=== PATIENT | female | born 1940 | race Caucasian/White ===

== ENCOUNTER 2016-08-13 20:56 | Observation (INO) | payer MEDICARE, OTHER ==
[2016-08-13] MEDS ORDERED: DILTIAZEM HCL INJ 25 MG/5 ML VIAL ONE (21:20)
[2016-08-13] MEDS ORDERED: DILTIAZEM HCL/D5W 125 MG/125 ML RTUINJ IV ONE (21:20)
[2016-08-13] MEDS ORDERED: DILTIAZEM HCL INJ 25 MG/5 ML VIAL IV ONE (21:22)
[2016-08-13] MEDS ORDERED: DILTIAZEM HCL/D5W 125 ML IV PRN ×2 (21:23→23:25)
[2016-08-13 21:27] LABS: ABSOLUTE LYMPHOCYTES (AUTO) 2.5 10^3/uL (0.5-4.7); ABSOLUTE MONOCYTES (AUTO) 0.5 10^3/uL (0.1-1.4); ABSOLUTE NEUT (AUTO) 6.3 10^3/uL (1.7-8.2); BASOPHILS % (AUTO) 0.3 % (0-2); EOSINOPHILS % (AUTO) 0.2 % (0-6); HEMATOCRIT 43.2 % (36.0-47.0); HEMOGLOBIN 14.5 g/dL (12.0-15.5); HGB HCT DIFFERENCE 0.3; MEAN CORPUSCULAR HEMOGLOBIN 33.3 pg (27.0-33.4); MEAN CORPUSCULAR HGB CONC 33.6 g/dL (32.0-36.0); MEAN CORPUSCULAR VOLUME 99 fl (80-97); RED BLOOD COUNT 4.36 10^6/uL (3.72-5.28); RED CELL DISTRIBUTION WIDTH 15.5 % (11.5-14.0); SEGMENTED NEUTROPHILS % (AUTO) 67.5 % (42-78); WHITE BLOOD COUNT 9.4 10^3/uL (4.0-10.5)
[2016-08-13 21:37] LABS: ALANINE AMINOTRANSFERASE 32 U/L (9-52); ALBUMIN 4.4 g/dL (3.5-5.0); ALKALINE PHOSPHATASE 101 U/L (38-126); ANION GAP 12 (5-19); ASPARTATE AMINO TRANSFERASE 29 U/L (14-36); BILIRUBIN,TOTAL 0.6 mg/dL (0.2-1.3); BLOOD UREA NITROGEN 15 mg/dL (7-20); CALCIUM 9.5 mg/dL (8.4-10.2); CARBON DIOXIDE 27 mmol/L (22-30); CHLORIDE 108 mmol/L (98-107); CREATINE KINASE 56 U/L (30-135); GLUCOSE 118 mg/dL (75-110); POTASSIUM 3.6 mmol/L (3.6-5.0); SODIUM 146.7 mmol/L (137-145); TOTAL PROTEIN 7.5 g/dL (6.3-8.2)
[2016-08-13 21:49] LABS: CREATINE KINASE MB 0.59 ng/mL (<4.55)
[2016-08-13 21:53] LABS: TROPONIN I < 0.012 ng/mL
[2016-08-13 22:36] LABS: PROTHROMBIN TIME 13.1 SEC (11.4-15.4)
[2016-08-13 22:37] LABS: PARTIAL THROMBOPLASTIN TIME 27.5 SEC (23.5-35.8)
[2016-08-13] MEDS ORDERED: POTASSIUM CHLORIDE 10 MEQ TABLET.SA PO ONE (22:37)
--- NOTE | 2016-08-13 22:41 | EKG REPORT ---
SEVERITY:- ABNORMAL ECG - ATRIAL FLUTTER WITH 2:1 AV BLOCK LEFT AXIS DEVIATION LEFT VENTRICULAR HYPERTROPHY REPOLARIZATION ABNORMALITY, PROB RATE RELATED BORDERLINE PROLONGED QT INTERVAL : Confirmed by: Adrianne Camacho MD 13-Aug-2016 22:40:44
--- NOTE | 2016-08-13 23:03 | ER Document Report ---
ED General - General Chief Complaint: Palpitations Stated Complaint: CHEST PRESSURE, FAST HEART RATE Time seen by provider: 21:00 Mode of Arrival: Ambulatory Information source: Patient Notes: 75-year-old female with abrupt onset of feeling anxious along with rapid pounding irregular heartbeat midsternal chest pressure shortness of breath and diaphoresis about 6:00 this evening. Symptoms began while patient was at rest. She reports no prior history of symptoms like this. Symptoms persisted until her arrival in the emergency department. She reports being in normal state of health otherwise recently. She follows with Dr. David for what she describes as a weakness in the lower part of her heart but could not provide further details. Her knowledge she has never had any history of irregular heartbeat and is on no anticoagulation. She denies any prior history of ND or cardiac catheterization. Physical Exam: General: Alert, appears well. HEENT: Normocephalic. Atraumatic. PERRLA. Extraocular movements intact. Oropharynx clear. Neck: Supple. Non-tender. Respiratory: No respiratory distress. Clear and equal breath sounds bilaterally. Cardiovascular: Tachycardic and irregular PMI not displaced Abdominal: Normal Inspection. Soft, non-tender. No distension. Normal Bowel Sounds. Back: Non-tender. No deformity or step off. Extremities: Moves all four extremities. Upper extremities: Normal inspection. Non-tender. Normal color. Normal ROM. Normal temperature. Lower extremities: Normal inspection. Non-tender. No edema. Normal color. Normal ROM. Normal temperature. 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 Normal Mood. Skin: Warm. Dry. Normal color. TRAVEL OUTSIDE OF THE [place] IN LAST 30 DAYS: No - Related Data Allergies/Adverse Reactions: No Known Allergies Allergy (Verified 10/26/15 18:28) Past Medical History - Social History Smoking Status: Never Smoker Family History: CAD - Extensive family history of coronary artery disease and pacemaker placement in multiple family members - Past Medical History Cardiac Medical History: Reports: Hx Hypercholesterolemia, Hx Hypertension Musculoskeltal Medical History: Reports Hx Arthritis - Immunizations Immunizations up to date: Yes Hx Diphtheria, Pertussis, Tetanus Vaccination: Yes Review of Systems - Review of Systems Constitutional: denies: Chills, Fever EENT: denies: Ear pain, Throat pain Cardiovascular: See HPI. denies: Syncope, Dizziness Respiratory: Short of breath. denies: Cough Gastrointestinal: denies: Abdominal pain, Diarrhea, Nausea, Vomiting, Blood in vomit, Black stools, Rectal bleeding Genitourinary: denies: Burning, Dysuria Female Genitourinary: denies: Musculoskeletal: denies: Back pain, Muscle pain, Leg swelling Skin: denies: Rash Hematologic/Lymphatic: denies: Swollen glands Neurological/Psychological: denies: Weakness, Numbness Physical Exam - Vital signs Vitals: Resp Pulse Ox 30 H 97 08/13/16 21:18 08/13/16 21:18 Course - Re-evaluation Re-evalutation: 08/13/16 23:04 Patient treated with Cardizem 20 mg IV which produced gradual slowing of her heart rate to the 110's followed by a pause and then conversion to sinus rhythm. She is on Cardizem IV drip 2-1/2 mg per hour. Potassium is low end of normal and this will be supplemented. Patient had resolution of her chest discomfort and subjective sensation of anxiety and rapid heartbeat with correction of her tachyarrhythmia. I discussed case with Dr. Singh of hospitalist service who has asked the patient be admitted - Vital Signs Vital signs: Temp Pulse Resp BP Pulse Ox 98.4 F 18 133/77 H 96 08/13/16 21:34 08/13/16 21:43 08/13/16 21:34 08/13/16 21:34 - Laboratory Result Diagrams: 08/13/16 21:16 08/13/16 21:16 Laboratory results interpreted by me: 08/13/16 08/13/16 21:16 21:16 MCV 99 H RDW 15.5 H Plt Count 145 L Sodium 146.7 H Chloride 108 H Glucose 118 H - Diagnostic Test Radiology reviewed: Image reviewed, Reports reviewed - EKG Interpretation by Me Additional EKG results interpreted by me: 08/13/16 23:04 EKG reviewed by myself shows atrial fibrillation ventricular rate of [address] changes Discharge - Discharge Clinical Impression: Atrial fibrillation Qualifiers: Atrial fibrillation type: paroxysmal Qualified Code(s): I48.0 - Paroxysmal atrial fibrillation Condition: Fair Disposition: ADMITTED INPATIENT Admitting Provider: Hospitalist Unit Admitted: [facility]
[2016-08-13] MEDS ORDERED: METOPROLOL TARTRATE PF/INJ 5 MG/5 ML SDV IV PRN (23:19)
[2016-08-13] MEDS ORDERED: MORPHINE SULFATE 10 MG/ML INJ IV PRN (23:19)
[2016-08-13] MEDS ORDERED: ATORVASTATIN CALCIUM 80 MG TABLET PO SCH (23:30)
[2016-08-14] MEDS ORDERED: ENOXAPARIN SODIUM INJ 80 MG/0.8 ML DISP.SYRIN SUBCUT SCH ×2 (00:45→10:00)
[2016-08-14 03:44] LABS: PROTHROMBIN TIME 14.3 SEC (11.4-15.4)
[2016-08-14 04:08] LABS: CREATINE KINASE MB 0.76 ng/mL (<4.55); TROPONIN I 0.015 ng/mL
--- NOTE | 2016-08-14 06:01 | PDOC H&P ---
History of Present Illness Admission Date/PCP: 08/13/16 23:19 LAUREN CARRANZA, ALEXANDRA-C Patient complains of: Palpitations and chest pain History of Present Illness: PHOEBE SOSA is a 75 year old female with a past medical history of palpitations and hypertension who had been her usual state of health until approximately 4 hours prior to presentation developing tachycardia while at rest evaluating her blood pressure found her heart rate to be in the 160s prompting to seek evaluation emergency room. She complained of chest tightness without radiation mild shortness of breath without nausea vomiting or diaphoresis which completely resolved after rate control by IV diltiazem followed by conversion to normal sinus rhythm. Patient states she is been compliant with her medication regiment of Lopressor recently initiated by sling operator Dr. David, for brief intermittent tachycardia. Patient is noted to have significant vocal tremor and appears quite anxious, she admits over-the- counter medications but denies excessive caffeine, hormone replacement, Sudafed , diet supplements though also admits recently considering taking these medicines for sinus congestion and weight loss. Past Medical History Cardiac Medical History: Reports: Hyperlipidema, Hypertension Musculoskeltal Medical History: Reports: Arthritis Social History Information Source: Patient, Relative Lives with: Family Smoking Status: Never Smoker Frequency of Alcohol Use: None Hx Recreational Drug Use: No Drugs: None Hx Prescription Drug Abuse: No - Advance Directive Resuscitation Status: Full Code Family History Family History: CAD - Extensive family history of coronary artery disease and pacemaker placement in multiple family members Parental Family History Reviewed: Yes Children Family History Reviewed: Yes Sibling(s) Family History Reviewed.: Yes Medication/Allergy Home Medications: Aspirin [[place] Aspirin] 1 tab PO DAILY 08/13/16 Atorvastatin Calcium 40 mg PO QHS 08/13/16 Metoprolol Tartrate [Metoprolol Tartrate] 1 tab PO BID 08/13/16 Nitroglycerin [Nitrostat 0.4 mg (1/150 Gr) Tabs 25/Bottle] 0.4 mg SL Q5MP PRN Allergies/Adverse Reactions: No Known Allergies Allergy (Verified 10/26/15 18:28) Review of Systems Constitutional: ABSENT: chills, fever(s), headache(s), weight gain, weight loss Eyes: ABSENT: visual disturbances Ears: ABSENT: hearing changes Cardiovascular: PRESENT: palpitations Respiratory: ABSENT: cough, hemoptysis Gastrointestinal: ABSENT: abdominal pain, constipation, diarrhea, hematemesis, hematochezia, nausea, vomiting Genitourinary: ABSENT: dysuria, hematuria Musculoskeletal: ABSENT: joint swelling Integumentary: ABSENT: rash, wounds Neurological: ABSENT: abnormal gait, abnormal speech, confusion, dizziness, focal weakness, syncope Psychiatric: PRESENT: other - Though patient appears anxious she also states this is because of her current condition. ABSENT: anxiety, depression, homidical ideation, suicidal ideation Endocrine: ABSENT: cold intolerance, heat intolerance, polydipsia, polyuria Hematologic/Lymphatic: ABSENT: easy bleeding, easy bruising Physical Exam Vital Signs: Temp Pulse Resp BP Pulse Ox 97.7 F 71 14 111/52 L 98 08/14/16 01:15 08/14/16 04:00 08/14/16 01:15 08/14/16 05:02 08/14/16 05:02 Intake & Output 08/12/16 08/13/16 08/14/16 11:59 11:59 11:59 Intake Total 222 Balance 222 Weight 68.6 kg General appearance: PRESENT: cooperative, mild distress, well-developed, well- nourished Head exam: PRESENT: atraumatic, normocephalic Eye exam: PRESENT: conjunctiva pink, EOMI, PERRLA. ABSENT: scleral icterus Ear exam: PRESENT: normal external ear exam Mouth exam: PRESENT: moist, tongue midline Neck exam: ABSENT: carotid bruit, JVD, lymphadenopathy, thyromegaly Respiratory exam: PRESENT: clear to auscultation chapo. ABSENT: rales, rhonchi, wheezes Cardiovascular exam: PRESENT: RRR. ABSENT: diastolic murmur, rubs, systolic murmur Pulses: PRESENT: normal dorsalis pedis pul Vascular exam: PRESENT: normal capillary refill GI/Abdominal exam: PRESENT: normal bowel sounds, soft. ABSENT: distended, guarding, mass, organolmegaly, rebound, tenderness Rectal exam: PRESENT: deferred Extremities exam: PRESENT: full ROM. ABSENT: calf tenderness, clubbing, pedal edema Neurological exam: PRESENT: alert, awake, oriented to person, oriented to place , oriented to time, oriented to situation, CN II-XII grossly intact. ABSENT: motor sensory deficit Psychiatric exam: PRESENT: appropriate affect, normal mood. ABSENT: homicidal ideation, suicidal ideation Skin exam: PRESENT: dry, intact, warm. ABSENT: cyanosis, rash Results Laboratory Results: 08/14/16 03:08 TSH 2.11 08/14/16 03:08 CK-MB (CK-2) 0.76 Troponin I 0.015 Impressions: Chest X-Ray 08/13/16 21:07 IMPRESSION: NO ACUTE RADIOGRAPHIC FINDING IN THE CHEST. Assessment & Plan - Diagnosis (1) Atrial fibrillation Qualifiers: Atrial fibrillation type: paroxysmal Qualified Code(s): I48.0 - Paroxysmal atrial fibrillation Is this a current diagnosis for this admission?: YesPlan: Given history of palpitations I'm concerned for paroxysmal atrial fibrillation though fortunately converted on IV Cardizem I will transition to by mouth Lopressor at an increased dose from 25-50 twice a day and consider 2-D echo if none recent from Dr. David and initiate full dose Lovenox (2) Chest pain Is this a current diagnosis for this admission?: YesPlan: Likely secondary to uncontrolled A. fib I'll evaluate serial cardiac enzymes and consider a Cardiolite stress test if nonrecent with sling operator Dr. David - Time Time Spent: 30 to 50 Minutes
[2016-08-14 06:28] LABS: FREE T3 4.28 pg/mL (2.77-5.27)
[2016-08-14] MEDS ORDERED: NITROGLYCERIN 0.4 MG/TAB 25 TAB/BOTTLE SL PRN (08:51)
[2016-08-14] MEDS ORDERED: METOPROLOL TARTRATE 25 MG TABLET PO SCH ×2 (10:00)
[2016-08-14] MEDS ORDERED: ASPIRIN 81 MG TABLET, CHEWABLE PO SCH (10:00)
[2016-08-14 10:06] LABS: CREATINE KINASE MB 0.67 ng/mL (<4.55)
[2016-08-14] MEDS: DOCUSATE SODIUM 100 MG CAPSULE PO SCH ×2 (10:11→17:22)
[2016-08-14 10:17] LABS: TROPONIN I < 0.012 ng/mL
[2016-08-14 11:56] LABS: APPEARANCE,URINE SLIGHTLY-CLOUDY; BILIRUBIN,URINE NEGATIVE (NEGATIVE); GLUCOSE, URINE NEGATIVE (NEGATIVE); KETONES,URINE NEGATIVE (NEGATIVE); LEUKOCYTE ESTERASE,URINE NEGATIVE (NEGATIVE); NITRITE,URINE NEGATIVE (NEGATIVE); PROTEIN,URINE NEGATIVE (NEGATIVE); URINE SPECIFIC GRAVITY 1.024; UROBILINOGEN,URINE NEGATIVE mg/dL (<2.0)
--- NOTE | 2016-08-14 15:32 | PDOC PROGRESS REPORT ---
Subjective Progress Note for:: 08/14/16 Subjective:: Patient seen on morning rounds. She is resting comfortably in bed eating breakfast. Her daughters bedside. She has had no further episodes of atrial fibrillation. She denies chest pain, shortness breath or dyspnea. She denies nausea, vomiting, or diarrhea. She denies any back pain, arthralgias or myalgias. Physical Exam Vital Signs: Temp Pulse Resp BP Pulse Ox 97.5 F 64 20 117/52 L 98 08/14/16 11:55 08/14/16 14:00 08/14/16 11:55 08/14/16 11:55 08/14/16 11:55 Intake & Output 08/13/16 08/14/16 08/15/16 06:59 06:59 06:59 Intake Total 385 662 Output Total 200 Balance 385 462 Weight 68.6 kg Results Laboratory Results: 08/14/16 08/14/16 08/14/16 03:08 03:08 09:49 TSH 2.11 Free T4 1.30 Free T3 pg/mL 4.28 Urine Color Urine Appearance Urine pH Ur Specific [place] Urine Protein Urine Glucose (UA) Urine Ketones Urine Blood Urine Nitrite Ur Leukocyte Esterase Urine WBC (Auto) Urine RBC (Auto) Stool Occult Blood NEGATIVE 08/14/16 09:49 TSH Free T4 Free T3 pg/mL Urine Color YELLOW Urine Appearance SLIGHTLY-CLOUDY Urine pH 5.0 Ur Specific [place] 1.024 Urine Protein NEGATIVE Urine Glucose (UA) NEGATIVE Urine Ketones NEGATIVE Urine Blood NEGATIVE Urine Nitrite NEGATIVE Ur Leukocyte Esterase NEGATIVE Urine WBC (Auto) 1 Urine RBC (Auto) 9 Stool Occult Blood 08/14/16 08/14/16 03:08 09:02 CK-MB (CK-2) 0.76 0.67 Troponin I 0.015 < 0.012 Impressions: Chest X-Ray 08/13/16 21:07 IMPRESSION: NO ACUTE RADIOGRAPHIC FINDING IN THE CHEST. Assessment & Plan - Diagnosis (1) Atrial fibrillation Qualifiers: Atrial fibrillation type: paroxysmal Qualified Code(s): I48.0 - Paroxysmal atrial fibrillation Is this a current diagnosis for this admission?: YesPlan: She's had no further recurrence since her Cardizem bolus in the ER. Did discuss her case with her member of the legislative council . He recommended starting her on Eliquis 5 mg twice a day. We've increased her metoprolol to 50 g twice a day he agrees with that as well. He states he would give her prescription for diltiazem 60 mg to take by mouth with recurrence of atrial fibrillation post discharge. (2) Chest pain Qualifiers: Ischemic chest pain type: stable angina pectoris Is this a current diagnosis for this admission?: YesPlan: 3 sets of troponins are negative. She had a recent Cardiolite stress test by . He states her mild reversible ischemia. (3) Essential hypertension Is this a current diagnosis for this admission?: YesPlan: Toprol increased to 50 mg twice a day. She has normal times (4) Dyslipidemia Is this a current diagnosis for this admission?: YesPlan: Continue current statin - Time Time Spent with patient: 25-34 minutes Medications reviewed and adjusted accordingly: Yes Anticipated discharge: Home Within: within 24 hours
[2016-08-14 16:14] LABS: CREATINE KINASE MB 0.58 ng/mL (<4.55)
[2016-08-14 16:20] LABS: TROPONIN I < 0.012 ng/mL
[2016-08-14] MEDS ORDERED: APIXABAN 5 MG TABLET PO SCH (18:00)
[2016-08-14] MEDS ORDERED: METOPROLOL TARTRATE 50 MG TABLET PO SCH (22:00)
[2016-08-14] MEDS ORDERED: ATORVASTATIN CALCIUM 40 MG TABLET PO SCH (22:00)
[2016-08-15 00:18] LABS: APPEARANCE,URINE CLEAR; BILIRUBIN,URINE NEGATIVE (NEGATIVE); GLUCOSE, URINE NEGATIVE (NEGATIVE); KETONES,URINE NEGATIVE (NEGATIVE); LEUKOCYTE ESTERASE,URINE MODERATE (NEGATIVE); NITRITE,URINE NEGATIVE (NEGATIVE); PROTEIN,URINE NEGATIVE (NEGATIVE); URINE SPECIFIC GRAVITY 1.011; UROBILINOGEN,URINE NEGATIVE mg/dL (<2.0)
[2016-08-15] MEDS ORDERED: ATORVASTATIN CALCIUM 40 MG TABLET PO ONE (00:45)
[2016-08-15 08:52] VITALS: BP 110/47
--- NOTE | 2016-08-15 14:01 | PDOC DISCHARGE SUMMARY ---
General - Admit/Disc Date/PCP Admission Date/Primary Care Provider: 08/13/16 23:19 ALEXANDRA MARIA-[place] Discharge Date: 08/15/16 - Discharge Diagnosis (1) Atrial fibrillation Is this a current diagnosis for this admission?: YesSummary: Patient presented with atrial fibrillation with 160's. She converted with single bolus of IV Cardiazem and has not had any recurrence. Discussed with patient's baling machine tender Dr David, who felt patient should be placed on Eliquis therapy for possible paroxymal atrial fibrillation. We increased metoprolol to 50 mg bid as well. (2) Chest pain Is this a current diagnosis for this admission?: YesSummary: Troponins are remained negative. (3) Essential hypertension Is this a current diagnosis for this admission?: YesSummary: Continue current medication she is normotensive (4) Dyslipidemia Is this a current diagnosis for this admission?: YesSummary: Continue statin - Additional Information Resuscitation Status: Full Code Discharge Diet: Regular Discharge Activity: Activity As Tolerated, Balance Activity w/Rest Home Medications: Aspirin [Ecotrin 81 mg EC Tablet] 81 mg PO DAILY 08/14/16 Atorvastatin Calcium [Lipitor 40 mg Tablet] 40 mg PO DAILY 08/14/16 Nitroglycerin [Nitrostat] 0.4 mg SL Q5MP PRN 08/14/16 Apixaban [Eliquis 5 mg Tablet] 5 mg PO BID #60 tablet 08/15/16 Aspirin [Aspirin 81 mg Chewable Tablet] 81 mg PO DAILY tab.chew 08/15/16 Diltiazem HCl [Cardizem 60 mg Tablet] 60 mg PO BID PRN #60 tablet 08/15/16 Metoprolol Tartrate [Lopressor 50 mg Tablet] 50 mg PO Q12 #60 tablet 08/15/16 History of Present Illness Patient complains of: Palpitations History of Present Illness: PHOEBE SOSA is a 75 year old female with a past medical history of palpitations and hypertension who had been her usual state of health until approximately 4 hours prior to presentation developing tachycardia while at rest evaluating her blood pressure found her heart rate to be in the 160s prompting to seek evaluation emergency room. She complained of chest tightness without radiation mild shortness of breath without nausea vomiting or diaphoresis which completely resolved after rate control by IV diltiazem followed by conversion to normal sinus rhythm. Patient states she is been compliant with her medication regiment of Lopressor recently initiated by baling machine tender Dr. David, for brief intermittent tachycardia. Patient is noted to have significant vocal tremor and appears quite anxious, she admits over-the- counter medications but denies excessive caffeine, hormone replacement, Sudafed , diet supplements though also admits recently considering taking these medicines for sinus congestion and weight loss. Hospital Course Hospital Course: Patient was admitted to [facility] on telemetry. She was kept on IV diltiazem 2.5 mg per hour overnight. She had no further atrial fibrillation. We increased her metoprolol to 50 mg twice a day the following morning. The IV diltiazem was discontinued. She had no further bouts of atrial fibrillation. Her case was discussed with her baling machine tender , who states he had done a recent echo, stress test, and Holter monitor on her. She did have periods of paroxysmal atrial tachycardia, but no atrial fibrillation. He does feel she needs to be on Eliquis therapy due to the possibility paroxysmal atrial fibrillation. Today she's had no further arrhythmias she is tolerating Eliquis. Feels ready for discharge. She will follow up with Dr. David next 2 weeks. Physical Exam Vital Signs: Temp Pulse Resp BP Pulse Ox 98.1 F 63 18 110/47 L 96 08/15/16 08:50 08/15/16 08:50 08/15/16 08:50 08/15/16 08:50 08/15/16 08:50 Intake & Output 08/14/16 08/15/16 08/16/16 06:59 06:59 06:59 Intake Total 385 1852 Output Total 1300 Balance 385 552 Weight 68.6 kg 70.3 kg General appearance: PRESENT: no acute distress, well-developed, well-nourished Head exam: PRESENT: atraumatic, normocephalic Eye exam: PRESENT: conjunctiva pink, EOMI, PERRLA. ABSENT: scleral icterus Ear exam: PRESENT: normal external ear exam Mouth exam: PRESENT: moist, tongue midline Neck exam: ABSENT: carotid bruit, JVD, lymphadenopathy, thyromegaly Respiratory exam: PRESENT: clear to auscultation chapo. ABSENT: rales, rhonchi, wheezes Cardiovascular exam: PRESENT: RRR. ABSENT: diastolic murmur, rubs, systolic murmur Pulses: PRESENT: normal dorsalis pedis pul Vascular exam: PRESENT: normal capillary refill GI/Abdominal exam: PRESENT: normal bowel sounds, soft. ABSENT: distended, guarding, mass, organolmegaly, rebound, tenderness Rectal exam: PRESENT: deferred Extremities exam: PRESENT: full ROM. ABSENT: calf tenderness, clubbing, pedal edema Neurological exam: PRESENT: alert, awake, oriented to person, oriented to place , oriented to time, oriented to situation, CN II-XII grossly intact. ABSENT: motor sensory deficit Psychiatric exam: PRESENT: appropriate affect, normal mood. ABSENT: homicidal ideation, suicidal ideation Skin exam: PRESENT: dry, intact, warm. ABSENT: cyanosis, rash Results Laboratory Results: 08/14/16 23:55 Urine Color YELLOW Urine Appearance CLEAR Urine pH 6.0 Ur Specific [place] 1.011 Urine Protein NEGATIVE Urine Glucose (UA) NEGATIVE Urine Ketones NEGATIVE Urine Blood MODERATE H Urine Nitrite NEGATIVE Ur Leukocyte Esterase MODERATE H Urine WBC (Auto) 11 Urine RBC (Auto) 7 08/14/16 08/14/16 08/14/16 03:08 09:02 15:25 CK-MB (CK-2) 0.76 0.67 0.58 Troponin I 0.015 < 0.012 < 0.012 Impressions: Chest X-Ray 08/13/16 21:07 IMPRESSION: NO ACUTE RADIOGRAPHIC FINDING IN THE CHEST. Qualifiers PATEINT BEING DISCHARGED WITH ANY OF THE FOLLOWING DIAGNOSIS?: No Plan Discharge Plan: Home with family Time Spent: Less than 30 Minutes
== END 2016-08-15 10:15 | disposition home or self-care (01) ==
LOC: ER 20:56 → UNDOADMIN 23:10 → EH 23:10 → INTOOBSV 23:19 → EH 08-14 01:14 → 3W 08-14 01:14
PROVIDERS: ADMIT Internal Medicine; ATTEND Internal Medicine
DX: I48.0 Paroxysmal atrial fibrillation (principal); R07.9 Chest pain, unspecified; I10 Essential (primary) hypertension; E78.5 Hyperlipidemia, unspecified
CPT/HCPCS: 93005; 99285; 96365; 36415 ×2; 84439; 82553 ×2; 82550; 83735; 84443; 85025; 85610 ×2; 85730; 82272; 80053; 81001; 84484 ×2; 84481; 83880; 71010; 93010; G0378 ×2; A9270 ×7; J3490 ×4; J1650

== ENCOUNTER 2016-08-30 23:57 | Emergency (ER) | payer MEDICARE, OTHER ==
[2016-08-31 01:00] VITALS: BP 154/81
== END 2016-08-31 01:00 | disposition left against medical advice (07) ==
LOC: ER 23:57
DX: Z53.21 Procedure and treatment not carried out due to patient leaving prior to being seen by health care provider (principal)

== ENCOUNTER → 2016-09-16 | Outpatient (CLI) | payer MEDICARE, OTHER ==
[2016-09-16 10:30] LABS: ABSOLUTE LYMPHOCYTES (AUTO) 1.7 10^3/uL (0.5-4.7); ABSOLUTE MONOCYTES (AUTO) 0.3 10^3/uL (0.1-1.4); ABSOLUTE NEUT (AUTO) 6.4 10^3/uL (1.7-8.2); BASOPHILS % (AUTO) 0.2 % (0-2); EOSINOPHILS % (AUTO) 0.2 % (0-6); HEMATOCRIT 34.8 % (36.0-47.0); HEMOGLOBIN 11.9 g/dL (12.0-15.5); HGB HCT DIFFERENCE 0.9; LYMPHOCYTES % (AUTO) 20.6 % (13-45); MEAN CORPUSCULAR HEMOGLOBIN 33.8 pg (27.0-33.4); MEAN CORPUSCULAR HGB CONC 34.1 g/dL (32.0-36.0); MEAN CORPUSCULAR VOLUME 99 fl (80-97); MONOCYTES % (AUTO) 3.6 % (3-13); RED BLOOD COUNT 3.51 10^6/uL (3.72-5.28); SEGMENTED NEUTROPHILS % (AUTO) 75.4 % (42-78); WHITE BLOOD COUNT 8.4 10^3/uL (4.0-10.5)
[2016-09-16 10:42] LABS: APPEARANCE,URINE CLEAR; BILIRUBIN,URINE NEGATIVE (NEGATIVE); GLUCOSE, URINE NEGATIVE (NEGATIVE); KETONES,URINE NEGATIVE (NEGATIVE); LEUKOCYTE ESTERASE,URINE SMALL (NEGATIVE); NITRITE,URINE NEGATIVE (NEGATIVE); PROTEIN,URINE NEGATIVE (NEGATIVE); URINE SPECIFIC GRAVITY 1.015; UROBILINOGEN,URINE NEGATIVE mg/dL (<2.0)
[2016-09-16 10:55] LABS: ALANINE AMINOTRANSFERASE 28 U/L (9-52); ALBUMIN 3.9 g/dL (3.5-5.0); ALKALINE PHOSPHATASE 82 U/L (38-126); ANION GAP 10 (5-19); ASPARTATE AMINO TRANSFERASE 26 U/L (14-36); BILIRUBIN,TOTAL 0.5 mg/dL (0.2-1.3); BLOOD UREA NITROGEN 15 mg/dL (7-20); CALCIUM 8.7 mg/dL (8.4-10.2); CARBON DIOXIDE 27 mmol/L (22-30); CHLORIDE 108 mmol/L (98-107); CREATININE RESULT 0.58 mg/dL (0.52-1.25); GLUCOSE 99 mg/dL (75-110); POTASSIUM 4.2 mmol/L (3.6-5.0); SODIUM 145.3 mmol/L (137-145); TOTAL PROTEIN 6.4 g/dL (6.3-8.2)
== END ==
LOC: OD 09:27
PROVIDERS: ATTEND Internal Medicine Cardiovascular Disease
DX: R00.2 Palpitations (principal); Z79.01 Long term (current) use of anticoagulants; Z79.899 Other long term (current) drug therapy
CPT/HCPCS: 36415; 80048; 80076; 81001; 82272; 83735; 84443; 85025; 85730

== ENCOUNTER → 2016-10-30 | Outpatient (CLI) | payer MEDICARE, OTHER ==
--- NOTE | 2016-10-30 10:53 | RADIOLOGY REPORT (SQ) ---
EXAM DESCRIPTION: CT ABD/PELVIS COMBO COMPLETED DATE/TIME: 10/30/2016 9:36 am REASON FOR STUDY: MICROHEMATURIA (R31.29) R31.29 OTHER MICROSCOPIC HEMATURIA COMPARISON: None. TECHNIQUE: CT scan of the abdomen and pelvis performed with and without intravenous contrast, and wi thout oral contrast. Contrasted imaging performed helical scanning technique and dynamic intravenous contrast injection. Images reviewed with lung, soft tissue, and bone windows. Reconstructed coronal a nd sagittal MPR images reviewed. Delayed images for evaluation of the urinary system also acquired. A ll images stored on PACS. All CT scanners at this facility use dose modulation, iterative reconstruction, and/or weight based d osing when appropriate to reduce radiation dose to as low as reasonably achievable (ALARA). [facility]: Dose Right [facility]: CareDose [facility]: Dose Right [facility]: Teradose 4D [facility]: New [employer] CONTRAST TYPE AND DOSE: 74 mL Isovue 370- low osmolar. RENAL FUNCTION: Creatinine 0.7 RADIATION DOSE: 27.14 mGy. LIMITATIONS: None. FINDINGS: NON-CONTRASTED IMAGING: No renal, ureteral, or bladder calcifications. Calcified gallston es without gallbladder wall thickening or pericholecystic fluid. POST-CONTRASTED IMAGING: LOWER CHEST: No significant findings. No nodules or infiltrates. Mild cardiomegaly LIVER: Normal size. No masses or dilated ducts. SPLEEN: Normal size. No focal lesions. PANCREAS: No masses. No significant calcifications. No adjacent inflammation or peripancreatic fluid collections. Pancreatic duct not dilated. GALLBLADDER: Gallstones. No inflammatory changes to suggest cholecystitis. ADRENAL GLANDS: No significant masses or asymmetry. RIGHT KIDNEY AND URETER: No solid masses. No significant calcifications. No hydronephrosis or hyd roureter. LEFT KIDNEY AND URETER: No solid masses. Left lower pole parapelvic cysts. No significant calcifica tions. No hydronephrosis or hydroureter. AORTA AND VESSELS: No aneurysm. No dissection. Renal arteries, SMA, celiac without stenosis. RETROPERITONEUM: No retroperitoneal adenopathy, hemorrhage or masses. BOWEL AND PERITONEAL CAVITY: No masses or inflammatory changes. No free fluid or peritoneal masses. Sigmoid diverticuli without CT signs of acute diverticulitis. APPENDIX: Normal. PELVIS: No mass or free fluid. Normal bladder. Small uterus and ovaries postmenopausal. ABDOMINAL WALL: No masses. No hernias. BONES: Multilevel facet arthropathy in the lumbar spine with mild degenerative grade 1 anterolisthesi s of L4 over L5 OTHER: No other significant finding. IMPRESSION: Calcified gallstones without cholecystitis. Distal colon diverticuli without CT signs of acute diverticulitis No renal, ureteral, or bladder calculi. No hydronephrosis or hydroureter. No gross bladder mucosal lesions. TECHNICAL DOCUMENTATION: JOB ID: [id number] Quality ID # [id number]: Final reports with documentation of one or more dose reduction techniques (e.g., Au tomated exposure control, adjustment of the mA and/or kV according to patient size, use of iterative reconstruction technique) 2010 [employer]- All Rights Reserved
== END ==
LOC: RAD 08:43
PROVIDERS: ATTEND Urology
DX: R31.29 Other microscopic hematuria (principal)
CPT/HCPCS: 74178; 82565

== ENCOUNTER → 2017-01-21 | Outpatient (CLI) | payer MEDICARE, OTHER | LOC: OD 16:58 | PROVIDERS: ATTEND Internal Medicine Gastroenterology | DX: D64.9 Anemia, unspecified (principal) | CPT/HCPCS: 36415; 82746 ==

== ENCOUNTER → 2017-02-08 | Outpatient (CLI) | payer MEDICARE, OTHER ==
[2017-02-08 12:09] LABS: APPEARANCE,URINE CLEAR; BILIRUBIN,URINE NEGATIVE (NEGATIVE); GLUCOSE, URINE NEGATIVE (NEGATIVE); KETONES,URINE NEGATIVE (NEGATIVE); LEUKOCYTE ESTERASE,URINE NEGATIVE (NEGATIVE); NITRITE,URINE NEGATIVE (NEGATIVE); PROTEIN,URINE NEGATIVE (NEGATIVE); URINE SPECIFIC GRAVITY 1.002; UROBILINOGEN,URINE NEGATIVE mg/dL (<2.0)
[2017-02-08 12:20] LABS: ABSOLUTE LYMPHOCYTES (AUTO) 1.9 10^3/uL (0.5-4.7); ABSOLUTE MONOCYTES (AUTO) 0.2 10^3/uL (0.1-1.4); ABSOLUTE NEUT (AUTO) 1.4 10^3/uL (1.7-8.2); BASOPHILS % (AUTO) 0.1 % (0-2); EOSINOPHILS % (AUTO) 0.2 % (0-6); HEMATOCRIT 32.3 % (36.0-47.0); HEMOGLOBIN 10.7 g/dL (12.0-15.5); HGB HCT DIFFERENCE -0.2; LYMPHOCYTES % (AUTO) 54.7 % (13-45); MEAN CORPUSCULAR HEMOGLOBIN 35.5 pg (27.0-33.4); MEAN CORPUSCULAR HGB CONC 33.1 g/dL (32.0-36.0); MEAN CORPUSCULAR VOLUME 107 fl (80-97); MONOCYTES % (AUTO) 5.2 % (3-13); RED BLOOD COUNT 3.01 10^6/uL (3.72-5.28); RED CELL DISTRIBUTION WIDTH 16.5 % (11.5-14.0); SEGMENTED NEUTROPHILS % (AUTO) 39.8 % (42-78); WHITE BLOOD COUNT 3.4 10^3/uL (4.0-10.5)
[2017-02-08 12:44] LABS: BLOOD UREA NITROGEN 15 mg/dL (7-20); CALCIUM 9.5 mg/dL (8.4-10.2); CREATININE RESULT 0.66 mg/dL (0.52-1.25); GLUCOSE 97 mg/dL (75-110)
[2017-02-08 12:45] LABS: ALANINE AMINOTRANSFERASE 30 U/L (9-52); ALBUMIN 3.9 g/dL (3.5-5.0); ALKALINE PHOSPHATASE 80 U/L (38-126); ANION GAP 8 (5-19); ASPARTATE AMINO TRANSFERASE 27 U/L (14-36); BILIRUBIN,DIRECT 0.2 mg/dL (0.0-0.4); BILIRUBIN,TOTAL 0.5 mg/dL (0.2-1.3); CARBON DIOXIDE 30 mmol/L (22-30); CHLORIDE 106 mmol/L (98-107); POTASSIUM 4.9 mmol/L (3.6-5.0); SODIUM 144.1 mmol/L (137-145); TOTAL PROTEIN 6.6 g/dL (6.3-8.2)
== END ==
LOC: OD 10:56
PROVIDERS: ATTEND Internal Medicine Cardiovascular Disease
DX: Z79.01 Long term (current) use of anticoagulants (principal); Z79.899 Other long term (current) drug therapy
CPT/HCPCS: 36415; 80048; 80076; 81001; 82272; 85025; 85730

== ENCOUNTER 2017-03-06 02:16 | Inpatient (IN) | payer MEDICARE, OTHER ==
--- NOTE | 2017-03-06 03:08 | ER Document Report ---
ED General - General Chief Complaint: Dizziness Stated Complaint: DIZZINESS Time Seen by Provider: 03/06/17 02:50 Notes: Patient is a 76-year-old female comes emergency department for chief complaint of an episode just after midnight where she felt like her heart was racing, she felt lightheaded, and she broke out into a sweat. She felt this way for about 30 minutes. Symptoms have resolved now. She denies chest pain, shortness of breath, she does report that she had fevers yesterday and the day before that. She is on Levaquin for this. She is on chemotherapy for myelodysplastic syndrome, she also has a history of atrial fibrillation and is on Cardizem, Lopressor, and Eliquis. She has hypertension and hyperlipidemia. Daughters are at bedside. TRAVEL OUTSIDE OF THE [place] IN LAST 30 DAYS: No - Related Data Allergies/Adverse Reactions: No Known Allergies Allergy (Verified 08/31/16 00:40) Past Medical History - General Information source: Patient - Social History Smoking Status: Never Smoker Frequency of alcohol use: None Drug Abuse: None Lives with: Family Family History: CAD - Extensive family history of coronary artery disease and pacemaker placement in multiple family members Patient has suicidal ideation: No Patient has homicidal ideation: No - Past Medical History Cardiac Medical History: Reports: Hx Hypercholesterolemia, Hx Hypertension Renal/ Medical History: Denies: Hx Peritoneal Dialysis Musculoskeltal Medical History: Reports Hx Arthritis - Immunizations Immunizations up to date: Yes Hx Diphtheria, Pertussis, Tetanus Vaccination: Yes Hx Pneumococcal Vaccination: 02/29/16 Review of Systems - Review of Systems Constitutional: No symptoms reported EENT: No symptoms reported Cardiovascular: See HPI Respiratory: See HPI Gastrointestinal: No symptoms reported Genitourinary: No symptoms reported Female Genitourinary: No symptoms reported Musculoskeletal: No symptoms reported Skin: No symptoms reported Hematologic/Lymphatic: No symptoms reported Neurological/Psychological: No symptoms reported Physical Exam - Vital signs Vitals: Temp Pulse Resp BP Pulse Ox 97.8 F 100 18 137/63 H 97 03/06/17 02:19 03/06/17 02:19 03/06/17 02:19 03/06/17 02:19 03/06/17 02:19 Interpretation: Normal - General General appearance: Appears well, Alert In distress: None - HEENT Head: Normocephalic, Atraumatic Eyes: Normal Conjunctiva: Normal Extraocular movements intact: Yes Eyelashes: Normal Pupils: PERRL Sinus: Normal Nasal: Normal Mouth/Lips: Normal Mucous membranes: Normal Pharynx: Normal Neck: Normal - Respiratory Respiratory status: No respiratory distress Chest status: Nontender Breath sounds: Normal Chest palpation: Normal - Cardiovascular Rhythm: Regular. No: Irregularly irregular, Tachycardia Heart sounds: Normal auscultation, S1 appreciated, S2 appreciated Murmur: No - Abdominal Inspection: Normal Distension: No distension Bowel sounds: Normal Tenderness: Nontender. No: Tender, Guarding Organomegaly: No organomegaly - Back Back: Normal, Nontender. No: Tender, CVA tenderness - Extremities General upper extremity: Normal inspection, Nontender, Normal ROM, Normal strength General lower extremity: Normal inspection, Nontender, Normal ROM, Normal strength. No: Edema - Neurological Neuro grossly intact: Yes Cognition: Normal Orientation: AAOx4 [place] Coma Scale Eye Opening: Spontaneous [place] Coma Scale Verbal: Oriented [place] Coma Scale Motor: Obeys Commands [place] Coma Scale Total: 15 Speech: Normal Motor strength normal: LUE, RUE, LLE, RLE Sensory: Normal - Psychological Associated symptoms: Normal affect, Normal mood - Skin Skin Temperature: Warm Skin Moisture: Dry Skin Color: Normal Course - Re-evaluation Re-evalutation: Patient has remained well-appearing, symptom-free, no concerning findings on cardiac monitoring. CBC shows pancytopenia consistent with chemotherapy, chemistry unremarkable including cardiac enzyme. Chest x-ray appears clear, still pending reading (delayed due to a system problem per emergency medical tech when I called). Discussed workup with family. They are uncomfortable going home based on patient's symptoms, I am concerned about a tachyarrhythmia causing her symptoms , based on patient's history this is most likely atrial fibrillation with rapid ventricular response but this is uncertain at this time. Patient has had recent echocardiogram but does not know the results yet. Will consider admit for observation based on age, history, and her concerning symptoms. Discussed with Dr. Adams, recommends admit for observation. Discussed with Dr. Morales, patient to be admitted to [facility] observation, patient and family members are very satisfied with this plan. - Vital Signs Vital signs: Temp Pulse Resp BP Pulse Ox 97.8 F 100 16 139/58 H 100 03/06/17 02:19 03/06/17 02:19 03/06/17 05:31 03/06/17 05:31 03/06/17 05:31 - Laboratory Result Diagrams: 03/06/17 03:22 03/06/17 03:22 Laboratory results interpreted by me: 03/06/17 03/06/17 03/06/17 03:22 03:22 05:29 WBC 2.6 L RBC 2.51 L Hgb 9.1 L Hct 26.1 L MCV 104 H MCH 36.3 H RDW 16.0 H Plt Count 52 L Seg Neuts % (Manual) 9 L Lymphocytes % (Manual) 73 H Abs Neuts (Manual) 0.2 L Glucose 113 H Urine Blood SMALL H Urine Ascorbic Acid 40 H Discharge - Discharge Clinical Impression: Palpitations, Diaphoresis, Lightheadedness Condition: Stable Disposition: ADMITTED OBSERVATION Admitting Provider: Hospitalist Unit Admitted: [facility]
[2017-03-06 03:43] LABS: HEMATOCRIT 26.1 % (36.0-47.0); HEMOGLOBIN 9.1 g/dL (12.0-15.5); HGB HCT DIFFERENCE 1.2; MEAN CORPUSCULAR HEMOGLOBIN 36.3 pg (27.0-33.4); MEAN CORPUSCULAR HGB CONC 34.9 g/dL (32.0-36.0); MEAN CORPUSCULAR VOLUME 104 fl (80-97); RED BLOOD COUNT 2.51 10^6/uL (3.72-5.28); WHITE BLOOD COUNT 2.6 10^3/uL (4.0-10.5)
[2017-03-06 04:05] LABS: ALANINE AMINOTRANSFERASE 30 U/L (9-52); ALBUMIN 3.6 g/dL (3.5-5.0); ALKALINE PHOSPHATASE 64 U/L (38-126); ANION GAP 8 (5-19); ASPARTATE AMINO TRANSFERASE 24 U/L (14-36); BILIRUBIN,DIRECT 0.2 mg/dL (0.0-0.4); BILIRUBIN,TOTAL 0.6 mg/dL (0.2-1.3); BLOOD UREA NITROGEN 12 mg/dL (7-20); CALCIUM 9.1 mg/dL (8.4-10.2); CARBON DIOXIDE 25 mmol/L (22-30); CHLORIDE 107 mmol/L (98-107); CREATINE KINASE 33 U/L (30-135); CREATININE RESULT 0.58 mg/dL (0.52-1.25); GLUCOSE 113 mg/dL (75-110); MAGNESIUM 2.1 mg/dL (1.6-2.3); POTASSIUM 4.6 mmol/L (3.6-5.0); TOTAL PROTEIN 6.4 g/dL (6.3-8.2)
[2017-03-06 04:13] LABS: ACANTHOCYTES SLIGHT; ANISOCYTOSIS 1+; BASOPHILS % (MANUAL) 0 % (0-2); EOSINOPHILS % (MANUAL) 0 % (0-6); LYMPHOCYTES % (MANUAL) 73 % (13-45); OVALOCYTES 1+; POIKILOCYTOSIS 1+; POLYCHROMASIA SLIGHT; TEAR DROP CELLS 1+; TOTAL CELLS COUNTED 100
[2017-03-06 04:15] LABS: CREATINE KINASE MB 0.33 ng/mL (<4.55)
[2017-03-06 04:17] LABS: TROPONIN I < 0.012 ng/mL
[2017-03-06 05:51] LABS: APPEARANCE,URINE CLEAR; BILIRUBIN,URINE NEGATIVE (NEGATIVE); GLUCOSE, URINE NEGATIVE (NEGATIVE); KETONES,URINE NEGATIVE (NEGATIVE); LEUKOCYTE ESTERASE,URINE NEGATIVE (NEGATIVE); NITRITE,URINE NEGATIVE (NEGATIVE); PROTEIN,URINE NEGATIVE (NEGATIVE); URINE SPECIFIC GRAVITY 1.006; UROBILINOGEN,URINE NEGATIVE mg/dL (<2.0)
[2017-03-06] MEDS ORDERED: ACETAMINOPHEN 325 MG TABLET PO PRN (07:50)
[2017-03-06] MEDS ORDERED: PROMETHAZINE HCL 25 MG TABLET PO PRN (07:50)
--- NOTE | 2017-03-06 08:05 | PDOC H&P ---
History of Present Illness Admission Date/PCP: 03/06/17 05:[address] David Oncology Dr. Rodriguez--myelodysplastic syndrome Patient complains of: Palpitations History of Present Illness: PHOEBE SOSA is a 76 year old female with underlying myelodysplastic syndrome, having been started on Levaquin 2 days ago for low- grade fever 100.[address] Rodriguez, along with underlying atrial fibrillation, currently on Eliquis for same, who presents to the emergency room for evaluation of above complaint. Patient has been discussed with emergency room nurse practitioner who evaluated the patient. Approximately midnight, she had the sensation that her heart was racing, with associated lightheadedness and diaphoresis. Lasted for approximately 30 minutes , and resolved on its own. No symptoms by the time she arrived in the emergency room. Denied chest pain or shortness of breath. Denies any "sore spot" anywhere on her body. No unusual cough. Currently resting quietly, without specific complaint. Hospitalized on our service August 13- of this year, with final diagnoses including atrial fibrillation, and chest pain. History and physical and discharge summary have been reviewed. Dictation via voice recognition software. Laboratory results are listed in [facility] and are reviewed. Portable AP chest x-ray visualized; radiology interpretation pending. EKG reviewed and compared to prior tracing from August 13 of this year. Social history/personal habits: . Lives with . Retired. No use of alcohol tobacco or illicit drugs. No known drug allergies. Home medications initially autopopulated into [facility] may not accurately reflect patient's true medications, dosages, and/or frequencies. strain technician to reconcile medications. Unfortunately, patient not certain of all medications/dosages/frequencies. REVIEW OF SYSTEMS: Constitutional: See history and present illness. Eyes: Wears glasses. ENT: No swallowing problems or complaints. Partial hearing loss. Pulmonary: No current complaints. Cardiovascular: See history and present illness. Gastrointestinal: No current complaints, including nausea or vomiting. Skin: Scheduled to see a major case detective in the near future for suspicious skin lesion noted by Dr. Rodriguez, per daughter. Hematologic: Easy bruising. Neurologic: No current complaints, including numbness or tingling. Musculoskeletal: Joint pain from arthritis. Psychiatric: Denies anxiety or depression. Endocrine: No current complaints, including polyuria. Genitourinary: No current complaints, including dysuria. PHYSICAL EXAMINATION: 77.1 kg. Height is not recorded on the chart. Blood pressure 132/52. Pulse 90 and regular. 97% saturation on room air. Respirations are 14 and unlabored. Temperature 97.8. Somewhat overweight otherwise well-nourished well-developed female who appears a bit younger than her stated age. Pleasant awake alert and cooperative. No obvious distress other than somewhat anxious. 2 daughters are present at her side; patient approves. Skin is warm and dry. No grossly obvious evidence of rash in areas of skin examined. No subcutaneous nodules palpated. ENT: Slightly hard of hearing to normal conversation. Tongue midline on protrusion pink and slightly tacky. Eyes: No scleral icterus. Pupils equal and reactive to light at 4 mm. [place] conjunctivae. Neck is supple and nontender to gentle active range of motion and palpation. Midline trachea. No palpable thyroid nodule mass enlargement or tenderness. Lymphatic: No palpable cervical or clavicular nodes. Neck and lymphatic exams limited by patient body habitus. Psychiatric: Reasonable insight into acute and chronic medical issues. Oriented to time location and why here. Lungs: Auscultation reveals clear and equal breath sounds bilaterally. No use of accessory respiratory muscles. Cardiovascular: Heart regular rate and rhythm, without gallop murmur or rub. No carotid or abdominal aortic bruits. No ankle or pedal edema. Faintly palpable dorsalis pedis pulses. Abdomen:soft slightly distended nontender with positive bowel sounds. Unable to adequately evaluate abdomen for masses or organomegaly due to distention. Extremities: Feet are warm and dry. No calf tenderness to compression. No grossly obvious visual evidence of calf swelling. Gentle manipulation of lower extremities fails to reveal any obvious evidence of injury or instability to knees hips or ankles. Neurologic: Moves upper extremities grossly normally. Patellar reflexes absent. Absent Babinski. Light touch is intact at feet. Dorsiflexion and plantarflexion of feet 5 / 5 and symmetric. Past Medical History Cardiac Medical History: Reports: Hyperlipidema, Hypertension Musculoskeltal Medical History: Reports: Arthritis Social History Information Source: Patient, Relative - 2 daughters, Emergency Med Personnel, [facility] Records Lives with: Family Smoking Status: Never Smoker Frequency of Alcohol Use: None Hx Recreational Drug Use: No Drugs: None Hx Prescription Drug Abuse: No - Advance Directive Resuscitation Status: Full Code Surrogate healthcare decision maker:: Family History Family History: CAD - Extensive family history of coronary artery disease and pacemaker placement in multiple family members Parental Family History Reviewed: Yes - Parents of heart disease. Children Family History Reviewed: Yes - Daughter had liposarcoma excised last year. Sibling(s) Family History Reviewed.: Yes - Heart disease Medication/Allergy Home Medications: RX: Apixaban [Eliquis] 5 mg PO Q12 03/06/17 RX: Aspirin [Ecotrin 81 mg EC Tablet] 81 mg PO DAILY 03/06/17 RX: Atorvastatin Calcium [Lipitor 40 mg Tablet] 40 mg PO DAILY 03/06/17 RX: Docusate Sodium [Colace 100 mg Capsule] 100 mg PO DAILYP PRN 03/06/17 RX: Nitroglycerin [Nitrostat] 0.4 mg PO Q5MP PRN 03/06/17 RX: Amox Tr/Potassium Clavulanate [Augmentin "500" Tablet] 1 tab PO Q8 #30 tablet 03/10/17 RX: Fluticasone Propionate [Flonase Nasal Pike 50 Mcg/Pike 16 gm] 2 spray NASL Q12 #1 spray.pump 03/10/17 RX: Loratadine [Claritin 10 mg Tablet] 10 mg PO QHS #30 tablet 03/10/17 RX: Metoprolol Succinate [Toprol Xl 50 mg Tab.sr] 100 mg PO Q12 #120 tab.sr.24h 03/10/17 Allergies/Adverse Reactions: No Known Allergies Allergy (Verified 08/31/16 00:40) Physical Exam Vital Signs: Temp Pulse Resp BP Pulse Ox 98.3 F 82 19 113/88 H 95 03/06/17 07:25 03/06/17 07:25 03/06/17 07:25 03/06/17 07:25 03/06/17 07:25 Assessment & Plan - Diagnosis (1) Fever Qualifiers: Fever type: unspecified Qualified Code(s): R50.9 - Fever, unspecified Is this a current diagnosis for this admission?: Yes Plan: Blood and urine cultures have been drawn. Continue Levaquin. No obvious source of infection at this point in time. (2) Palpitations Is this a current diagnosis for this admission?: Yes Plan: Uncertain source or significance--normal reaction to fever versus atrial fibrillation. We will maintain on certified professional midwife. Serial troponins; results to be called today hospitalist team. I have strongly encouraged patient not to get out of bed without notifying staff , to avoid a fall with injury. Knee high SCDs for DVT prophylaxis; with patient on Eliquis, no need for Lovenox or heparin. Impression and plans were discussed with patient and 2 daughters, all of whom concur. Time spent in evaluation and management of patient: 70 minutes. (3) Pancytopenia Is this a current diagnosis for this admission?: Yes Plan: Protective precautions. Cardiac neutropenic diet. (4) MDS (myelodysplastic syndrome) Is this a current diagnosis for this admission?: Yes (5) Anticoagulated Is this a current diagnosis for this admission?: Yes Plan: Resume home medications as appropriate once these have been determined and reviewed. (6) Atrial fibrillation Qualifiers: Atrial fibrillation type: paroxysmal Qualified Code(s): I48.0 - Paroxysmal atrial fibrillation Is this a current diagnosis for this admission?: Yes Plan: Resume home medications as appropriate once these have been determined and reviewed. (7) Dyslipidemia Is this a current diagnosis for this admission?: Yes Plan: Resume home medications as appropriate once these have been determined and reviewed. (8) Essential hypertension Is this a current diagnosis for this admission?: Yes Plan: Resume home medications as appropriate once these have been determined and reviewed. - Time Time Spent: 50 to 70 Minutes Medications reviewed and adjusted accordingly: No - Patient uncertain of certain medications. Anticipated discharge: Home Within: within 48 hours
--- NOTE | 2017-03-06 08:12 | RADIOLOGY REPORT (SQ) ---
EXAM DESCRIPTION: CHEST SINGLE VIEW COMPLETED DATE/TIME: 03/06/2017 5:04 am REASON FOR STUDY: PALPITATIONS, DIAPHROESIS, FEVER COMPARISON: 08/13/2016 EXAM PARAMETERS: NUMBER OF VIEWS: One view. TECHNIQUE: Single frontal radiographic view of the chest acquired. RADIATION DOSE: NA LIMITATIONS: None. FINDINGS: LUNGS AND PLEURA: No opacities, masses or pneumothorax. No pleural effusion. MEDIASTINUM AND HILAR STRUCTURES: No masses. Contour normal. HEART AND VASCULAR STRUCTURES: Heart normal in size. Normal vasculature. BONES: No acute findings. HARDWARE: None in the chest. OTHER: No other significant finding. IMPRESSION: NO ACUTE RADIOGRAPHIC FINDING IN THE CHEST. NO SIGNIFICANT CHANGE FROM PRIOR STUDY. TECHNICAL DOCUMENTATION: JOB ID: [id number]
[2017-03-06] MEDS ORDERED: DOCUSATE SODIUM 100 MG CAPSULE PO PRN (09:33)
[2017-03-06] MEDS ORDERED: VANCOMYCIN HCL 0 MG in DEXTROSE 5%-WATER 250 ML IV NR (09:45)
[2017-03-06] MEDS ORDERED: APIXABAN 5 MG TABLET PO SCH (10:00)
[2017-03-06] MEDS: METOPROLOL TARTRATE 50 MG TABLET PO SCH ×2 (11:25→23:07)
[2017-03-06] MEDS: NORMAL SALINE 1000 ML 1,000 ML IV PRN (11:27)
[2017-03-06] MEDS: CEFEPIME 2 GM/D5W RTU 2 GM/50 ML RTUPB IV SCH ×2 (11:57→22:35)
[2017-03-06] MEDS: VANCOMYCIN HCL 750 MG in DEXTROSE 5%-WATER 250 ML IV SCH (14:13)
--- NOTE | 2017-03-06 16:14 | PDOC PROGRESS REPORT ---
Subjective Progress Note for:: 03/06/17 Subjective:: She reports she is feeling significantly better. Patient reports she was having a bit more cough at home prior to presentation. She denied any diarrhea. Patient denies chest pain, shortness of breath, abdominal pain, nausea, vomiting , fevers, chills, diarrhea, constipation, headache, new onset weakness. Patient does report she gets a little dizzy on standing. Physical Exam Vital Signs: Temp Pulse Resp BP Pulse Ox 97.8 F 79 16 121/54 L 96 03/06/17 12:15 03/06/17 12:15 03/06/17 12:15 03/06/17 12:15 03/06/17 12:15 Exam: General: Hard of hearing, awake alert and orientedx3, no acute respiratory distress HEENT: AT/NC, PERRL, EOMI, oropharynx is dry, pink, no scleral icterus, no conjunctival injection Neck: No JVD, trachea midline Chest: crackles RUL CV: Regular rate and rhythm, normal S1 and S2, no murmur, rub, or gallop Abdomen: Soft, nontender to palpation, nondistended, active bowel sounds; no rebound, rigidity, or guarding Extremities: No cyanosis, clubbing or edema Neuro: Cranial nerves II through XII are grossly intact without focal deficits; awake alert and oriented x3 Psych: Normal mood and affect Results Laboratory Results: 03/06/17 09:38 Troponin I < 0.012 Assessment & Plan - Diagnosis (1) Sepsis Qualifiers: Sepsis type: sepsis due to unspecified organism Qualified Code(s): A41.9 - Sepsis, unspecified organism Is this a current diagnosis for this admission?: Yes Plan: Neutropenic sepsis likely secondary to underlying pneumonia Place patient on vancomycin and cefepime pending blood, urine cultures, chest x- ray was unrevealing, but patient is quite neutropenic (2) Right upper lobe pneumonia Qualifiers: Pneumonia type: due to unspecified organism Qualified Code(s): J18.1 - Lobar pneumonia, unspecified organism Is this a current diagnosis for this admission?: Yes Plan: Patient sounds as though she has a right upper lobe pneumonia. She will placed on vancomycin and cefepime pending cultures. Patient is not requiring oxygen at this time (3) Neutropenia Qualifiers: Neutropenia type: secondary to cancer chemotherapy Qualified Code(s): D70.1 - Agranulocytosis secondary to cancer chemotherapy; T45.1X5A - Adverse effect of antineoplastic and immunosuppressive drugs, initial encounter; T45.1X5A - Adverse effect of antineoplastic and immunosuppressive drugs, initial encounter Is this a current diagnosis for this admission?: Yes Plan: Patient with neutropenia secondary to MDS as well as ongoing chemotherapy No Neupogen at this time secondary to MDS We will consult her oncologist when he returns on Wednesday (4) Pancytopenia Is this a current diagnosis for this admission?: Yes Plan: For her neutropenia, she has been placed on neutropenic precautions cultures are pending, and this will be monitored. For her thrombocytopenia, patient has been cautioned about falling, and risk of spontaneous bleeding. Her anticoagulation has been stopped. For her anemia, we will monitor and transfuse if patient drops below 8. (5) MDS (myelodysplastic syndrome) Is this a current diagnosis for this admission?: Yes Plan: We will consult oncology (6) Anticoagulated Is this a current diagnosis for this admission?: Yes Plan: Hold secondary to thrombus cytopenia (7) Atrial fibrillation Qualifiers: Atrial fibrillation type: paroxysmal Qualified Code(s): I48.0 - Paroxysmal atrial fibrillation Is this a current diagnosis for this admission?: Yes Plan: Continue metoprolol stop Eliquis secondary to thrombocytopenia (8) Dyslipidemia Is this a current diagnosis for this admission?: Yes (9) Essential hypertension Is this a current diagnosis for this admission?: Yes Plan: Currently mildly hypotensive secondary to dehydration (10) Obesity (BMI 30.0-34.9) Is this a current diagnosis for this admission?: Yes - Time Time Spent with patient: 35 or more minutes - Inpatient Certification Based on my medical assessment, after consideration of the patient's comorbidities, presenting symptoms, or acuity I expect that the services needed warrant INPATIENT care.: Yes I certify that my determination is in accordance with my understanding of Medicare's requirements for reasonable and necessary INPATIENT services [42 CFR 412.3e].: Yes Medical Necessity: Need For IV Fluids, Need for IV Antibiotics Post Hospital Care: D/C Chest Painting And Sealing Supervisor Documentation - Plan Summary Plan Summary: Total time spent with patient including patient education, physical examination , discussion with consultants, and formulation of plan was 60 minutes.
[2017-03-06] MEDS ORDERED: VANCOMYCIN HCL INJ 1000 MG VIAL ONE (23:27)
[2017-03-07] MEDS: VANCOMYCIN HCL 750 MG in DEXTROSE 5%-WATER 250 ML IV SCH ×2 (01:00→13:39)
[2017-03-07 05:20] LABS: HEMATOCRIT 23.7 % (36.0-47.0); HEMOGLOBIN 8.5 g/dL (12.0-15.5); HGB HCT DIFFERENCE 1.8; MEAN CORPUSCULAR HEMOGLOBIN 37.4 pg (27.0-33.4); MEAN CORPUSCULAR HGB CONC 35.9 g/dL (32.0-36.0); MEAN CORPUSCULAR VOLUME 104 fl (80-97); RED BLOOD COUNT 2.28 10^6/uL (3.72-5.28); RED CELL DISTRIBUTION WIDTH 16.1 % (11.5-14.0); WHITE BLOOD COUNT 2.2 10^3/uL (4.0-10.5)
[2017-03-07 05:25] LABS: ANION GAP 9 (5-19); BLOOD UREA NITROGEN 14 mg/dL (7-20); CALCIUM 8.3 mg/dL (8.4-10.2); CARBON DIOXIDE 25 mmol/L (22-30); CHLORIDE 108 mmol/L (98-107); CREATININE RESULT 0.65 mg/dL (0.52-1.25); GLUCOSE 102 mg/dL (75-110); POTASSIUM 3.9 mmol/L (3.6-5.0); SODIUM 142.4 mmol/L (137-145)
[2017-03-07 06:08] LABS: BASOPHILS % (MANUAL) 0 % (0-2); EOSINOPHILS % (MANUAL) 1 % (0-6); TOTAL CELLS COUNTED 100
[2017-03-07 06:12] LABS: ANISOCYTOSIS 1+; OVALOCYTES SLIGHT; POIKILOCYTOSIS SLIGHT; POLYCHROMASIA SLIGHT; TEAR DROP CELLS SLIGHT
[2017-03-07 06:13] LABS: TOXIC GRANULATION SLIGHT; TOXIC VACUOLATION PRESENT
[2017-03-07 06:17] LABS: LYMPHOCYTES % (MANUAL) 83 % (13-45)
[2017-03-07] MEDS: METOPROLOL TARTRATE 50 MG TABLET PO SCH ×2 (10:13→21:38)
[2017-03-07] MEDS: CEFEPIME 2 GM/D5W RTU 2 GM/50 ML RTUPB IV SCH ×2 (10:14→21:37)
--- NOTE | 2017-03-07 14:56 | PDOC PROGRESS REPORT ---
Subjective Progress Note for:: 03/07/17 Subjective:: She reports that she is having left maxillary pain and yellow sinus drainage. She does report that she is coughing more today than previous. Patient reports she is feeling significantly better. She is seen with her daughter at bedside. Nursing is also present. Patient reports she is feeling antsy and wants to go for a walk. Patient denies chest pain, shortness of breath, abdominal pain, nausea, vomiting , fevers, chills, diarrhea, constipation, headache, new onset weakness. Physical Exam Vital Signs: Temp Pulse Resp BP Pulse Ox 98.1 F 76 18 118/44 L 96 03/07/17 03:28 03/07/17 03:28 03/07/17 03:28 03/07/17 03:28 03/07/17 03:28 Intake & Output 03/06/17 03/07/17 03/08/17 06:59 06:59 06:59 Intake Total 2865 Output Total 900 Balance 1965 Exam: General: Hard of hearing, awake alert and oriented x3, no acute respiratory distress HEENT: AT/NC, PERRL, EOMI, oropharynx is moist, pink, no scleral icterus, no conjunctival injection Neck: No JVD, trachea midline Chest: Clear to auscultation bilaterally CV: Regular rate and rhythm, normal S1 and S2, no murmur, rub, or gallop Abdomen: Soft, nontender to palpation, nondistended, active bowel sounds; no rebound, rigidity, or guarding Extremities: No cyanosis, clubbing or edema Neuro: Cranial nerves II through XII are grossly intact without focal deficits; awake alert and oriented x3 Psych: Normal mood and affect Results Laboratory Results: 03/07/17 04:49 03/07/17 04:49 03/07/17 03/07/17 04:49 04:49 WBC 2.2 L RBC 2.28 L Hgb 8.5 L Hct 23.7 L MCV 104 H MCH 37.4 H MCHC 35.9 RDW 16.1 H Plt Count 59 L Seg Neutrophils % Not Reportable Lymphocytes % Not Reportable Monocytes % Not Reportable Eosinophils % Not Reportable Basophils % Not Reportable Absolute Neutrophils Not Reportable Absolute Lymphocytes Not Reportable Absolute Monocytes Not Reportable Absolute Eosinophils Not Reportable Absolute Basophils Not Reportable Sodium 142.4 Potassium 3.9 Chloride 108 H Carbon Dioxide 25 Anion Gap 9 BUN 14 Creatinine 0.65 Est GFR ( Amer) > 60 Est GFR (Non-Af Amer) > 60 Glucose 102 Calcium 8.3 L Magnesium 2.0 03/06/17 03/06/17 09:38 18:25 Troponin I < 0.012 < 0.012 Assessment & Plan - Diagnosis (1) Sepsis Qualifiers: Sepsis type: sepsis due to unspecified organism Qualified Code(s): A41.9 - Sepsis, unspecified organism Is this a current diagnosis for this admission?: Yes Plan: Neutropenic sepsis likely secondary to underlying pneumonia Place patient on vancomycin and cefepime pending blood, urine cultures, chest x- ray was unrevealing. Pending sputum culture (2) Right upper lobe pneumonia Qualifiers: Pneumonia type: due to unspecified organism Qualified Code(s): J18.1 - Lobar pneumonia, unspecified organism Is this a current diagnosis for this admission?: Yes Plan: Patient sounds as though she has a right upper lobe pneumonia. On vancomycin and cefepime pending cultures. Patient is not requiring oxygen at this time (3) Neutropenia Qualifiers: Neutropenia type: secondary to cancer chemotherapy Qualified Code(s): D70.1 - Agranulocytosis secondary to cancer chemotherapy; T45.1X5A - Adverse effect of antineoplastic and immunosuppressive drugs, initial encounter; T45.1X5A - Adverse effect of antineoplastic and immunosuppressive drugs, initial encounter Is this a current diagnosis for this admission?: Yes Plan: Patient with neutropenia secondary to MDS as well as ongoing chemotherapy No Neupogen at this time secondary to MDS We will consult her oncologist when he returns on Wednesday (4) Pancytopenia Is this a current diagnosis for this admission?: Yes Plan: For her neutropenia, she has been placed on neutropenic precautions cultures are pending, and this will be monitored. For her thrombocytopenia, patient has been cautioned about falling, and risk of spontaneous bleeding. Her anticoagulation has been stopped. For her anemia, we will monitor and transfuse if patient drops below 8. (5) MDS (myelodysplastic syndrome) Is this a current diagnosis for this admission?: Yes Plan: We will consult oncology (6) Anticoagulated Is this a current diagnosis for this admission?: Yes Plan: Hold secondary to thrombocytopenia (7) Atrial fibrillation Qualifiers: Atrial fibrillation type: paroxysmal Qualified Code(s): I48.0 - Paroxysmal atrial fibrillation Is this a current diagnosis for this admission?: Yes Plan: Continue metoprolol stop Eliquis secondary to thrombocytopenia (8) Dyslipidemia Is this a current diagnosis for this admission?: Yes (9) Essential hypertension Is this a current diagnosis for this admission?: Yes (10) Obesity (BMI 30.0-34.9) Is this a current diagnosis for this admission?: Yes - Time Time Spent with patient: 25-34 minutes Medications reviewed and adjusted accordingly: Yes
--- NOTE | 2017-03-07 16:54 | EKG REPORT ---
SEVERITY:- ABNORMAL ECG - SINUS RHYTHM LEFT VENTRICULAR HYPERTROPHY : Confirmed by: Adrianne Camacho MD 07-Mar-2017 16:53:48
[2017-03-07] MEDS: NORMAL SALINE 1000 ML 1,000 ML IV PRN (18:40)
[2017-03-07] MEDS: LORATADINE 10 MG TABLET PO SCH (21:37)
[2017-03-07] MEDS: FLUTICASONE NASAL SPRAY 50 MCG/SPRY 120 SPRAY/16 GM NASL SCH (21:38)
[2017-03-08] MEDS: VANCOMYCIN HCL 750 MG in DEXTROSE 5%-WATER 250 ML IV SCH ×2 (00:37→14:15)
--- NOTE | 2017-03-08 08:02 | EKG REPORT ---
SEVERITY:- ABNORMAL ECG - SINUS RHYTHM LEFT AXIS DEVIATION LEFT VENTRICULAR HYPERTROPHY CONSIDER ANTERIOR INFARCT : Confirmed by: Michael David MD 08-Mar-2017 08:01:48
[2017-03-08 08:39] LABS: HEMATOCRIT 24.7 % (36.0-47.0); HEMOGLOBIN 8.7 g/dL (12.0-15.5); HGB HCT DIFFERENCE 1.4; MEAN CORPUSCULAR HEMOGLOBIN 36.4 pg (27.0-33.4); MEAN CORPUSCULAR HGB CONC 35.1 g/dL (32.0-36.0); MEAN CORPUSCULAR VOLUME 104 fl (80-97); RED BLOOD COUNT 2.38 10^6/uL (3.72-5.28); RED CELL DISTRIBUTION WIDTH 16.1 % (11.5-14.0); WHITE BLOOD COUNT 2.5 10^3/uL (4.0-10.5)
[2017-03-08 08:56] LABS: ANION GAP 9 (5-19); BLOOD UREA NITROGEN 15 mg/dL (7-20); CALCIUM 8.4 mg/dL (8.4-10.2); CARBON DIOXIDE 27 mmol/L (22-30); CHLORIDE 107 mmol/L (98-107); CREATININE RESULT 0.55 mg/dL (0.52-1.25); GLUCOSE 93 mg/dL (75-110); POTASSIUM 4.3 mmol/L (3.6-5.0); SODIUM 142.8 mmol/L (137-145)
[2017-03-08 09:18] LABS: BASOPHILS % (MANUAL) 0 % (0-2); EOSINOPHILS % (MANUAL) 1 % (0-6); LYMPHOCYTES % (MANUAL) 84 % (13-45); TOTAL CELLS COUNTED 100
[2017-03-08 09:23] LABS: ANISOCYTOSIS 1+; OVALOCYTES 1+; POIKILOCYTOSIS 1+; POLYCHROMASIA 1+
[2017-03-08] MEDS: CEFEPIME 2 GM/D5W RTU 2 GM/50 ML RTUPB IV SCH ×2 (11:10→22:02)
[2017-03-08] MEDS: FLUTICASONE NASAL SPRAY 50 MCG/SPRY 120 SPRAY/16 GM NASL SCH ×2 (11:10→22:00)
[2017-03-08] MEDS: METOPROLOL TARTRATE 50 MG TABLET PO SCH ×2 (11:10→21:59)
[2017-03-08 14:11] LABS: PATH REVIEW PATHOLOGIST REVIEWED
[2017-03-08] MEDS ORDERED: VANCOMYCIN HCL 1,000 MG in DEXTROSE 5%-WATER 250 ML IV ONE (15:00)
--- NOTE | 2017-03-08 17:09 | PDOC PROGRESS REPORT ---
Subjective Progress Note for:: 03/08/17 Subjective:: Seen earlier today on morning rounds with daughter at bedside. She reports that her maxillary pain is improving. Patient denies chest pain, shortness of breath, abdominal pain, nausea, vomiting , fevers, chills, diarrhea, constipation, headache, new onset weakness. Physical Exam Vital Signs: Temp Pulse Resp BP Pulse Ox 98.2 F 76 16 115/45 L 98 03/08/17 12:14 03/08/17 14:00 03/08/17 12:14 03/08/17 12:14 03/08/17 12:14 Intake & Output 03/07/17 03/08/17 03/09/17 06:59 06:59 06:59 Intake Total 2865 3196 Output Total 900 1500 Balance 1965 1696 Exam: General: Hard of hearing, awake alert and oriented x3, no acute respiratory distress HEENT: AT/NC, PERRL, EOMI, oropharynx is moist, pink, no scleral icterus, no conjunctival injection Neck: No JVD, trachea midline Chest: Clear to auscultation bilaterally CV: Regular rate and rhythm, normal S1 and S2, no murmur, rub, or gallop Abdomen: Soft, nontender to palpation, nondistended, active bowel sounds; no rebound, rigidity, or guarding Extremities: No cyanosis, clubbing or edema Neuro: Cranial nerves II through XII are grossly intact without focal deficits; awake alert and oriented x3 Psych: Normal mood and affect Results Laboratory Results: 03/08/17 08:10 03/08/17 08:10 03/08/17 03/08/17 08:10 08:10 WBC 2.5 L RBC 2.38 L Hgb 8.7 L Hct 24.7 L MCV 104 H MCH 36.4 H MCHC 35.1 RDW 16.1 H Plt Count 66 L Seg Neutrophils % Not Reportable Lymphocytes % Not Reportable Monocytes % Not Reportable Eosinophils % Not Reportable Basophils % Not Reportable Absolute Neutrophils Not Reportable Absolute Lymphocytes Not Reportable Absolute Monocytes Not Reportable Absolute Eosinophils Not Reportable Absolute Basophils Not Reportable Sodium 142.8 Potassium 4.3 Chloride 107 Carbon Dioxide 27 Anion Gap 9 BUN 15 Creatinine 0.55 Est GFR ( Amer) > 60 Est GFR (Non-Af Amer) > 60 Glucose 93 Calcium 8.4 03/07/17 18:40 Sputum Gram Stain - Final 03/07/17 18:40 Sputum Sputum Culture - Final 03/06/17 03/06/17 09:38 18:25 Troponin I < 0.012 < 0.012 Assessment & Plan - Diagnosis (1) Sepsis Qualifiers: Sepsis type: sepsis due to unspecified organism Qualified Code(s): A41.9 - Sepsis, unspecified organism Is this a current diagnosis for this admission?: Yes Plan: Neutropenic sepsis likely secondary to underlying pneumonia Patient on vancomycin and cefepime pending blood, urine cultures, chest x-ray was unrevealing. Pending sputum culture Currently on day #2 of antibiotics. (2) Right upper lobe pneumonia Qualifiers: Pneumonia type: due to unspecified organism Qualified Code(s): J18.1 - Lobar pneumonia, unspecified organism Is this a current diagnosis for this admission?: Yes Plan: Patient sounds as though she has a right upper lobe pneumonia. On vancomycin and cefepime pending cultures. Patient is not requiring oxygen at this time (3) Neutropenia Qualifiers: Neutropenia type: secondary to cancer chemotherapy Qualified Code(s): D70.1 - Agranulocytosis secondary to cancer chemotherapy; T45.1X5A - Adverse effect of antineoplastic and immunosuppressive drugs, initial encounter; T45.1X5A - Adverse effect of antineoplastic and immunosuppressive drugs, initial encounter Is this a current diagnosis for this admission?: Yes Plan: Patient with neutropenia secondary to MDS as well as ongoing chemotherapy No Neupogen at this time secondary to MDS Pending oncology consult (4) Pancytopenia Is this a current diagnosis for this admission?: Yes Plan: For her neutropenia, she has been placed on neutropenic precautions cultures are pending, and this will be monitored. For her thrombocytopenia, patient has been cautioned about falling, and risk of spontaneous bleeding. Her anticoagulation has been stopped. For her anemia, we will monitor and transfuse if patient drops below 8. (5) MDS (myelodysplastic syndrome) Is this a current diagnosis for this admission?: Yes (6) Anticoagulated Is this a current diagnosis for this admission?: Yes Plan: Hold secondary to thrombocytopenia (7) Atrial fibrillation Qualifiers: Atrial fibrillation type: paroxysmal Qualified Code(s): I48.0 - Paroxysmal atrial fibrillation Is this a current diagnosis for this admission?: Yes Plan: Continue metoprolol stop Eliquis secondary to thrombocytopenia (8) Dyslipidemia Is this a current diagnosis for this admission?: Yes (9) Essential hypertension Is this a current diagnosis for this admission?: Yes (10) Obesity (BMI 30.0-34.9) Is this a current diagnosis for this admission?: Yes - Time Time Spent with patient: 25-34 minutes Medications reviewed and adjusted accordingly: Yes Anticipated discharge: Home with Homehealth Within: within 48 hours
[2017-03-08] MEDS: VANCOMYCIN HCL 1,000 MG in DEXTROSE 5%-WATER 250 ML IV SCH (18:36)
[2017-03-08] MEDS: LORATADINE 10 MG TABLET PO SCH (21:58)
[2017-03-08] MEDS ORDERED: VANCOMYCIN HCL 1,000 MG in DEXTROSE 5%-WATER 250 ML IV SCH (22:00)
[2017-03-09] MEDS: VANCOMYCIN HCL 1,000 MG in DEXTROSE 5%-WATER 250 ML IV SCH (02:10)
[2017-03-09 05:11] LABS: HEMOGLOBIN 8.3 g/dL (12.0-15.5); HGB HCT DIFFERENCE 0.9; MEAN CORPUSCULAR HEMOGLOBIN 35.6 pg (27.0-33.4); MEAN CORPUSCULAR HGB CONC 34.6 g/dL (32.0-36.0); MEAN CORPUSCULAR VOLUME 103 fl (80-97); RED BLOOD COUNT 2.33 10^6/uL (3.72-5.28); RED CELL DISTRIBUTION WIDTH 15.8 % (11.5-14.0); WHITE BLOOD COUNT 3.1 10^3/uL (4.0-10.5)
[2017-03-09] MEDS ORDERED: NORMAL SALINE 1000 ML 250 ML IV ONE (05:20)
[2017-03-09 05:22] LABS: ALANINE AMINOTRANSFERASE 27 U/L (9-52); ALKALINE PHOSPHATASE 59 U/L (38-126); ANION GAP 9 (5-19); ASPARTATE AMINO TRANSFERASE 21 U/L (14-36); BILIRUBIN,DIRECT 0.2 mg/dL (0.0-0.4); BILIRUBIN,TOTAL 0.3 mg/dL (0.2-1.3); BLOOD UREA NITROGEN 15 mg/dL (7-20); CALCIUM 8.5 mg/dL (8.4-10.2); CARBON DIOXIDE 26 mmol/L (22-30); CHLORIDE 108 mmol/L (98-107); CREATININE RESULT 0.55 mg/dL (0.52-1.25); GLUCOSE 97 mg/dL (75-110); POTASSIUM 4.1 mmol/L (3.6-5.0); SODIUM 142.6 mmol/L (137-145); TOTAL PROTEIN 5.7 g/dL (6.3-8.2)
[2017-03-09] MEDS ORDERED: METOPROLOL TARTRATE 50 MG TABLET ONE (05:25)
[2017-03-09] MEDS: METOPROLOL TARTRATE 50 MG TABLET PO SCH (05:27)
[2017-03-09 05:49] LABS: BASOPHILS % (MANUAL) 0 % (0-2); EOSINOPHILS % (MANUAL) 0 % (0-6); LYMPHOCYTES % (MANUAL) 86 % (13-45); TOTAL CELLS COUNTED 100
[2017-03-09 05:56] LABS: ANISOCYTOSIS SLIGHT; POIKILOCYTOSIS SLIGHT; POLYCHROMASIA SLIGHT
[2017-03-09 05:57] LABS: OVALOCYTES SLIGHT
[2017-03-09] MEDS ORDERED: NORMAL SALINE 250 ML IV ONE (06:15)
--- NOTE | 2017-03-09 08:09 | EKG REPORT ---
SEVERITY:- ABNORMAL ECG - ATRIAL FIBRILLATION LVH WITH SECONDARY REPOLARIZATION ABNORMALITY : Confirmed by: Michael David MD 09-Mar-2017 08:08:37
[2017-03-09] MEDS ORDERED: AMOXICILLIN TR/POT CLAVULANATE 500-125 MG TAB PO ONE (09:00)
[2017-03-09] MEDS ORDERED: METOPROLOL SUCCINATE 50 MG TAB.SR.24H PO ONE (10:00)
[2017-03-09] MEDS ORDERED: METOPROLOL TARTRATE 50 MG TABLET PO ONE (10:30)
[2017-03-09] MEDS: FLUTICASONE NASAL SPRAY 50 MCG/SPRY 120 SPRAY/16 GM NASL SCH ×2 (10:33→21:06)
[2017-03-09] MEDS: AMOXICILLIN TR/POT CLAVULANATE 500-125 MG TAB PO SCH ×2 (13:11→21:06)
--- NOTE | 2017-03-09 14:56 | PDOC PROGRESS REPORT ---
Subjective Progress Note for:: 03/09/17 Subjective:: Patient seen earlier today on morning rounds. Daughter present at bedside. Overnight, patient had run of A. fib with RVR and to the 140s. This improved with IV metoprolol and small fluid bolus. Patient reports that she has as needed diltiazem at home for instances like this. Patient denied any chest pain or associated shortness of breath with this episode. Patient denies chest pain, shortness of breath, abdominal pain, nausea, vomiting , fevers, chills, diarrhea, constipation, headache, new onset weakness. Physical Exam Vital Signs: Temp Pulse Resp BP Pulse Ox 98.2 F 74 18 121/52 L 99 03/09/17 11:16 03/09/17 11:16 03/09/17 11:16 03/09/17 11:16 03/09/17 11:16 Intake & Output 03/08/17 03/09/17 03/10/17 06:59 06:59 06:59 Intake Total 3196 1450 Output Total 1500 1800 Balance 1696 -350 Exam: General: Hard of hearing, awake alert and oriented x3, no acute respiratory distress HEENT: AT/NC, PERRL, EOMI, oropharynx is moist, pink, no scleral icterus, no conjunctival injection Neck: No JVD, trachea midline Chest: Clear to auscultation bilaterally CV: IRR, no murmur, rub, or gallop Abdomen: Soft, nontender to palpation, nondistended, active bowel sounds; no rebound, rigidity, or guarding Extremities: No cyanosis, clubbing or edema Neuro: Cranial nerves II through XII are grossly intact without focal deficits; awake alert and oriented x3 Psych: Normal mood and affect Results Laboratory Results: 03/09/17 04:42 03/09/17 04:42 03/09/17 03/09/17 04:42 04:42 WBC 3.1 L RBC 2.33 L Hgb 8.3 L Hct 24.0 L MCV 103 H MCH 35.6 H MCHC 34.6 RDW 15.8 H Plt Count 73 L Seg Neutrophils % Not Reportable Lymphocytes % Not Reportable Monocytes % Not Reportable Eosinophils % Not Reportable Basophils % Not Reportable Absolute Neutrophils Not Reportable Absolute Lymphocytes Not Reportable Absolute Monocytes Not Reportable Absolute Eosinophils Not Reportable Absolute Basophils Not Reportable Sodium 142.6 Potassium 4.1 Chloride 108 H Carbon Dioxide 26 Anion Gap 9 BUN 15 Creatinine 0.55 Est GFR ( Amer) > 60 Est GFR (Non-Af Amer) > 60 Glucose 97 Calcium 8.5 Total Bilirubin 0.3 AST 21 ALT 27 Alkaline Phosphatase 59 Total Protein 5.7 L Albumin 3.0 L 03/07/17 18:40 Sputum Gram Stain - Final 03/07/17 18:40 Sputum Sputum Culture - Final 03/06/17 03/06/17 09:38 18:25 Troponin I < 0.012 < 0.012 Assessment & Plan - Diagnosis (1) Sepsis Qualifiers: Sepsis type: sepsis due to unspecified organism Qualified Code(s): A41.9 - Sepsis, unspecified organism Is this a current diagnosis for this admission?: Yes Plan: Neutropenic sepsis likely secondary to underlying sinusitis and possible pneumonia Patient completed 2 days of cefepime and vancomycin. Will stop these and initiate patient on Augmentin. Patient failed Levaquin as an outpatient. Cultures are all currently negative (2) Sinusitis Qualifiers: Sinusitis location: maxillary Chronicity: acute Recurrence: not specified as recurrent Qualified Code(s): J01.00 - Acute maxillary sinusitis, unspecified Is this a current diagnosis for this admission?: Yes Plan: Patient has maxillary sinusitis bilaterally with facial pain, fever, and increased drainage. Continue patient on Claritin, Flonase, and has been transitioned to Augmentin for this. In light of patient's immune compromised status with her MDS, this is patient's likely source of infection. (3) Right upper lobe pneumonia Qualifiers: Pneumonia type: due to unspecified organism Qualified Code(s): J18.1 - Lobar pneumonia, unspecified organism Is this a current diagnosis for this admission?: Yes Plan: Initially on physical examination, patient had right upper lobe rhonchi. Currently patient's sputum is nonproductive and her chest x-ray has been nonrevealing. Patient could have an element of pneumonia/bronchitis from her sinusitis. However patient's primary source of infection appears to be sinusitis. (4) Neutropenia Qualifiers: Neutropenia type: secondary to cancer chemotherapy Qualified Code(s): D70.1 - Agranulocytosis secondary to cancer chemotherapy; T45.1X5A - Adverse effect of antineoplastic and immunosuppressive drugs, initial encounter; T45.1X5A - Adverse effect of antineoplastic and immunosuppressive drugs, initial encounter Is this a current diagnosis for this admission?: Yes Plan: Patient with neutropenia secondary to MDS as well as ongoing chemotherapy No Neupogen at this time secondary to MDS Pending oncology consult Continue neutropenic precautions (5) Pancytopenia Is this a current diagnosis for this admission?: Yes (6) MDS (myelodysplastic syndrome) Is this a current diagnosis for this admission?: Yes (7) Anticoagulated Is this a current diagnosis for this admission?: Yes (8) Atrial fibrillation Qualifiers: Atrial fibrillation type: paroxysmal Qualified Code(s): I48.0 - Paroxysmal atrial fibrillation Is this a current diagnosis for this admission?: Yes Plan: Have increased patient's metoprolol. Will use diltiazem if needed. stop Eliquis secondary to thrombocytopenia (9) Dyslipidemia Is this a current diagnosis for this admission?: Yes (10) Essential hypertension Is this a current diagnosis for this admission?: Yes (11) Obesity (BMI 30.0-34.9) Is this a current diagnosis for this admission?: Yes - Time Time Spent with patient: 25-34 minutes Medications reviewed and adjusted accordingly: Yes Anticipated discharge: Home Within: within 24 hours, within 48 hours
[2017-03-09] MEDS: METOPROLOL SUCCINATE 50 MG TAB.SR.24H PO SCH (21:05)
[2017-03-09] MEDS: LORATADINE 10 MG TABLET PO SCH (21:06)
[2017-03-10 05:08] LABS: HEMATOCRIT 25.6 % (36.0-47.0); HGB HCT DIFFERENCE 1.4; MEAN CORPUSCULAR HEMOGLOBIN 36.3 pg (27.0-33.4); MEAN CORPUSCULAR VOLUME 104 fl (80-97); RED BLOOD COUNT 2.47 10^6/uL (3.72-5.28); RED CELL DISTRIBUTION WIDTH 15.9 % (11.5-14.0); WHITE BLOOD COUNT 3.3 10^3/uL (4.0-10.5)
[2017-03-10 05:26] LABS: ANION GAP 8 (5-19); BLOOD UREA NITROGEN 19 mg/dL (7-20); CARBON DIOXIDE 29 mmol/L (22-30); CHLORIDE 107 mmol/L (98-107); CREATININE RESULT 0.58 mg/dL (0.52-1.25); GLUCOSE 103 mg/dL (75-110); POTASSIUM 4.4 mmol/L (3.6-5.0); SODIUM 144.1 mmol/L (137-145)
[2017-03-10 05:41] LABS: BAND NEUTROPHILS % (MANUAL) 2 % (3-5); BASOPHILS % (MANUAL) 0 % (0-2); EOSINOPHILS % (MANUAL) 0 % (0-6); LYMPHOCYTES % (MANUAL) 86 % (13-45); TOTAL CELLS COUNTED 100
[2017-03-10 05:45] LABS: ANISOCYTOSIS SLIGHT; BURR CELLS SLIGHT; OVALOCYTES SLIGHT; POIKILOCYTOSIS SLIGHT; POLYCHROMASIA SLIGHT; SCHISTOCYTES SLIGHT
[2017-03-10] MEDS: AMOXICILLIN TR/POT CLAVULANATE 500-125 MG TAB PO SCH (05:54)
--- NOTE | 2017-03-10 08:42 | PDOC CONSULTATION ---
Consultation Consult Date: 03/10/17 Attending physician:: WAGNER BURGER Consult reason:: Pancytopenia, sepsis, sinus infection History of Present Illness Admission Date/PCP: 03/06/17 09:31 BECCA MARIA Patient complains of: Weakness, sepsis, fevers History of Present Illness: 76-year-old female with known history of MDS, recently has been started on Vidaza, as an outpatient we noted that she had fever initiated after giving first cycle of chemotherapy, we started her on Levaquin but the fevers persisted and patient got more lethargic having shaking chills, became weaker, was brought in and she was tachycardic and hypotensive, was felt to be in severe sepsis, upon admission she was found to have severe sinusitis as the probable source of the sepsis, and she was treated with broad-spectrum antibiotics, cultures over 48 hours were negative so recently patient was transitioned to oral Augmentin. She is doing much better now. Past Medical History Cardiac Medical History: Reports: Hyperlipidema, Hypertension Musculoskeltal Medical History: Reports: Arthritis Social History Information Source: Patient Lives with: Family Smoking Status: Never Smoker Frequency of Alcohol Use: None Hx Recreational Drug Use: No Drugs: None Hx Prescription Drug Abuse: No - Advance Directive Resuscitation Status: Full Code Family History Family History: CAD - Extensive family history of coronary artery disease and pacemaker placement in multiple family members Parental Family History Reviewed: Yes Children Family History Reviewed: Yes Sibling(s) Family History Reviewed.: Yes Medication/Allergy Home Medications: Apixaban [Eliquis] 5 mg PO Q12 03/06/17 Aspirin [Ecotrin 81 mg EC Tablet] 81 mg PO DAILY 03/06/17 Atorvastatin Calcium [Lipitor 40 mg Tablet] 40 mg PO DAILY 03/06/17 Diltiazem HCl [Cardizem 60 mg Tablet] 60 mg PO DAILYP PRN 03/06/17 Docusate Sodium [Colace 100 mg Capsule] 100 mg PO DAILYP PRN 03/06/17 Lisinopril [Prinivil] 20 mg PO DAILY 03/06/17 Metoprolol Tartrate [Lopressor 50 mg Tablet] 50 mg PO Q12 03/06/17 Nitroglycerin [Nitrostat] 0.4 mg PO Q5MP PRN 03/06/17 Allergies/Adverse Reactions: No Known Allergies Allergy (Verified 08/31/16 00:40) Review of Systems Constitutional: ABSENT: chills, fever(s), headache(s), weight gain, weight loss Eyes: ABSENT: visual disturbances Ears: ABSENT: hearing changes Cardiovascular: ABSENT: chest pain, dyspnea on exertion, edema, orthropnea, palpitations Respiratory: ABSENT: cough, hemoptysis Gastrointestinal: ABSENT: abdominal pain, constipation, diarrhea, hematemesis, hematochezia, nausea, vomiting Genitourinary: ABSENT: dysuria, hematuria Musculoskeletal: ABSENT: joint swelling Integumentary: ABSENT: rash, wounds Neurological: ABSENT: abnormal gait, abnormal speech, confusion, dizziness, focal weakness, syncope Psychiatric: ABSENT: anxiety, depression, homidical ideation, suicidal ideation Endocrine: ABSENT: cold intolerance, heat intolerance, polydipsia, polyuria Hematologic/Lymphatic: ABSENT: easy bleeding, easy bruising Physical Exam Vital Signs: Temp Pulse Resp BP Pulse Ox 98.1 F 74 16 124/61 98 03/10/17 04:22 03/10/17 04:22 03/10/17 04:22 03/10/17 04:22 03/10/17 04:22 Intake & Output 03/09/17 03/10/17 03/11/17 06:59 06:59 06:59 Intake Total 1450 769 Output Total 1800 900 Balance -350 -131 Weight 70.1 kg General appearance: PRESENT: no acute distress, well-developed, well-nourished Head exam: PRESENT: atraumatic, normocephalic Eye exam: PRESENT: conjunctiva pink, EOMI, PERRLA. ABSENT: scleral icterus Ear exam: PRESENT: normal external ear exam Mouth exam: PRESENT: moist, tongue midline Neck exam: ABSENT: carotid bruit, JVD, lymphadenopathy, thyromegaly Respiratory exam: PRESENT: clear to auscultation chapo. ABSENT: rales, rhonchi, wheezes Cardiovascular exam: PRESENT: RRR. ABSENT: diastolic murmur, rubs, systolic murmur Pulses: PRESENT: normal dorsalis pedis pul Vascular exam: PRESENT: normal capillary refill GI/Abdominal exam: PRESENT: normal bowel sounds, soft. ABSENT: distended, guarding, mass, organolmegaly, rebound, tenderness Rectal exam: PRESENT: deferred Extremities exam: PRESENT: full ROM. ABSENT: calf tenderness, clubbing, pedal edema Neurological exam: PRESENT: alert, awake, oriented to person, oriented to place , oriented to time, oriented to situation, CN II-XII grossly intact. ABSENT: motor sensory deficit Psychiatric exam: PRESENT: appropriate affect, normal mood. ABSENT: homicidal ideation, suicidal ideation Skin exam: PRESENT: dry, intact, warm. ABSENT: cyanosis, rash Results Laboratory Results: 03/10/17 04:34 03/10/17 04:34 03/10/17 03/10/17 04:34 04:34 WBC 3.3 L RBC 2.47 L Hgb 9.0 L Hct 25.6 L MCV 104 H MCH 36.3 H MCHC 35.0 RDW 15.9 H Plt Count 84 L Seg Neutrophils % Not Reportable Lymphocytes % Not Reportable Monocytes % Not Reportable Eosinophils % Not Reportable Basophils % Not Reportable Absolute Neutrophils Not Reportable Absolute Lymphocytes Not Reportable Absolute Monocytes Not Reportable Absolute Eosinophils Not Reportable Absolute Basophils Not Reportable Sodium 144.1 Potassium 4.4 Chloride 107 Carbon Dioxide 29 Anion Gap 8 BUN 19 Creatinine 0.58 Est GFR ( Amer) > 60 Est GFR (Non-Af Amer) > 60 Glucose 103 Calcium 9.0 03/06/17 03/06/17 09:38 18:25 Troponin I < 0.012 < 0.012 Assessment & Plan - Diagnosis (1) Pancytopenia Is this a current diagnosis for this admission?: Yes Plan: Related to MDS, hemoglobin is improved to the 9 range, no need for transfusion, okay for DC home today. (2) Sepsis Qualifiers: Sepsis type: sepsis due to unspecified organism Qualified Code(s): A41.9 - Sepsis, unspecified organism Is this a current diagnosis for this admission?: Yes Plan: Probable source is the severe sinusitis, patient transition to Augmentin will discharge home with this for a 10 day course. (3) MDS (myelodysplastic syndrome) Is this a current diagnosis for this admission?: Yes Plan: Pancytopenia due to MDS as well as chemotherapy-induced, will follow this up as an outpatient. We will be holding treatment next week. - Time Time Spent: Greater than 70 Minutes Critical Time spent with patient: 35 or more minutes - Inpatient Certification Based on my medical assessment, after consideration of the patient's comorbidities, presenting symptoms, or acuity I expect that the services needed warrant INPATIENT care.: Yes I certify that my determination is in accordance with my understanding of Medicare's requirements for reasonable and necessary INPATIENT services [42 CFR 412.3e].: Yes
[2017-03-10 08:56] VITALS: BP 128/59
[2017-03-10] MEDS: METOPROLOL SUCCINATE 50 MG TAB.SR.24H PO SCH (09:33)
[2017-03-10] MEDS: FLUTICASONE NASAL SPRAY 50 MCG/SPRY 120 SPRAY/16 GM NASL SCH (09:33)
--- NOTE | 2017-03-10 10:20 | PDOC DISCHARGE SUMMARY ---
General - Admit/Disc Date/PCP Admission Date/Primary Care Provider: 03/06/17 09:31 BECCA MARIA Oncologist: Dr. Rodriguez Discharge Date: 03/10/17 - Discharge Diagnosis (1) Sinusitis Is this a current diagnosis for this admission?: Yes (2) MDS (myelodysplastic syndrome) Is this a current diagnosis for this admission?: Yes Summary: She will follow-up with Dr. Rodriguez (3) Neutropenia Is this a current diagnosis for this admission?: Yes Summary: Secondary to MDS. This will be a chronic problem for the patient. (4) Pancytopenia Is this a current diagnosis for this admission?: Yes Summary: Secondary to MDS (5) Atrial fibrillation Is this a current diagnosis for this admission?: Yes Summary: Currently in a sinus rhythm and rate controlled. Continue Eliquis for anticoagulation. (6) Essential hypertension Is this a current diagnosis for this admission?: Yes Summary: Stable. Her metoprolol was increased and her Cardizem and lisinopril stopped. Currently her blood pressure and heart rate are stable. (7) Dyslipidemia Is this a current diagnosis for this admission?: Yes Summary: Stable (8) Anticoagulated Is this a current diagnosis for this admission?: Yes Summary: Secondary to atrial fibrillation. (9) Obesity (BMI 30.0-34.9) Is this a current diagnosis for this admission?: Yes Summary: Dietary discretion is advised however she does need to eat a good diet. (10) Right upper lobe pneumonia Is this a current diagnosis for this admission?: Yes Summary: Do not believe she had pneumonia. This is been ruled out (11) Sepsis Is this a current diagnosis for this admission?: Yes Summary: After review of her medical record I do not believe the patient was septic. She had no fever or tachycardia. She was somewhat tachypneic. She has chronic pancytopenia. She had no organ dysfunction or encephalopathy. I believe that sepsis was ruled out. She did have evidence of an infection and had sinusitis. - Additional Information Resuscitation Status: Full Code Discharge Diet: As Tolerated Discharge Activity: Activity As Tolerated, Balance Activity w/Rest, Slowly Increase Activity Home Medications: Apixaban [Eliquis] 5 mg PO Q12 03/06/17 Aspirin [Ecotrin 81 mg EC Tablet] 81 mg PO DAILY 03/06/17 Atorvastatin Calcium [Lipitor 40 mg Tablet] 40 mg PO DAILY 03/06/17 Docusate Sodium [Colace 100 mg Capsule] 100 mg PO DAILYP PRN 03/06/17 Nitroglycerin [Nitrostat] 0.4 mg PO Q5MP PRN 03/06/17 Amox Tr/Potassium Clavulanate [Augmentin "500" Tablet] 1 tab PO Q8 #30 tablet 03/10/17 Fluticasone Propionate [Flonase Nasal [place] 50 Mcg/[place] 16 gm] 2 spray NASL Q12 #1 spray.pump 03/10/17 Loratadine [Claritin 10 mg Tablet] 10 mg PO QHS #30 tablet 03/10/17 Metoprolol Succinate [Toprol Xl 50 mg Tab.sr] 100 mg PO Q12 #120 tab.sr.24h 04/16 History of Present Illness History of Present Illness: PHOEBE SOSA is a 76 year old female who was sent to the emergency room by her oncologist as she had been running a low-grade fever at home with a T- max of 100.5. Hospital Course Hospital Course: She was admitted to the hospital and initially started on parenteral antibiotics. There were some concerns the patient may have an underlying pneumonia and septic picture however upon review of the medical record I do not believe this to be the case. She was found to have evidence of sinusitis with purulent sinus drainage. She has been successfully transitioned over to p.o. Augmentin at the time of discharge and is feeling much better. She was seen by her primary oncologist on the day of discharge she feels as if she is stable to be discharged home. Due to her underlying MDS the patient will always be neutropenic. We went over some precautions she can take at home to help prevent infection. She will follow-up with her oncologist office and keep her regularly scheduled appointment with her primary care provider. Of note her blood pressure medications were adjusted during this hospitalization and she is stable on the day of discharge. Physical Exam Vital Signs: Temp Pulse Resp BP Pulse Ox 97.6 F 67 18 128/59 H 97 03/10/17 07:13 03/10/17 07:13 03/10/17 07:13 03/10/17 07:13 03/10/17 07:13 Intake & Output 03/09/17 03/10/17 03/11/17 06:59 06:59 06:59 Intake Total 1450 769 Output Total 1800 900 Balance -350 -131 Weight 70.1 kg General appearance: PRESENT: no acute distress, well-developed, well-nourished Head exam: PRESENT: atraumatic, normocephalic Eye exam: PRESENT: conjunctiva pink, EOMI, PERRLA. ABSENT: scleral icterus Mouth exam: PRESENT: moist, tongue midline Respiratory exam: PRESENT: clear to auscultation chapo. ABSENT: rales, rhonchi, wheezes Cardiovascular exam: PRESENT: RRR. ABSENT: diastolic murmur, rubs, systolic murmur GI/Abdominal exam: PRESENT: normal bowel sounds, soft. ABSENT: distended, guarding, mass, organolmegaly, rebound, tenderness Rectal exam: PRESENT: deferred Extremities exam: PRESENT: full ROM. ABSENT: calf tenderness, clubbing, pedal edema Musculoskeletal exam: PRESENT: ambulatory Neurological exam: PRESENT: alert, awake, oriented to person, oriented to place , oriented to time, oriented to situation, CN II-XII grossly intact. ABSENT: motor sensory deficit Psychiatric exam: PRESENT: appropriate affect, normal mood. ABSENT: homicidal ideation, suicidal ideation Skin exam: PRESENT: dry, intact, warm. ABSENT: cyanosis, rash Results Laboratory Results: 03/10/17 04:34 03/10/17 04:34 03/10/17 03/10/17 04:34 04:34 WBC 3.3 L RBC 2.47 L Hgb 9.0 L Hct 25.6 L MCV 104 H MCH 36.3 H MCHC 35.0 RDW 15.9 H Plt Count 84 L Seg Neutrophils % Not Reportable Lymphocytes % Not Reportable Monocytes % Not Reportable Eosinophils % Not Reportable Basophils % Not Reportable Absolute Neutrophils Not Reportable Absolute Lymphocytes Not Reportable Absolute Monocytes Not Reportable Absolute Eosinophils Not Reportable Absolute Basophils Not Reportable Sodium 144.1 Potassium 4.4 Chloride 107 Carbon Dioxide 29 Anion Gap 8 BUN 19 Creatinine 0.58 Est GFR ( Amer) > 60 Est GFR (Non-Af Amer) > 60 Glucose 103 Calcium 9.0 03/06/17 03/06/17 09:38 18:25 Troponin I < 0.012 < 0.012 Qualifiers PATEINT BEING DISCHARGED WITH ANY OF THE FOLLOWING DIAGNOSIS?: No Plan Time Spent: Greater than 30 Minutes
== END 2017-03-10 12:35 | disposition home or self-care (01) | DRG 153 ==
LOC: ER 02:16 → EH 05:36 → UNDOADMOB 05:36 → EH 07:13 → 3W 07:13 → OBSVTOIN 09:31
PROVIDERS: ADMIT Family Medicine; ATTEND Family Medicine
DX: J01.00 Acute maxillary sinusitis, unspecified (principal); D70.1 Agranulocytosis secondary to cancer chemotherapy; D46.9 Myelodysplastic syndrome, unspecified; I48.0 Paroxysmal atrial fibrillation; R42 Dizziness and giddiness; I10 Essential (primary) hypertension; E78.5 Hyperlipidemia, unspecified; E66.9 Obesity, unspecified; T45.1X5A Adverse effect of antineoplastic and immunosuppressive drugs, initial encounter; Z79.01 Long term (current) use of anticoagulants; Z79.899 Other long term (current) drug therapy; Z79.82 Long term (current) use of aspirin; Z68.28 Body mass index [BMI] 28.0-28.9, adult
CPT/HCPCS: 36415; 71010; 80048; 80053; 80202; 81001; 82550; 82553; 83615; 83735; 84443; 84484; 85025; 87040; 87070; 87086; 87205; 87804; 93005; 93010; 99285; J0692; J3370; J3490; J7030; J7050; J7060

== ENCOUNTER 2017-03-24 20:24 | Emergency (ER) | payer MEDICARE, OTHER ==
--- NOTE | 2017-03-24 22:37 | ER Document Report ---
ED Medical Screen (RME) - General Chief Complaint: Dizziness Stated Complaint: CHEMO PT DIZZINESS NAUSEA Time Seen by Provider: 03/24/17 22:31 Notes: patient is a 76 year old female with MDS and neutropenia who presents to the ED complaining of nausea and dizzyness today after receiving chemo and blood transfusion. She had a Hgb of 7.8 on 03/22 and received 1u PRBC's on 03/23 around 10pm. Chemo around 4pm, admits to chills, lightheaded, and nauseous with palpitations lasting less then a minute primary oncologist is José Miguel PMH: jeovany, recent admission for ?sepsis r/o to be sinusitis on 03/06 TRAVEL OUTSIDE OF THE [place] IN LAST 30 DAYS: No - Related Data Allergies/Adverse Reactions: No Known Allergies Allergy (Verified 08/31/16 00:40) Past Medical History - Social History Chew tobacco use (# tins/day): No Frequency of alcohol use: None Drug Abuse: None - Past Medical History Cardiac Medical History: Reports: Hx Hypercholesterolemia, Hx Hypertension Renal/ Medical History: Denies: Hx Peritoneal Dialysis Musculoskeltal Medical History: Reports Hx Arthritis Past Surgical History: Reports: Hx Oral Surgery - Immunizations Immunizations up to date: Yes Hx Diphtheria, Pertussis, Tetanus Vaccination: Yes History of Influenza Vaccine for 02/2017 - 07/2017 Season: Yes Physical Exam - Vital signs Vitals: Temp Pulse Resp BP Pulse Ox 98.4 F 60 18 132/93 H 96 03/24/17 20:37 03/24/17 20:37 03/24/17 20:37 03/24/17 20:37 03/24/17 20:37 - General General appearance: Appears well, Alert In distress: None - Respiratory Respiratory status: No respiratory distress Chest status: Nontender Breath sounds: Normal Chest palpation: Normal - Cardiovascular Rhythm: Regular Heart sounds: Normal auscultation, S1 appreciated, S2 appreciated Gallop: None auscultated Course - Vital Signs Vital signs: Temp Pulse Resp BP Pulse Ox 98.4 F 60 18 132/93 H 96 03/24/17 20:37 03/24/17 20:37 03/24/17 20:37 03/24/17 20:37 03/24/17 20:37
[2017-03-24 23:42] LABS: ALANINE AMINOTRANSFERASE 31 U/L (9-52); ALBUMIN 3.6 g/dL (3.5-5.0); ALKALINE PHOSPHATASE 61 U/L (38-126); ANION GAP 9 (5-19); ASPARTATE AMINO TRANSFERASE 22 U/L (14-36); BILIRUBIN,DIRECT 0.2 mg/dL (0.0-0.4); BILIRUBIN,TOTAL 0.6 mg/dL (0.2-1.3); BLOOD UREA NITROGEN 14 mg/dL (7-20); CALCIUM 8.9 mg/dL (8.4-10.2); CARBON DIOXIDE 26 mmol/L (22-30); CHLORIDE 106 mmol/L (98-107); CREATININE RESULT 0.63 mg/dL (0.52-1.25); GLUCOSE 143 mg/dL (75-110); POTASSIUM 4.5 mmol/L (3.6-5.0); SODIUM 140.7 mmol/L (137-145); TOTAL PROTEIN 6.2 g/dL (6.3-8.2)
[2017-03-24 23:55] LABS: HGB HCT DIFFERENCE 1.7
[2017-03-24 23:56] LABS: HEMATOCRIT 28.6 % (36.0-47.0); HEMOGLOBIN 10.1 g/dL (12.0-15.5); MEAN CORPUSCULAR HEMOGLOBIN 36.7 pg (27.0-33.4); MEAN CORPUSCULAR HGB CONC 35.4 g/dL (32.0-36.0); MEAN CORPUSCULAR VOLUME 104 fl (80-97); RED BLOOD COUNT 2.76 10^6/uL (3.72-5.28); RED CELL DISTRIBUTION WIDTH 16.7 % (11.5-14.0); WHITE BLOOD COUNT 2.5 10^3/uL (4.0-10.5)
[2017-03-25 00:04] LABS: BAND NEUTROPHILS % (MANUAL) 1 % (3-5); BASOPHILS % (MANUAL) 0 % (0-2); EOSINOPHILS % (MANUAL) 0 % (0-6); LYMPHOCYTES % (MANUAL) 63 % (13-45); TOTAL CELLS COUNTED 100
[2017-03-25 00:11] LABS: ANISOCYTOSIS 1+; OVALOCYTES SLIGHT; POIKILOCYTOSIS SLIGHT; POLYCHROMASIA SLIGHT; TOXIC GRANULATION SLIGHT; TOXIC VACUOLATION PRESENT
[2017-03-25 00:12] LABS: TEAR DROP CELLS SLIGHT
--- NOTE | 2017-03-25 00:14 | RADIOLOGY REPORT (SQ) ---
EXAM DESCRIPTION: CHEST PA/LAT COMPLETED DATE/TIME: 03/24/2017 11:28 pm REASON FOR STUDY: palpitations, cough COMPARISON: None. EXAM PARAMETERS: NUMBER OF VIEWS: two views TECHNIQUE: Digital Frontal and Lateral radiographic views of the chest acquired. RADIATION DOSE: NA LIMITATIONS: none FINDINGS: LUNGS AND PLEURA: No opacities, masses or pneumothorax. No pleural effusion. MEDIASTINUM AND HILAR STRUCTURES: No masses or contour abnormalities. HEART AND VASCULAR STRUCTURES: Heart normal size. No evidence for failure. Atherosclerosis. BONES: Moderate disc desiccation. HARDWARE: None in the chest. OTHER: No other significant finding. IMPRESSION: NO SIGNIFICANT RADIOGRAPHIC FINDING IN THE CHEST. TECHNICAL DOCUMENTATION: JOB ID: [id number] [employer]- All Rights Reserved
--- NOTE | 2017-03-25 01:04 | ER Document Report ---
ED General - General Chief Complaint: Dizziness Stated Complaint: CHEMO PT DIZZINESS NAUSEA Time Seen by Provider: 03/24/17 22:31 Notes: The patient is a 76-year-old female, past medical history A. fib, hypertension, anemia, myelodysplastic syndrome, presents with 2 minutes of feeling her heart racing with a pulse of 139 irregular and feeling slightly lightheaded. This resolved without any intervention. She took her evening dose of metoprolol just prior to arrival and is currently asymptomatic. She is receiving 5 doses of chemo this week and will not receive any more chemo for the next 3 weeks. She also received a blood transfusion for a hemoglobin of 7.8 yesterday. Patient is currently asymptomatic at this time. She was taken off Eliquis due to her anemia. Patient denies chest pain, shortness of breath, cough, fevers, vomiting, rash, back pain, leg swelling, numbness, tingling or abdominal pain. TRAVEL OUTSIDE OF THE [place] IN LAST 30 DAYS: No - Related Data Allergies/Adverse Reactions: No Known Allergies Allergy (Verified 08/31/16 00:40) Past Medical History - General Information source: Patient - Social History Smoking Status: Never Smoker Chew tobacco use (# tins/day): No Frequency of alcohol use: None Drug Abuse: None Family History: CAD - Extensive family history of coronary artery disease and pacemaker placement in multiple family members Patient has suicidal ideation: No Patient has homicidal ideation: No - Past Medical History Cardiac Medical History: Reports: Hx Hypercholesterolemia, Hx Hypertension Renal/ Medical History: Denies: Hx Peritoneal Dialysis Musculoskeltal Medical History: Reports Hx Arthritis Past Surgical History: Reports: Hx Oral Surgery - Immunizations Immunizations up to date: Yes Hx Diphtheria, Pertussis, Tetanus Vaccination: Yes Hx Pneumococcal Vaccination: 02/29/16 Review of Systems - Review of Systems Notes: REVIEW OF SYSTEMS: CONSTITUTIONAL: -fevers, -chills EENT: -eye pain, -difficulty swallowing, -nasal congestion CARDIOVASCULAR: +palpitations, -chest pain, -syncope. RESPIRATORY: -cough, -SOB GASTROINTESTINAL: -abdominal pain, +nausea, -vomiting, -diarrhea GENITOURINARY: -dysuria, -hematuria MUSCULOSKELETAL: -back pain, -neck pain SKIN: -rash or skin lesions. HEMATOLOGIC: -easy bruising or bleeding. LYMPHATIC: -swollen, enlarged glands. NEUROLOGICAL: -altered mental status or loss of consciousness, -headache, - neurologic symptoms PSYCHIATRIC: -anxiety, -depression. ALL OTHER SYSTEMS REVIEWED AND NEGATIVE. Physical Exam - Vital signs Vitals: Temp Pulse Resp BP Pulse Ox 98.4 F 60 18 132/93 H 96 03/24/17 20:37 03/24/17 20:37 03/24/17 20:37 03/24/17 20:37 03/24/17 20:37 - Notes Notes: PHYSICAL EXAMINATION: GENERAL: Well-appearing, well-nourished and in no acute distress. HEAD: Atraumatic, normocephalic. EYES: Pupils equal round and reactive to light, extraocular movements intact, sclera anicteric, conjunctiva are normal. ENT: nares patent, oropharynx clear without exudates. Moist mucous membranes. NECK: Normal range of motion, supple without lymphadenopathy LUNGS: Breath sounds clear to auscultation bilaterally and equal. No wheezes rales or rhonchi. HEART: Regular rate and rhythm without murmurs ABDOMEN: Soft, nontender, normoactive bowel sounds. No guarding, no rebound. No masses appreciated. EXTREMITIES: Normal range of motion, no pitting or edema. No cyanosis. NEUROLOGICAL: Cranial nerves grossly intact. Normal speech, normal gait. Normal sensory and motor exams. PSYCH: Normal mood, normal affect. SKIN: Warm, Dry, normal turgor, no rashes or lesions noted. Course - Re-evaluation Re-evalutation: Patient appears very well. On arrival to the ER, her heart rate is 60 and blood pressure is 132/93. She is completely asymptomatic. She is not anemic and her total neutrophils is 0.6 without a fever. Based on her symptoms, suspect a brief episode of A. fib with RVR that quickly resolved. She follows with Dr. Hodge and takes metoprolol twice daily. She has chemotherapy tomorrow and the next day. Patient given very strict return precautions and she understands. - Vital Signs Vital signs: Temp Pulse Resp BP Pulse Ox 98.4 F 60 18 132/93 H 96 03/24/17 20:37 03/24/17 20:37 03/24/17 20:37 03/24/17 20:37 03/24/17 20:37 - Laboratory Result Diagrams: 03/24/17 23:10 10/25/17 23:10 Laboratory results interpreted by me: 03/24/17 03/24/17 23:10 23:10 WBC 2.5 L RBC 2.76 L Hgb 10.1 L Hct 28.6 L MCV 104 H MCH 36.7 H RDW 16.7 H Plt Count 72 L Seg Neuts % (Manual) 21 L Band Neutrophils % 1 L Lymphocytes % (Manual) 63 H Monocytes % (Manual) 15 H Abs Neuts (Manual) 0.6 L Glucose 143 H Total Protein 6.2 L - Diagnostic Test Radiology reviewed: Image reviewed, Reports reviewed Radiology results interpreted by me: CXR: NAD - EKG Interpretation by Me EKG shows normal: Sinus rhythm, [place], Intervals, QRS Complexes Rate: Normal Additional EKG results interpreted by me: No STEMI. Discharge - Discharge Clinical Impression: Palpitations Condition: Stable Disposition: HOME, SELF-CARE Additional Instructions: Palpitations (Irregular/Rapid Heartrate) Irregular or rapid heartbeat is called "palpitation." To diagnose the cause of palpitation, we have to "catch it in the act" with an EKG. Sinus Tachycardia: This is a rapid (but NORMAL) rhythm that can be due to fever, pain, anxiety, lack of sleep, over-exertion, or drugs. Cold medications, caffeine, and diet pills are particularly likely to cause tachycardia. Usually , all that's required is rest, reassurance, and avoiding caffeine, alcohol, nicotine, and unnecessary medicines. Paroxysmal Atrial Tachycardia (PAT): This abnormally rapid heartbeat is caused by a "short circuit" in the electrical system of the heart. It is not dangerous, unless other heart disease is present. These attacks of PAT may occur occasionally for years. Medication is available for treatment. Paroxysmal Atrial Fibrillation or Atrial Flutter: This is irregular electrical activity in the upper heart chamber. These abnormal rhythms often occur with valve disease or in hearts damaged by hardening of the arteries. These rhythms usually require further testing, for example a cardiac echo. Premature Beats: Extra beats occur more commonly after caffeine, nicotine , alcohol, cold pills, diet pills. Emotional stress or fatigue also provoke them. Extra beats are only dangerous when heart disease is present. They usually need no treatment. If they're frequent, or if evidence of heart disease develops, medication can be given to suppress them. If we were unable to "catch" the palpitations on EKG, you should try to get an EKG immediately if the symptoms begin again. Contact the physician at once if you develop persistent lightheadedness, shortness of breath, chest pain , or swelling of the ankles. Referrals: DEBORAH HODGE MD [EMERITUS] - Follow up as needed RAKAN HUTTON MD [ACTIVE STAFF] - Follow up as needed
[2017-03-25 02:49] VITALS: BP 102/74
--- NOTE | 2017-03-25 09:06 | EKG REPORT ---
SEVERITY:- ABNORMAL ECG - SINUS RHYTHM LEFT VENTRICULAR HYPERTROPHY BORDERLINE T ABNORMALITIES, INFERIOR LEADS : Confirmed by: Jeannine Sadler 25-Mar-2017 09:05:41
== END 2017-03-25 02:15 | disposition home or self-care (01) ==
LOC: ER 20:24
DX: R00.2 Palpitations (principal); R42 Dizziness and giddiness; R11.0 Nausea; D64.9 Anemia, unspecified
CPT/HCPCS: 36415; 71020; 80053; 85025; 93005; 93010; 99284

== ENCOUNTER 2017-04-25 05:31 | Emergency (ER) | payer MEDICARE, OTHER ==
[2017-04-25] MEDS ORDERED: NORMAL SALINE 1000 ML 1,000 ML IV ONE (06:03)
[2017-04-25 06:19] LABS: HEMATOCRIT 28.2 % (36.0-47.0); HGB HCT DIFFERENCE 1.8; MEAN CORPUSCULAR HEMOGLOBIN 36.5 pg (27.0-33.4); MEAN CORPUSCULAR HGB CONC 35.5 g/dL (32.0-36.0); RED BLOOD COUNT 2.74 10^6/uL (3.72-5.28); WHITE BLOOD COUNT 3.5 10^3/uL (4.0-10.5)
--- NOTE | 2017-04-25 06:22 | ER Document Report ---
ED Cardiac - General Chief Complaint: Palpitations Stated Complaint: WEAKNESS,HEART PROBLEMS,SHAKING Time Seen by Provider: 04/25/17 06:02 Notes: The patient is a 76-year-old female, past medical history A. fib, myelodysplastic syndrome (last chemo 3 days ago and follows with Dr. Rodriguez), hypertension, presents with 5 hours of feeling like her heart is racing and then feeling near syncopal. She is taking her 100 mg metoprolol twice daily and took it last night at 8 PM. She takes a baby aspirin and is off Eliquis due to recurrent anemia from her MDS and chemo. She received a blood transfusion this past week. Pt had a syncopal episode while in the ED. She denies shortness of breath, fevers, urinary symptoms, chest pain, leg swelling, cough, headache or back pain. TRAVEL OUTSIDE OF THE [place] IN LAST 30 DAYS: No - Related Data Allergies/Adverse Reactions: No Known Allergies Allergy (Verified 04/25/17 05:44) Past Medical History - General Information source: Patient, Relative - Social History Smoking Status: Never Smoker Family History: CAD - Extensive family history of coronary artery disease and pacemaker placement in multiple family members - Past Medical History Cardiac Medical History: Reports: Hx Hypercholesterolemia, Hx Hypertension Renal/ Medical History: Denies: Hx Peritoneal Dialysis Musculoskeltal Medical History: Reports Hx Arthritis Past Surgical History: Reports: Hx Oral Surgery - Immunizations Immunizations up to date: Yes Hx Diphtheria, Pertussis, Tetanus Vaccination: Yes Hx Pneumococcal Vaccination: 02/29/16 Review of Systems - Review of Systems Notes: REVIEW OF SYSTEMS: CONSTITUTIONAL: -fevers, -chills EENT: -eye pain, -difficulty swallowing, -nasal congestion CARDIOVASCULAR:-chest pain, -syncope, +palpitations RESPIRATORY: -cough, -SOB GASTROINTESTINAL: -abdominal pain, -nausea, -vomiting, -diarrhea GENITOURINARY: -dysuria, -hematuria MUSCULOSKELETAL: -back pain, -neck pain SKIN: -rash or skin lesions. HEMATOLOGIC: -easy bruising or bleeding. LYMPHATIC: -swollen, enlarged glands. NEUROLOGICAL: -altered mental status or loss of consciousness, -headache, - neurologic symptoms PSYCHIATRIC: -anxiety, -depression. ALL OTHER SYSTEMS REVIEWED AND NEGATIVE. Physical Exam - Vital signs Vitals: Temp Pulse Resp BP Pulse Ox 98.4 F 77 18 143/92 H 96 04/25/17 05:44 04/25/17 05:44 04/25/17 05:44 04/25/17 05:44 04/25/17 05:44 - Notes Notes: PHYSICAL EXAMINATION: GENERAL: Well-appearing, well-nourished and in no acute distress. HEAD: Atraumatic, normocephalic. EYES: Pupils equal round and reactive to light, extraocular movements intact, sclera anicteric, conjunctiva are normal. ENT: nares patent, oropharynx clear without exudates. Moist mucous membranes. NECK: Normal range of motion, supple without lymphadenopathy LUNGS: Breath sounds clear to auscultation bilaterally and equal. No wheezes rales or rhonchi. HEART: Irregularly irregular rhythm, tachycardia ABDOMEN: Soft, nontender, normoactive bowel sounds. No guarding, no rebound. No masses appreciated. EXTREMITIES: Normal range of motion, no pitting or edema. No cyanosis. NEUROLOGICAL: Cranial nerves grossly intact. Normal speech, normal gait. Normal sensory and motor exams. PSYCH: Normal mood, normal affect. SKIN: Warm, Dry, normal turgor, no rashes or lesions noted. Course - Re-evaluation Re-evalutation: 04/25/17 06:21 Pt placed on the monitor she is found to be in A. fib with RVR. Intermittently, she will have 2-3 seconds of asystole on the monitor where she is asymptomatic and feels like she is going to pass out. Pacer pads immediately placed on patient on my evaluation. 04/25/17 06:39 Spoke to patient's hot car charger, Dr. David, and he recommends transfer to [facility] for a temporary pacemaker due to the frequent bouts of pauses. He does not recommend beginning metoprolol for rate control at this time. Pt externally paced due to near-syncopal and syncopal episodes during these pauses. 04/25/17 07:[address] Hwang ([facility]) and he has accepted patient. Awaiting bed assignment and transportation. Pt is neutropenic (called back to [facility] to update them), but she does not have a fever or any signs of infection. 04/25/17 08:07 Air transport in ED and patient reevaluated. She spontaneously converted into sinus rhythm with a heart rate of 97 her blood pressure is 138/ 87 and she is feeling much better. Patient is stable for transport for evaluation by electrophysiology. - Vital Signs Vital signs: Temp Pulse Resp BP Pulse Ox 97.5 F 77 22 H 138/87 H 100 04/25/17 08:00 04/25/17 05:44 04/25/17 08:02 04/25/17 08:02 04/25/17 08:02 - Laboratory Result Diagrams: 04/25/17 06:05 04/25/17 06:05 Laboratory results interpreted by me: 04/25/17 04/25/17 06:05 06:05 WBC 3.5 L RBC 2.74 L Hgb 10.0 L Hct 28.2 L MCV 103 H D MCH 36.5 H RDW 18.0 H Plt Count 112 L Seg Neuts % (Manual) 8 L Lymphocytes % (Manual) 74 H Monocytes % (Manual) 18 H Abs Neuts (Manual) 0.3 L Glucose 116 H - Diagnostic Test Radiology reviewed: Image reviewed, Reports reviewed Radiology results interpreted by me: CXR: NAD - EKG Interpretation by Me EKG shows normal: [place], Intervals, QRS Complexes Rate: Tachycardia Rhythm: A.Fib When compared to previous EKG there are: Changes noted Critical Care Note - Critical Care Note Total time excluding time spent on procedures (mins): 35 Discharge - Discharge Clinical Impression: Atrial fibrillation with RVR, Tachy-danica syndrome, Asystole Neutropenia Qualifiers: Neutropenia type: secondary to cancer chemotherapy Qualified Code(s): D70.1 - Agranulocytosis secondary to cancer chemotherapy; T45.1X5A - Adverse effect of antineoplastic and immunosuppressive drugs, initial encounter; T45.1X5A - Adverse effect of antineoplastic and immunosuppressive drugs, initial encounter Syncope Qualifiers: Syncope type: unspecified Qualified Code(s): R55 - Syncope and collapse Condition: Critical Disposition: [facility] Referrals: ALKA LAFLEUR PA-C [Primary Care Provider] - Follow up as needed
[2017-04-25 06:35] LABS: ALANINE AMINOTRANSFERASE 30 U/L (9-52); ALBUMIN 3.8 g/dL (3.5-5.0); ALKALINE PHOSPHATASE 80 U/L (38-126); ANION GAP 14 (5-19); ASPARTATE AMINO TRANSFERASE 23 U/L (14-36); BILIRUBIN,DIRECT 0.2 mg/dL (0.0-0.4); BILIRUBIN,TOTAL 0.6 mg/dL (0.2-1.3); BLOOD UREA NITROGEN 19 mg/dL (7-20); CALCIUM 9.6 mg/dL (8.4-10.2); CARBON DIOXIDE 25 mmol/L (22-30); CHLORIDE 106 mmol/L (98-107); CREATINE KINASE 36 U/L (30-135); CREATININE RESULT 0.63 mg/dL (0.52-1.25); GLUCOSE 116 mg/dL (75-110); POTASSIUM 4.3 mmol/L (3.6-5.0); SODIUM 144.7 mmol/L (137-145); TOTAL PROTEIN 6.5 g/dL (6.3-8.2)
[2017-04-25 07:05] LABS: BASOPHILS % (MANUAL) 0 % (0-2); EOSINOPHILS % (MANUAL) 0 % (0-6); TOTAL CELLS COUNTED 100
[2017-04-25 07:06] LABS: LYMPHOCYTES % (MANUAL) 74 % (13-45)
--- NOTE | 2017-04-25 07:06 | RADIOLOGY REPORT (SQ) ---
EXAM DESCRIPTION: CHEST SINGLE VIEW COMPLETED DATE/TIME: 04/25/2017 6:53 am REASON FOR STUDY: palpitations COMPARISON: None. EXAM PARAMETERS: NUMBER OF VIEWS: One view. TECHNIQUE: Single frontal radiographic view of the chest acquired. RADIATION DOSE: NA LIMITATIONS: None. FINDINGS: LUNGS AND PLEURA: No opacities, masses or pneumothorax. No pleural effusion. Prominent in terstitium. MEDIASTINUM AND HILAR STRUCTURES: No masses. Contour normal. HEART AND VASCULAR STRUCTURES: Heart normal in size. Atherosclerosis. BONES: No acute findings. HARDWARE: None in the chest. OTHER: No other significant finding. IMPRESSION: No acute cardiopulmonary findings. TECHNICAL DOCUMENTATION: JOB ID: [id number] [employer]- All Rights Reserved
[2017-04-25 07:07] LABS: ANISOCYTOSIS 1+
[2017-04-25 07:12] LABS: MEAN CORPUSCULAR VOLUME 103 fl (80-97)
[2017-04-25 08:03] VITALS: BP 138/87
--- NOTE | 2017-04-26 05:59 | EKG REPORT ---
SEVERITY:- ABNORMAL ECG - ATRIAL FIBRILLATION WITH RAPID V-RATE LEFT AXIS DEVIATION LVH WITH SECONDARY REPOLARIZATION ABNORMALITY : Confirmed by: Adrianne Camacho MD 26-Apr-2017 05:58:03
== END 2017-04-25 08:20 | disposition short-term general hospital (02) ==
LOC: ER 05:31
DX: D70.1 Agranulocytosis secondary to cancer chemotherapy (principal); I48.91 Unspecified atrial fibrillation; I49.5 Sick sinus syndrome; I46.9 Cardiac arrest, cause unspecified; R55 Syncope and collapse; T45.1X5A Adverse effect of antineoplastic and immunosuppressive drugs, initial encounter; R53.1 Weakness; R00.2 Palpitations
CPT/HCPCS: 93005; 99291; 96360; 86900; 86901; 36415; 86850; 82550; 85025; 80053; 84484; 71010; 93010; J7030

== ENCOUNTER → 2017-06-07 | Outpatient (CLI) | payer MEDICARE, OTHER ==
[2017-06-07 16:02] LABS: HEMATOCRIT 29.4 % (36.0-47.0); HEMOGLOBIN 9.9 g/dL (12.0-15.5); MEAN CORPUSCULAR HEMOGLOBIN 35.2 pg (27.0-33.4); MEAN CORPUSCULAR HGB CONC 33.7 g/dL (32.0-36.0); RED BLOOD COUNT 2.82 10^6/uL (3.72-5.28); RED CELL DISTRIBUTION WIDTH 24.1 % (11.5-14.0); WHITE BLOOD COUNT 2.2 10^3/uL (4.0-10.5)
[2017-06-07 16:10] LABS: APPEARANCE,URINE CLEAR; BILIRUBIN,URINE NEGATIVE (NEGATIVE); COLOR,URINE YELLOW; GLUCOSE, URINE NEGATIVE (NEGATIVE); KETONES,URINE NEGATIVE (NEGATIVE); LEUKOCYTE ESTERASE,URINE NEGATIVE (NEGATIVE); NITRITE,URINE NEGATIVE (NEGATIVE); PROTEIN,URINE NEGATIVE (NEGATIVE); URINE SPECIFIC GRAVITY 1.008; UROBILINOGEN,URINE NEGATIVE mg/dL (<2.0)
[2017-06-07 16:12] LABS: APPEARANCE,URINE CLEAR; BILIRUBIN,URINE NEGATIVE (NEGATIVE); COLOR,URINE YELLOW; GLUCOSE, URINE NEGATIVE (NEGATIVE); KETONES,URINE NEGATIVE (NEGATIVE); LEUKOCYTE ESTERASE,URINE NEGATIVE (NEGATIVE); NITRITE,URINE NEGATIVE (NEGATIVE); PROTEIN,URINE NEGATIVE (NEGATIVE); URINE SPECIFIC GRAVITY 1.008; UROBILINOGEN,URINE NEGATIVE mg/dL (<2.0)
[2017-06-07 16:16] LABS: ANION GAP 7 (5-19); BLOOD UREA NITROGEN 16 mg/dL (7-20); CARBON DIOXIDE 31 mmol/L (22-30); CHLORIDE 104 mmol/L (98-107); GLUCOSE 113 mg/dL (75-110); POTASSIUM 4.2 mmol/L (3.6-5.0); SODIUM 141.8 mmol/L (137-145); TOTAL PROTEIN 6.7 g/dL (6.3-8.2)
[2017-06-07 16:18] LABS: ALANINE AMINOTRANSFERASE 29 U/L (9-52); ALKALINE PHOSPHATASE 69 U/L (38-126); ASPARTATE AMINO TRANSFERASE 25 U/L (14-36); BILIRUBIN,TOTAL 0.2 mg/dL (0.2-1.3)
[2017-06-07 16:20] LABS: ABSOLUTE MONOCYTES # (MANUAL) 0.1 10^3/uL (0.1-1.4); ABSOLUTE NEUTROPHILS# (MANUAL) 0.1 10^3/uL (1.7-8.2); BASOPHILS % (MANUAL) 0 % (0-2); EOSINOPHILS % (MANUAL) 0 % (0-6); MONOCYTES % (MANUAL) 3 % (3-13); SEGMENTED NEUTROPHILS % (MAN) 4 % (42-78); TOTAL CELLS COUNTED 100
[2017-06-07 16:24] LABS: LYMPHOCYTES % (MANUAL) 91 % (13-45); PLATELET COMMENT DECREASED
[2017-06-07 16:26] LABS: PLATELET COUNT 99 10^3/uL (150-450)
[2017-06-07 16:27] LABS: MEAN CORPUSCULAR VOLUME 104 fl (80-97)
== END ==
LOC: OD 15:06
PROVIDERS: ATTEND Internal Medicine Cardiovascular Disease
DX: Z79.01 Long term (current) use of anticoagulants (principal); Z79.899 Other long term (current) drug therapy
CPT/HCPCS: 36415; 80048; 80076; 81001; 82272; 85025; 85730

== ENCOUNTER 2017-06-23 22:17 | Emergency (ER) | payer MEDICARE, OTHER ==
--- NOTE | 2017-06-23 23:16 | ER Document Report ---
ED General - General Chief Complaint: Palpitations Stated Complaint: BLOOD PRESSURE PROBLEMS Time Seen by Provider: 06/23/17 23:15 Notes: Patient is a 68-year-old female who presents with complaints of rapid heartbeat and palpitations. She says started earlier today. She has chronic atrial fibrillation but usually well rate controlled. She is to be on Eliquis but this was stopped proximally month ago because she has myelodysplastic syndrome and she was becoming more anemic with it. She is currently not on any blood thinning medication for her atrial fibrillation because the risks outweigh the benefits. Patient has been seen many times in the past for A. fib with RVR. She denies recent fevers or infections. She says she will sometimes felt just a very small amount of chest tightness when her heart rate gets in to the 140s or 150s but currently she says she does not have any types tightness at this time. Currently when I talked her heart rate is around 120s 130s. She denies abdominal pain. No vomiting. No leg pain or leg swelling. No other complaints at this time. Her community planner is Dr. David. Her primary care doctor [facility]. TRAVEL OUTSIDE OF THE [place] IN LAST 30 DAYS: No - Related Data Allergies/Adverse Reactions: No Known Allergies Allergy (Verified 04/25/17 05:44) Past Medical History - Social History Smoking Status: Never Smoker Frequency of alcohol use: None Drug Abuse: None Family History: CAD - Extensive family history of coronary artery disease and pacemaker placement in multiple family members - Past Medical History Cardiac Medical History: Reports: Hx Atrial Fibrillation, Hx Hypercholesterolemia, Hx Hypertension Renal/ Medical History: Denies: Hx Peritoneal Dialysis Musculoskeltal Medical History: Reports Hx Arthritis Past Surgical History: Reports: Hx Oral Surgery - Immunizations Immunizations up to date: Yes Hx Diphtheria, Pertussis, Tetanus Vaccination: Yes Hx Pneumococcal Vaccination: 02/29/16 Review of Systems - Review of Systems Notes: My Normal Review Basic REVIEW OF SYSTEMS: CONSTITUTIONAL : Denies fever, chills, or sweats. Denies recent illness. EENT: Denies eye, ear, throat, or mouth pain or symptoms. Denies nasal or sinus congestion. CARDIOVASCULAR: Palpitations. Atrial fibrillation. RESPIRATORY: Denies cough, cold, or chest congestion. Denies shortness of breath, difficulty breathing, or wheezing. GASTROINTESTINAL: Denies abdominal pain. Denies nausea, vomiting, or diarrhea. MUSCULOSKELETAL: Denies neck or back pain or joint pain or swelling. SKIN: Denies rash or skin lesions. NEUROLOGICAL: Denies altered mental status or loss of consciousness. Denies headache. Denies weakness or paralysis or loss of use of either side. Denies problems with gait or speech. Denies sensory or motor loss. ALL OTHER SYSTEMS REVIEWED AND NEGATIVE. Physical Exam - Vital signs Vitals: Resp 19 06/23/17 23:16 - Notes Notes: General Appearance: Well nourished, alert, cooperative, no acute distress, no obvious discomfort. Well appearing. Vitals: reviewed, See vital signs table. Head: no swelling or tenderness to the head Eyes: PERRL, EOMI, Conjuctiva clear Mouth: No decreasd moisture Throat: No tonsillar inflammation, No airway obstruction, No lymphadenopathy Neck: Supple, no neck tenderness, No thyromegaly Lungs: No wheezing, No rales, No rhonci, No accessory muscle use, good air exchange bilaterally. Heart: Tachycardic rate, Irregular rythm, No murmur, no rub Abdomen: Normal BS, soft, No rigidity, No abdominal tenderness, No guarding, no rebound, no abdominal masses, no organomegaly Extremities: strength 5/5 in all extremities, good pulses in all extremities, no swelling or tenderness in the extremities, no edema. Skin: warm, dry, appropriate color, no rash Neuro: speech clear, oriented x 3, normal affect, responds appropriately to questions. Course - Re-evaluation Re-evalutation: 06/24/17 02:08 Patient converted with the Cardizem. I have stopped the Cardizem. Will watch and monitor for several more hours. If she remains converted without return to A. fib with rapid rate she will be able to go home. 06/24/17 05:15 On reevaluation patient continues to be resting comfortably. She has remained in paced rhythm without recurrence of atrial fibrillation. 06/24/17 06:11 Patient has remained in sinus or paced rhythm. She has no further atrial fibrillation. I did monitor throughout the night. She has no signs of stroke on reevaluation. She is awake alert renal nerves are intact. I feel that she is safe to be discharged home. Encouraged her follow-up with her community planner. Encouraged her return to ER if she has any recurrence of rapid heartbeat or chest pain. Patient agrees with plan will be discharged home. Dictation of this chart was performed using voice recognition software; therefore, there may be some unintended grammatical errors. - Vital Signs Vital signs: Temp Pulse Resp BP Pulse Ox 16 98/48 L 94 06/24/17 05:01 06/24/17 05:01 06/24/17 05:01 - Laboratory Result Diagrams: 06/23/17 23:25 06/23/17 23:25 Laboratory results interpreted by me: 06/23/17 06/23/17 23:25 23:25 RBC 3.26 L Hgb 11.5 L Hct 34.0 L MCV 104 H MCH 35.3 H RDW 23.2 H Seg Neuts % (Manual) 26 L Band Neutrophils % 1 L Lymphocytes % (Manual) 63 H Abs Neuts (Manual) 1.5 L Glucose 130 H - EKG Interpretation by Me Additional EKG results interpreted by me: 06/23/17 23:16 EKG is reviewed and interpreted by me. EKG shows A. fib with RVR with rate of [address] segment changes. QRS duration is within normal range. QT interval is prolonged. Old EKG for comparison is from April 25, 2017. 06/24/17 02:08 EKG #2 shows conversion to atrial paced rhythm with a rate of [address] segment elevation or depression. No ischemic T-wave inversions. NH interval, QTc intervals are within normal range. QRS duration is slightly prolonged. Discharge - Discharge Clinical Impression: MDS (myelodysplastic syndrome) Atrial fibrillation Qualifiers: Atrial fibrillation type: paroxysmal Qualified Code(s): I48.0 - Paroxysmal atrial fibrillation Condition: Good Disposition: HOME, SELF-CARE Additional Instructions: Please continue to take your medications as prescribed. Please follow up with Dr. David within the next 2 days for reevaluation. Please return to the ER immediately if you develop recurrent heart racing, chest pain, fevers, or feel unwell.
[2017-06-23] MEDS ORDERED: DILTIAZEM HCL/D5W 125 MG/125 ML RTUINJ IV PRN (23:26)
[2017-06-23] MEDS ORDERED: DILTIAZEM HCL INJ 25 MG/5 ML VIAL IV ONE (23:26)
[2017-06-23 23:47] LABS: MEAN CORPUSCULAR HGB CONC 33.9 g/dL (32.0-36.0)
[2017-06-23 23:48] LABS: INTERNATIONAL RATION (INR) 1.02; PARTIAL THROMBOPLASTIN TIME 24.6 SEC (23.5-35.8); PROTHROMBIN TIME 14.1 SEC (11.4-15.4)
[2017-06-23 23:52] LABS: HEMOGLOBIN 11.5 g/dL (12.0-15.5); MEAN CORPUSCULAR HEMOGLOBIN 35.3 pg (27.0-33.4); MEAN CORPUSCULAR VOLUME 104 fl (80-97); PLATELET COUNT 178 10^3/uL (150-450); RED BLOOD COUNT 3.26 10^6/uL (3.72-5.28); RED CELL DISTRIBUTION WIDTH 23.2 % (11.5-14.0); WHITE BLOOD COUNT 5.4 10^3/uL (4.0-10.5)
--- NOTE | 2017-06-24 00:01 | RADIOLOGY REPORT (SQ) ---
EXAM DESCRIPTION: CHEST SINGLE VIEW COMPLETED DATE/TIME: 06/23/2017 11:47 pm REASON FOR STUDY: atrial fib COMPARISON: 04/25/2017 EXAM PARAMETERS: NUMBER OF VIEWS: One view. TECHNIQUE: Single frontal radiographic view of the chest acquired. RADIATION DOSE: NA LIMITATIONS: None. FINDINGS: LUNGS AND PLEURA: No acute opacities, masses or pneumothorax. No pleural effusion. MEDIASTINUM AND HILAR STRUCTURES: Stable. HEART AND VASCULAR STRUCTURES: Stable. BONES: No acute findings. HARDWARE: 2 lead cardiac pacer. OTHER: No other significant finding. IMPRESSION: NO ACUTE RADIOGRAPHIC FINDING IN THE CHEST. TECHNICAL DOCUMENTATION: JOB ID: [id number] [place]-72 2010 [employer]- All Rights Reserved
[2017-06-24 00:09] LABS: ABSOLUTE LYMPHOCYTES# (MANUAL) 3.5 10^3/uL (0.5-4.7); ABSOLUTE MONOCYTES # (MANUAL) 0.4 10^3/uL (0.1-1.4); ABSOLUTE NEUTROPHILS# (MANUAL) 1.5 10^3/uL (1.7-8.2); BAND NEUTROPHILS % (MANUAL) 1 % (3-5); BASOPHILS % (MANUAL) 0 % (0-2); EOSINOPHILS % (MANUAL) 1 % (0-6); LYMPHOCYTES % (MANUAL) 63 % (13-45); MONOCYTES % (MANUAL) 7 % (3-13); NUCLEATED RED BLOOD CELLS 1 /100 WBC (0); SEGMENTED NEUTROPHILS % (MAN) 26 % (42-78); TOTAL CELLS COUNTED 100
[2017-06-24 00:10] LABS: ANISOCYTOSIS 3+; PLATELET COMMENT ADEQUATE; POLYCHROMASIA SLIGHT; TEAR DROP CELLS SLIGHT
[2017-06-24 00:15] LABS: ALANINE AMINOTRANSFERASE 28 U/L (9-52); ALKALINE PHOSPHATASE 73 U/L (38-126); ANION GAP 9 (5-19); ASPARTATE AMINO TRANSFERASE 25 U/L (14-36); BILIRUBIN,DIRECT 0.1 mg/dL (0.0-0.4); BILIRUBIN,TOTAL 0.4 mg/dL (0.2-1.3); BLOOD UREA NITROGEN 19 mg/dL (7-20); CALCIUM 9.9 mg/dL (8.4-10.2); CARBON DIOXIDE 28 mmol/L (22-30); CHLORIDE 104 mmol/L (98-107); GLUCOSE 130 mg/dL (75-110); SODIUM 140.7 mmol/L (137-145); TOTAL PROTEIN 6.8 g/dL (6.3-8.2)
[2017-06-24] MEDS ORDERED: DILTIAZEM HCL INJ 25 MG/5 ML VIAL IV ONE (01:22)
[2017-06-24 06:25] VITALS: BP 97/52
--- NOTE | 2017-06-24 11:55 | EKG REPORT ---
SEVERITY:- ABNORMAL ECG - ATRIAL-VENTRICULAR DUAL-PACED COMPLEXES NONSPECIFIC IVCD WITH LAD : Confirmed by: Jeannine Sadler 24-Jun-2017 11:54:20
--- NOTE | 2017-06-24 11:55 | EKG REPORT ---
SEVERITY:- ABNORMAL ECG - ATRIAL FLUTTER WITH 2:1 AV BLOCK LEFT AXIS DEVIATION LVH WITH SECONDARY REPOLARIZATION ABNORMALITY : Confirmed by: Jeannine Sadler 24-Jun-2017 11:54:27
== END 2017-06-24 06:30 | disposition home or self-care (01) ==
LOC: ER 22:17
DX: I48.0 Paroxysmal atrial fibrillation (principal); D46.9 Myelodysplastic syndrome, unspecified; I10 Essential (primary) hypertension; R00.0 Tachycardia, unspecified
CPT/HCPCS: 93005 ×2; 99285; 96365; 96366; 36415; 83735; 85025; 85610; 85730; 80053; 84484; 71045; 93010 ×2; J3490 ×3

== ENCOUNTER → 2017-07-24 | Outpatient (CLI) | payer MEDICARE, OTHER ==
[2017-07-24 11:34] LABS: CHOLESTEROL 128.05 mg/dL (0-200); TRIGLYCERIDES 108 mg/dL (<150)
[2017-07-24 11:36] LABS: ALANINE AMINOTRANSFERASE 32 U/L (9-52); ALBUMIN 3.8 g/dL (3.5-5.0); ALKALINE PHOSPHATASE 65 U/L (38-126); ANION GAP 7 (5-19); ASPARTATE AMINO TRANSFERASE 28 U/L (14-36); BILIRUBIN,DIRECT 0.2 mg/dL (0.0-0.4); BILIRUBIN,TOTAL 0.5 mg/dL (0.2-1.3); BLOOD UREA NITROGEN 14 mg/dL (7-20); CARBON DIOXIDE 29 mmol/L (22-30); CHLORIDE 106 mmol/L (98-107); GLUCOSE 100 mg/dL (75-110); POTASSIUM 5.1 mmol/L (3.6-5.0); SODIUM 142.3 mmol/L (137-145); TOTAL PROTEIN 6.5 g/dL (6.3-8.2)
[2017-07-24 11:45] LABS: DIRECT LDL 60 mg/dL (<100)
== END ==
LOC: OD 10:31
PROVIDERS: ATTEND Internal Medicine Cardiovascular Disease
DX: I48.0 Paroxysmal atrial fibrillation (principal); I10 Essential (primary) hypertension; D69.6 Thrombocytopenia, unspecified; E78.00 Pure hypercholesterolemia, unspecified; Z79.899 Other long term (current) drug therapy
CPT/HCPCS: 36415; 80048; 80061; 80076; 83735; 84443

== ENCOUNTER → 2017-09-27 | Outpatient (CLI) | payer MEDICARE, OTHER ==
[2017-09-27 17:24] LABS: HEMATOCRIT 37.7 % (36.0-47.0); HEMOGLOBIN 12.4 g/dL (12.0-15.5); MEAN CORPUSCULAR HEMOGLOBIN 33.6 pg (27.0-33.4); MEAN CORPUSCULAR HGB CONC 32.9 g/dL (32.0-36.0); MEAN CORPUSCULAR VOLUME 102 fl (80-97); PLATELET COUNT 127 10^3/uL (150-450); RED BLOOD COUNT 3.69 10^6/uL (3.72-5.28); RED CELL DISTRIBUTION WIDTH 15.1 % (11.5-14.0)
[2017-09-27 17:31] LABS: APPEARANCE,URINE CLEAR; BILIRUBIN,URINE NEGATIVE (NEGATIVE); COLOR,URINE YELLOW; GLUCOSE, URINE NEGATIVE (NEGATIVE); KETONES,URINE NEGATIVE (NEGATIVE); LEUKOCYTE ESTERASE,URINE NEGATIVE (NEGATIVE); NITRITE,URINE NEGATIVE (NEGATIVE); PROTEIN,URINE NEGATIVE (NEGATIVE); URINE SPECIFIC GRAVITY 1.011; UROBILINOGEN,URINE NEGATIVE mg/dL (<2.0)
[2017-09-27 17:46] LABS: ALANINE AMINOTRANSFERASE 38 U/L (9-52); ALKALINE PHOSPHATASE 69 U/L (38-126); ANION GAP 10 (5-19); ASPARTATE AMINO TRANSFERASE 26 U/L (14-36); BILIRUBIN,TOTAL 0.2 mg/dL (0.2-1.3); BLOOD UREA NITROGEN 15 mg/dL (7-20); CALCIUM 9.5 mg/dL (8.4-10.2); CARBON DIOXIDE 32 mmol/L (22-30); CHLORIDE 104 mmol/L (98-107); GLUCOSE 97 mg/dL (75-110); POTASSIUM 4.8 mmol/L (3.6-5.0); TOTAL PROTEIN 6.7 g/dL (6.3-8.2)
== END ==
LOC: OD 16:11
PROVIDERS: ATTEND Internal Medicine Cardiovascular Disease
DX: I48.0 Paroxysmal atrial fibrillation (principal); Z79.01 Long term (current) use of anticoagulants; Z79.899 Other long term (current) drug therapy
CPT/HCPCS: 36415; 80048; 80076; 81001; 82272; 83735; 85027; 85730

== ENCOUNTER 2017-10-14 23:56 | Emergency (ER) | payer MEDICARE, OTHER ==
[2017-10-15 00:52] LABS: APPEARANCE,URINE CLEAR; BILIRUBIN,URINE NEGATIVE (NEGATIVE); COLOR,URINE STRAW; GLUCOSE, URINE NEGATIVE (NEGATIVE); KETONES,URINE NEGATIVE (NEGATIVE); LEUKOCYTE ESTERASE,URINE NEGATIVE (NEGATIVE); NITRITE,URINE NEGATIVE (NEGATIVE); PROTEIN,URINE NEGATIVE (NEGATIVE); URINE SPECIFIC GRAVITY 1.012; UROBILINOGEN,URINE NEGATIVE mg/dL (<2.0)
--- NOTE | 2017-10-15 02:13 | ER Document Report ---
ED General - General Chief Complaint: Palpitations Stated Complaint: FAST HEART RATE Time Seen by Provider: 10/15/17 01:50 TRAVEL OUTSIDE OF THE [place] IN LAST 30 DAYS: No - HPI Notes: Patient is a 76-year-old female with a past medical history of A. fib (has pacer ), myelodysplastic syndrome (next chemo tomorrow and follows with Dr. Rodriguez), hypertension, and anxiety who presents to the ED with family complaining of an elevated heart rate in the 130s and going into A. fib 5-6 hours ago. Patient states that that has since resolved and she is feeling good. Patient states that she was not sure if she should get evaluated so she came to the emergency department. Patient states that she has been taking her sotalol twice daily as directed and is on Eliquis again. She was evaluated him about a month ago with similar symptoms and had to be sent to [place] to have a pacemaker placed. Patient states that she has been doing well since then. Her steam locomotive firer/fireman is Dr. David. Patient has no other concerns or complaints at this time. Denies any headache, fever, neck pain, URI, sore throat, chest pain, syncope, cough, shortness of breath, wheeze, dyspnea, abdominal pain, nausea/vomiting/diarrhea, urinary retention, dysuria, hematuria, or rash. - Related Data Allergies/Adverse Reactions: No Known Allergies Allergy (Verified 04/25/17 05:44) Past Medical History - Social History Smoking Status: Never Smoker Chew tobacco use (# tins/day): No Frequency of alcohol use: Rare Drug Abuse: None Family History: CAD - Extensive family history of coronary artery disease and pacemaker placement in multiple family members Patient has suicidal ideation: No Patient has homicidal ideation: No - Past Medical History Cardiac Medical History: Reports: Hx Atrial Fibrillation, Hx Hypercholesterolemia, Hx Hypertension Renal/ Medical History: Denies: Hx Peritoneal Dialysis Musculoskeltal Medical History: Reports Hx Arthritis Past Surgical History: Reports: Hx Oral Surgery - Immunizations Immunizations up to date: Yes Hx Diphtheria, Pertussis, Tetanus Vaccination: Yes Hx Pneumococcal Vaccination: 02/29/16 Review of Systems - Review of Systems -: Yes All other systems reviewed and negative Physical Exam - Vital signs Vitals: Temp Pulse Resp BP Pulse Ox 98.5 F 73 18 117/54 L 94 10/15/17 00:24 10/15/17 00:24 10/15/17 00:24 10/15/17 00:24 10/15/17 00:24 - Notes Notes: PHYSICAL EXAMINATION: GENERAL: Well-appearing, well-nourished and in no acute distress. A&Ox4. Answers questions appropriately. HEAD: Atraumatic, normocephalic. EYES: Pupils equal round and reactive to light, extraocular movements intact, sclera anicteric, conjunctiva are normal. ENT: Nares patent and without discharge. oropharynx clear without exudates. No tonsilar hypertrophy or erythema. Moist mucous membranes. No sinus tenderness. NECK: Normal range of motion, supple without lymphadenopathy LUNGS: Breath sounds clear to auscultation bilaterally and equal. No wheezes rales or rhonchi. HEART: Regular rate and rhythm without murmurs, rubs, gallops. ABDOMEN: Soft, nontender, nondistended abdomen. No guarding, no rebound. No masses appreciated. Normal bowel sounds present. No CVA tenderness bilaterally. Musculoskeletal: FROM to passive/active. Strength 5+/5. Extremities: No cyanosis, clubbing, or edema b/l. Peripheral pulses 2+. Capillary refill less than 3 seconds. NEUROLOGICAL: Normal speech, normal gait. PSYCH: Normal mood, normal affect. SKIN: Warm, Dry, normal turgor, no rashes or lesions noted. Course - Re-evaluation Re-evalutation: 10/15/17 02:[address] Garland. We will check basic labs. EKG acceptable. Pt in rhythm and asympatomatic. 10/15/17 02:44 Patient is an afebrile, well-hydrated, 76-year-old female who presents to the ED with palpitations, since resolved. Vitals are acceptable. PE is otherwise unremarkable. Patient is currently asymptomatic. She is in sinus rhythm with a heart rate of 76 and blood pressure 118/55. She is tolerating p.o. without difficulties. She has no significant tachycardia, tachypnea, or hypoxia. She has not had any recurrence of A. fib while in the emergency department. EKG was unremarkable as well as a CBC, CMP, magnesium, and urine. No other labs or imaging warranted at this time based on H&P. Low suspicion for any sepsis, meningitis, ACS, PE, pneumothorax, pericarditis, dissection, severe dehydration , electrolyte abnormalities. Patient is aware condition can change from initial presentation and she needs to monitor symptoms closely and seek medical attention with any acute changes. Recheck with your PCM/Cardio in 3-5 days. Return to the ED with any worsening/concerning symptoms otherwise as reviewed discharge. Keep appointment for chemo treatment tomorrow. Patient/family in agreement. - Vital Signs Vital signs: Temp Pulse Resp BP Pulse Ox 98.5 F 73 27 H 111/49 L 94 10/15/17 00:24 10/15/17 00:24 10/15/17 01:43 10/15/17 01:43 10/15/17 01:43 - Laboratory Result Diagrams: 10/15/17 01:05 10/15/17 01:05 Laboratory results interpreted by me: 10/15/17 10/15/17 10/15/17 00:19 01:05 01:05 RBC 3.66 L MCV 100 H MCH 33.7 H RDW 14.9 H Basophils % 2.1 H Sodium 145.2 H Glucose 116 H Urine Ascorbic Acid 20 H Discharge - Discharge Clinical Impression: Palpitations Condition: Stable Disposition: HOME, SELF-CARE Instructions: Palpitations (Irregular or Rapid Heartrate) ([facility]) Additional Instructions: Maintain adequate fluid and food intake Take home medications as directed Low sodium/fat diet Exercise regularly Weight control Monitor blood pressure daily and keep a log Monitor symptoms for any acute changes Recheck with your PCM/Improvement Lead in 3-5 days Return to the ED with any worsening symptoms and/or development of fever, headache, chest pain, palpitations, syncope, shortness of breath, trouble breathing, abdominal pain, n/v/d, blood in stool/urine, loss of control of bowel /bladder, urinary retention, muscle weakness/paralysis, numbness/tingling, or other worsening symptoms that are concerning to you. Referrals: LAUREN CARRANZA FNP-C [Primary Care Provider] - Follow up in 3-5 days ISAEL DAVID MD [EMERITUS] - Follow up in 3-5 days
[2017-10-15 02:14] LABS: ABSOLUTE BASOPHILS # (AUTO) 0.1 10^3/uL (0.0-0.2); ABSOLUTE EOSINOPHILS # (AUTO) 0.1 10^3/uL (0.0-0.6); ABSOLUTE LYMPHOCYTES (AUTO) 2.1 10^3/uL (0.5-4.7); ABSOLUTE MONOCYTES (AUTO) 0.5 10^3/uL (0.1-1.4); ABSOLUTE NEUT (AUTO) 2.2 10^3/uL (1.7-8.2); BASOPHILS % (AUTO) 2.1 % (0-2); EOSINOPHILS % (AUTO) 1.4 % (0-6); HEMATOCRIT 36.5 % (36.0-47.0); HEMOGLOBIN 12.3 g/dL (12.0-15.5); LYMPHOCYTES % (AUTO) 42.6 % (13-45); MEAN CORPUSCULAR HEMOGLOBIN 33.7 pg (27.0-33.4); MEAN CORPUSCULAR HGB CONC 33.8 g/dL (32.0-36.0); MEAN CORPUSCULAR VOLUME 100 fl (80-97); MONOCYTES % (AUTO) 10.2 % (3-13); PLATELET COUNT 239 10^3/uL (150-450); RED BLOOD COUNT 3.66 10^6/uL (3.72-5.28); RED CELL DISTRIBUTION WIDTH 14.9 % (11.5-14.0); SEGMENTED NEUTROPHILS % (AUTO) 43.7 % (42-78); TOTAL CELLS COUNTED % (AUTO) 100 %; WHITE BLOOD COUNT 4.9 10^3/uL (4.0-10.5)
[2017-10-15 02:40] LABS: ALANINE AMINOTRANSFERASE 32 U/L (9-52); ALBUMIN 3.6 g/dL (3.5-5.0); ALKALINE PHOSPHATASE 69 U/L (38-126); ANION GAP 13 (5-19); ASPARTATE AMINO TRANSFERASE 26 U/L (14-36); BILIRUBIN,DIRECT 0.2 mg/dL (0.0-0.4); BILIRUBIN,TOTAL 0.2 mg/dL (0.2-1.3); BLOOD UREA NITROGEN 16 mg/dL (7-20); CALCIUM 9.1 mg/dL (8.4-10.2); CARBON DIOXIDE 26 mmol/L (22-30); CHLORIDE 106 mmol/L (98-107); GLUCOSE 116 mg/dL (75-110); POTASSIUM 4.3 mmol/L (3.6-5.0); SODIUM 145.2 mmol/L (137-145); TOTAL PROTEIN 6.3 g/dL (6.3-8.2)
[2017-10-15 04:10] VITALS: BP 108/45
--- NOTE | 2017-10-15 08:17 | EKG REPORT ---
SEVERITY:- ABNORMAL ECG - SINUS RHYTHM PROBABLE LEFT ATRIAL ABNORMALITY LEFT AXIS DEVIATION LEFT VENTRICULAR HYPERTROPHY : Confirmed by: Jeannine Sadler 15-Oct-2017 05:17:36
== END 2017-10-15 04:00 | disposition home or self-care (01) ==
LOC: ER 23:56
DX: R00.2 Palpitations (principal); I48.91 Unspecified atrial fibrillation; Z95.0 Presence of cardiac pacemaker; Z79.01 Long term (current) use of anticoagulants; Z79.899 Other long term (current) drug therapy; D46.9 Myelodysplastic syndrome, unspecified; I10 Essential (primary) hypertension; Z82.49 Family history of ischemic heart disease and other diseases of the circulatory system
CPT/HCPCS: 36415; 80053; 81001; 83735; 85025; 93005; 93010; 99285

== ENCOUNTER → 2018-01-03 | Outpatient (CLI) | payer MEDICARE, OTHER ==
[2018-01-03 18:10] LABS: ALANINE AMINOTRANSFERASE 27 U/L (9-52); ALBUMIN 4.1 g/dL (3.5-5.0); ALKALINE PHOSPHATASE 66 U/L (38-126); ANION GAP 9 (5-19); ASPARTATE AMINO TRANSFERASE 29 U/L (14-36); BILIRUBIN,DIRECT 0.2 mg/dL (0.0-0.4); BILIRUBIN,TOTAL 0.4 mg/dL (0.2-1.3); BLOOD UREA NITROGEN 15 mg/dL (7-20); CARBON DIOXIDE 30 mmol/L (22-30); CHLORIDE 106 mmol/L (98-107); GLUCOSE 96 mg/dL (75-110); POTASSIUM 5.2 mmol/L (3.6-5.0); SODIUM 145.3 mmol/L (137-145); TOTAL PROTEIN 7.1 g/dL (6.3-8.2)
== END ==
LOC: OD 16:50
PROVIDERS: ATTEND Internal Medicine Cardiovascular Disease
DX: I10 Essential (primary) hypertension (principal); I48.0 Paroxysmal atrial fibrillation; D69.6 Thrombocytopenia, unspecified; Z79.899 Other long term (current) drug therapy
CPT/HCPCS: 36415; 80048; 80076; 83735; 84443

== ENCOUNTER → 2018-03-28 | Outpatient (CLI) | payer MEDICARE, OTHER ==
[2018-03-28 14:29] LABS: ALANINE AMINOTRANSFERASE 24 U/L (9-52); ALBUMIN 3.9 g/dL (3.5-5.0); ALKALINE PHOSPHATASE 73 U/L (38-126); ANION GAP 13 (5-19); ASPARTATE AMINO TRANSFERASE 27 U/L (14-36); BILIRUBIN,TOTAL 0.4 mg/dL (0.2-1.3); BLOOD UREA NITROGEN 13 mg/dL (7-20); CARBON DIOXIDE 28 mmol/L (22-30); CHLORIDE 104 mmol/L (98-107); GLUCOSE 100 mg/dL (75-110); POTASSIUM 4.5 mmol/L (3.6-5.0); SODIUM 144.5 mmol/L (137-145); TOTAL PROTEIN 6.8 g/dL (6.3-8.2)
== END ==
LOC: OD 13:28
PROVIDERS: ATTEND Internal Medicine Cardiovascular Disease
DX: D69.6 Thrombocytopenia, unspecified (principal); I48.0 Paroxysmal atrial fibrillation; I10 Essential (primary) hypertension; Z79.899 Other long term (current) drug therapy
CPT/HCPCS: 36415; 80048; 80076; 83735; 84443

== ENCOUNTER → 2018-07-02 | Outpatient (CLI) | payer MEDICARE, OTHER ==
[2018-07-02 12:37] LABS: ALANINE AMINOTRANSFERASE 30 U/L (9-52); ALBUMIN 4.2 g/dL (3.5-5.0); ALKALINE PHOSPHATASE 78 U/L (38-126); ANION GAP 8 (5-19); ASPARTATE AMINO TRANSFERASE 27 U/L (14-36); BILIRUBIN,DIRECT 0.1 mg/dL (0.0-0.4); BILIRUBIN,TOTAL 0.4 mg/dL (0.2-1.3); BLOOD UREA NITROGEN 15 mg/dL (7-20); CALCIUM 9.1 mg/dL (8.4-10.2); CARBON DIOXIDE 30 mmol/L (22-30); CHLORIDE 104 mmol/L (98-107); GLUCOSE 89 mg/dL (75-110); POTASSIUM 4.8 mmol/L (3.6-5.0); SODIUM 142.3 mmol/L (137-145); TOTAL PROTEIN 6.7 g/dL (6.3-8.2)
== END ==
LOC: OD 10:57
PROVIDERS: ATTEND Internal Medicine Cardiovascular Disease
DX: I48.0 Paroxysmal atrial fibrillation (principal); Z79.899 Other long term (current) drug therapy
CPT/HCPCS: 36415; 80048; 80076; 83735

== ENCOUNTER → 2018-09-30 | Outpatient (CLI) | payer MEDICARE, OTHER ==
[2018-09-30 17:05] LABS: ALANINE AMINOTRANSFERASE 20 U/L (9-52); ALBUMIN 3.6 g/dL (3.5-5.0); ALKALINE PHOSPHATASE 68 U/L (38-126); ANION GAP 7 (5-19); ASPARTATE AMINO TRANSFERASE 23 U/L (14-36); BILIRUBIN,DIRECT 0.1 mg/dL (0.0-0.4); BILIRUBIN,TOTAL 0.3 mg/dL (0.2-1.3); BLOOD UREA NITROGEN 17 mg/dL (7-20); CALCIUM 8.7 mg/dL (8.4-10.2); CARBON DIOXIDE 28 mmol/L (22-30); CHLORIDE 107 mmol/L (98-107); GLUCOSE 98 mg/dL (75-110); POTASSIUM 4.5 mmol/L (3.6-5.0); SODIUM 141.8 mmol/L (137-145); TOTAL PROTEIN 6.2 g/dL (6.3-8.2)
== END ==
LOC: OD 15:15
PROVIDERS: ATTEND Internal Medicine Cardiovascular Disease
DX: Z79.899 Other long term (current) drug therapy (principal); I48.0 Paroxysmal atrial fibrillation
CPT/HCPCS: 36415; 80048; 80076; 83735

== ENCOUNTER → 2018-10-08 | Outpatient (CLI) | payer MEDICARE, OTHER ==
[2018-10-08 12:24] LABS: CHOLESTEROL 144.64 mg/dL (0-200); TRIGLYCERIDES 121 mg/dL (<150)
[2018-10-08 12:35] LABS: DIRECT LDL 73 mg/dL (<100)
== END ==
LOC: OD 11:01
PROVIDERS: ATTEND Internal Medicine Cardiovascular Disease
DX: E78.00 Pure hypercholesterolemia, unspecified (principal); Z79.899 Other long term (current) drug therapy
CPT/HCPCS: 36415; 80061

== ENCOUNTER → 2018-11-28 | Outpatient (CLI) | payer MEDICARE, OTHER ==
[2018-11-28 10:58] LABS: ALANINE AMINOTRANSFERASE 24 U/L (9-52); ALBUMIN 3.9 g/dL (3.5-5.0); ALKALINE PHOSPHATASE 58 U/L (38-126); ASPARTATE AMINO TRANSFERASE 23 U/L (14-36); BILIRUBIN,DIRECT 0.1 mg/dL (0.0-0.4); BILIRUBIN,TOTAL 0.4 mg/dL (0.2-1.3); TOTAL PROTEIN 6.5 g/dL (6.3-8.2); TRIGLYCERIDES 98 mg/dL (<150)
[2018-11-28 11:09] LABS: DIRECT LDL 58 mg/dL (<100)
== END ==
LOC: OD 09:53
PROVIDERS: ATTEND Physician Assistant
DX: E78.00 Pure hypercholesterolemia, unspecified (principal); Z79.899 Other long term (current) drug therapy
CPT/HCPCS: 36415; 80061; 80076

== ENCOUNTER → 2019-06-29 | Outpatient (CLI) | payer MEDICARE, OTHER ==
[2019-06-29 16:21] LABS: ALBUMIN 4.2 g/dL (3.5-5.0); ALKALINE PHOSPHATASE 51 U/L (38-126); ANION GAP 6 (5-19); ASPARTATE AMINO TRANSFERASE 27 U/L (14-36); BILIRUBIN,TOTAL 0.4 mg/dL (0.2-1.3); BLOOD UREA NITROGEN 15 mg/dL (7-20); CALCIUM 9.1 mg/dL (8.4-10.2); CARBON DIOXIDE 31 mmol/L (22-30); CHLORIDE 104 mmol/L (98-107); GLUCOSE 88 mg/dL (75-110); POTASSIUM 4.8 mmol/L (3.6-5.0); TOTAL PROTEIN 6.9 g/dL (6.3-8.2)
== END ==
LOC: OD 15:00
PROVIDERS: ATTEND Internal Medicine Cardiovascular Disease
DX: I48.0 Paroxysmal atrial fibrillation (principal); Z79.01 Long term (current) use of anticoagulants; Z79.899 Other long term (current) drug therapy
CPT/HCPCS: 36415; 80048; 80076; 83735

== ENCOUNTER 2019-09-24 21:36 | Inpatient (IN) | payer MEDICARE, OTHER ==
--- NOTE | 2019-09-24 23:23 | ER Document Report ---
Entered by EFRA GARNICA SCRIBE 09/24/19 0482 Acting as scribe for:MELLISSA TANNER IV, MD ED General - General Chief Complaint: Fever Stated Complaint: SHORTNESS OF BREATH Time Seen by Provider: 09/24/19 22:06 Mode of Arrival: Wheelchair Information source: Patient Notes: This 78 year old female patient with a past medical history significant for asystole, A fib with RVR, myelodysplasia, and pancytopenia presents to the ED today with complaints of fever and cough for approximately x1 week. Patient states that she had an axillary temperature of 101 today and took 1000 mg Tylenol around 1600. She also notes sinus pressure, nasal congestion, and headache. She reports that she called her PCP today because of the fever and was advised to come to the ED for evaluation, stating that her PCP told her that she shouldn't still have a fever since she was started on antibiotics recently. Patient had a platelet transfusion at [facility] on 09/21/2019. Denies shortness of breath, recent travel, or contact with someone under investigation for COVID-19. TRAVEL OUTSIDE OF THE [place] IN LAST 30 DAYS: No - Related Data Allergies/Adverse Reactions: No Known Allergies Allergy (Verified 09/24/19 22:56) Past Medical History - General Information source: Patient, [facility] Records - Social History Smoking Status: Never Smoker Cigarette use (# per day): No Chew tobacco use (# tins/day): No Smoking Education Provided: No Frequency of alcohol use: None Drug Abuse: None Family History: Reviewed & Not Pertinent, CAD, Malignancy Patient has suicidal ideation: No Patient has homicidal ideation: No - Past Medical History Cardiac Medical History: Reports: Hx Atrial Fibrillation, Hx Hypercholesterolemia, Hx Hypertension Musculoskeletal Medical History: Reports Hx Arthritis Past Surgical History: Reports: Hx Oral Surgery, Hx Pacemaker - Immunizations Immunizations up to date: Yes Hx Diphtheria, Pertussis, Tetanus Vaccination: Yes Hx Pneumococcal Vaccination: 02/29/16 Review of Systems - Review of Systems Constitutional: See HPI, Fever EENT: See HPI, Sinus pressure Cardiovascular: No symptoms reported Respiratory: See HPI, Cough. denies: Short of breath Gastrointestinal: No symptoms reported Genitourinary: No symptoms reported Female Genitourinary: No symptoms reported Musculoskeletal: No symptoms reported Skin: No symptoms reported Hematologic/Lymphatic: No symptoms reported Neurological/Psychological: See HPI, Headaches -: Yes All other systems reviewed and negative Physical Exam - Vital signs Vitals: Resp Pulse Ox 28 H 96 09/24/19 21:53 09/24/19 21:53 Interpretation: Normal - General General appearance: Alert In distress: None - HEENT Head: Normocephalic, Atraumatic Eyes: Normal Pupils: PERRL - Respiratory Respiratory status: No respiratory distress Chest status: Nontender Breath sounds: Normal Chest palpation: Normal - Cardiovascular Rhythm: Regular Heart sounds: Normal auscultation Murmur: No Friction rub: No Gallop: None auscultated - Abdominal Inspection: Normal Distension: No distension Bowel sounds: Normal Tenderness: Nontender - Abdomen soft Organomegaly: No organomegaly - Back Back: Normal, Nontender - Extremities General upper extremity: Normal inspection General lower extremity: Normal inspection - Neurological Neuro grossly intact: Yes - Psychological Associated symptoms: Normal affect, Normal mood - Skin Skin Temperature: Warm Skin Moisture: Dry Skin Color: Normal Course - Re-evaluation Re-evalutation: 09/25/19 01:56 Results of ED MSE discussed with patient. All questions were answered. Patient was informed that she would be admitted for IV antibiotics and platelet transfusion. - Vital Signs Vital signs: Temp Pulse Resp BP Pulse Ox 99.4 F 24 H 147/65 H 95 09/24/19 22:02 09/25/19 01:00 09/25/19 00:01 09/25/19 01:00 - Laboratory Result Diagrams: 09/24/19 23:03 09/24/19 23:03 Laboratory results interpreted by me: 09/24/19 09/24/19 09/24/19 23:03 23:03 23:03 RBC 1.94 L Hgb 6.9 L Hct 19.4 L MCV 100 H MCH 35.5 H RDW 18.9 H Plt Count 5 L* Seg Neuts % (Manual) 2 L Monocytes % (Manual) 46 H Metamyelocytes % 2 H Immature Leukocytes % 3 H Abs Neuts (Manual) 0.3 L Abs Monocytes (Manual) 3.0 H PT 16.5 H VBG pH Sodium 135.8 L Potassium 3.5 L Creatinine 0.46 L Glucose 152 H Calcium 8.2 L Albumin 3.4 L 09/24/19 23:03 RBC Hgb Hct MCV MCH RDW Plt Count Seg Neuts % (Manual) Monocytes % (Manual) Metamyelocytes % Immature Leukocytes % Abs Neuts (Manual) Abs Monocytes (Manual) PT VBG pH 7.45 H Sodium Potassium Creatinine Glucose Calcium Albumin - EKG Interpretation by Me Additional EKG results interpreted by me: 09/25/19 01:56 EKG obtained on 09/24/2019 at 2330 hrs. was interpreted by this MD. Findings: Sinus rhythm, rate 79, normal axis, P waves proceed QRS complexes, QRS complexes appear narrow, no obvious patterns of ST segment elevation or depression are seen. Impression normal sinus rhythm with nonspecific ST segments. 09/25/19 02:04 09/25/19 02:11 - Consults dr. ruiz Time consulted: 00:52 - dr ruiz agreed to accept pt for admission, requested covid testing Reason for consultation: 09/25/19 02:14 admission for iv abx, platelet transfusion Consulted provider: will see as inpatient dr. pacheco Time consulted: 00:45 - recommended admission, iv cefepime, platelet transfusion Reason for consultation: 09/25/19 02:15 neutropenia, fever, thrombocytopenia Discharge - Discharge Clinical Impression: Fever and neutropenia, Thrombocytopenia Condition: Good Disposition: ADMITTED INPATIENT Admitting Provider: Francisco (Hospitalist) Unit Admitted: IMCU I personally performed the services described in the documentation, reviewed and edited the documentation which was dictated to the scribe in my presence, and it accurately records my words and actions.
[2019-09-24 23:26] LABS: VENOUS BLOOD BASE EXCESS -0.3 mmol/L; VENOUS BLOOD HCO3 23.5 mmol/L (20-32); VENOUS BLOOD PH 7.45 (7.30-7.42)
[2019-09-24 23:41] LABS: HEMATOCRIT 19.4 % (36.0-47.0); MEAN CORPUSCULAR HEMOGLOBIN 35.5 pg (27.0-33.4); MEAN CORPUSCULAR HGB CONC 35.6 g/dL (32.0-36.0); MEAN CORPUSCULAR VOLUME 100 fl (80-97); RED BLOOD COUNT 1.94 10^6/uL (3.72-5.28); RED CELL DISTRIBUTION WIDTH 18.9 % (11.5-14.0); WHITE BLOOD COUNT 6.6 10^3/uL (4.0-10.5)
[2019-09-24 23:43] LABS: ALBUMIN 3.4 g/dL (3.5-5.0); ALKALINE PHOSPHATASE 50 U/L (38-126); ANION GAP 8 (5-19); ASPARTATE AMINO TRANSFERASE 36 U/L (14-36); BILIRUBIN,TOTAL 0.6 mg/dL (0.2-1.3); BLOOD UREA NITROGEN 8 mg/dL (7-20); CALCIUM 8.2 mg/dL (8.4-10.2); CARBON DIOXIDE 25 mmol/L (22-30); CHLORIDE 103 mmol/L (98-107); GLUCOSE 152 mg/dL (75-110); POTASSIUM 3.5 mmol/L (3.6-5.0); TOTAL PROTEIN 6.7 g/dL (6.3-8.2)
--- NOTE | 2019-09-24 23:53 | RADIOLOGY REPORT (SQ) ---
XR CHEST 1 VIEW EXAM DATE: 09/24/2019 10:38 PM CDT HISTORY: Cough, fever. COMPARISON: 04/15/2019 FINDINGS: The heart size is within normal limits without pulmonary vascular congestion. Stable dual-lead left chest wall pacemaker. No consolidation, pleural effusion, or pneumothorax is seen. The bony structures are intact. IMPRESSION: No evidence of acute cardiopulmonary disease.
[2019-09-24] MEDS ORDERED: NORMAL SALINE 500 ML IV ONE (23:59)
[2019-09-25 00:01] LABS: INTERNATIONAL RATION (INR) 1.32; PROTHROMBIN TIME 16.5 SEC (11.4-15.4)
[2019-09-25 00:16] LABS: ABSOLUTE LYMPHOCYTES# (MANUAL) 3.1 10^3/uL (0.5-4.7); BASOPHILS % (MANUAL) 0 % (0-2); EOSINOPHILS % (MANUAL) 0 % (0-6); LYMPHOCYTES % (MANUAL) 44 % (13-45); SEGMENTED NEUTROPHILS % (MAN) 2 % (42-78); TOTAL CELLS COUNTED 100
[2019-09-25 00:21] LABS: IMMATURE MONONUCLEAR% (MANUAL) 3 % (0); METAMYELOCYTES % (MANUAL) 2 % (0-1); MONOCYTES % (MANUAL) 46 % (3-13)
[2019-09-25 00:24] LABS: ANISOCYTOSIS 1+; OVALOCYTES 1+; PLATELET COMMENT DECREASED; POIKILOCYTOSIS 1+
[2019-09-25 00:27] LABS: HEMOGLOBIN 6.9 g/dL (12.0-15.5); PLATELET COUNT 5 10^3/uL (150-450)
[2019-09-25] MEDS ORDERED: NORMAL SALINE 250 ML IV PRN (00:43)
[2019-09-25] MEDS ORDERED: CEFEPIME 2 GM/D5W RTU 2 GM/50 ML RTUPB IV ONE (00:43)
[2019-09-25] MEDS ORDERED: MAG HYDROX/AL HYDROX/SIMETH SUSP 30 ML UDCUP PO PRN (00:53)
[2019-09-25] MEDS ORDERED: IPRATROPIUM/ALBUTEROL 0.5-2.5 MG/3 ML AMPUL NEB PRN (00:53)
[2019-09-25] MEDS: ACETAMINOPHEN 325 MG TABLET PO PRN ×3 (01:30→10:15)
[2019-09-25] MEDS: NORMAL SALINE 1000 ML 1,000 ML IV PRN ×2 (04:20→09:40)
[2019-09-25 04:40] LABS: APPEARANCE,URINE CLEAR; BILIRUBIN,URINE NEGATIVE (NEGATIVE); COLOR,URINE YELLOW; GLUCOSE, URINE NEGATIVE (NEGATIVE); KETONES,URINE NEGATIVE (NEGATIVE); PROTEIN,URINE 100 mg/dL (NEGATIVE); URINE SPECIFIC GRAVITY 1.011; UROBILINOGEN,URINE NEGATIVE mg/dL (<2.0)
[2019-09-25] MEDS ORDERED: FUROSEMIDE INJ/PF 20 MG/2 ML SDV IV PRN (05:00)
[2019-09-25 05:46] LABS: HEMATOCRIT 17.1 % (36.0-47.0); MEAN CORPUSCULAR HEMOGLOBIN 35.3 pg (27.0-33.4); MEAN CORPUSCULAR HGB CONC 35.8 g/dL (32.0-36.0); MEAN CORPUSCULAR VOLUME 99 fl (80-97); RED BLOOD COUNT 1.74 10^6/uL (3.72-5.28); RED CELL DISTRIBUTION WIDTH 19.1 % (11.5-14.0); WHITE BLOOD COUNT 6.4 10^3/uL (4.0-10.5)
[2019-09-25] MEDS ORDERED: HEPARIN SOD (PORCINE) 5,000 UNIT/ML 1 ML VIAL SUBCUT SCH (06:00)
--- NOTE | 2019-09-25 06:23 | PDOC H&P ---
History of Present Illness Admission Date/PCP: 09/25/19 01:08 RAKAN HUTTON MD Patient complains of: Fever and shortness of breath History of Present Illness: PHOEBE SOSA is a 78 year old female with a past medical history of atrial fibrillation with RVR status post permanent pacemaker, myelodysplasia with pancytopenia under the care of rides supervisor oncologist Dr. Valdez. She presents after 1 week of intermittent fever and cough which prompted evaluation by primary care provider who initiated empiric antibiotics thought to be Levaquin. She has had persistent headache sinus congestion cough shortness of breath and a fever today of 101.0 prompting evaluation the emergency department where she is found to have pancytopenia with a platelet count of only 5. She denies bleeding. Oncology is consulted recommending admission with cefepime and platelet transfusion. She is referred to the hospitalist for admission. Past Medical History Cardiac Medical History: Reports: Atrial Fibrillation, Hyperlipidema, Hypertension Denies: Congestive Heart Failure, Myocardial Infarction Pulmonary Medical History: Denies: Asthma, Bronchitis, Chronic Obstructive Pulmonary Disease (COPD), Pneumonia, Tuberculosis Neurological Medical History: Denies: Seizures Renal/ Medical History: Denies: End Stage Renal Disease GI Medical History: Denies: Cirrhosis, Gastroesophageal Reflux Disease Musculoskeltal Medical History: Reports: Arthritis Psychiatric Medical History: Denies: Bipolar Disorder, Depression Hematology: Reports: Anemia Denies: Bleeding Tendencies Past Surgical History Past Surgical History: Reports: Pacemaker Social History Information Source: Patient, Emergency Med Personnel, [facility] Records Smoking Status: Never Smoker Frequency of Alcohol Use: None Hx Recreational Drug Use: No Drugs: None Hx Prescription Drug Abuse: No - Advance Directive Resuscitation Status: Full Code Family History Family History: CAD, Malignancy Parental Family History Reviewed: Yes Children Family History Reviewed: Yes Sibling(s) Family History Reviewed.: Yes Medication/Allergy Home Medications: Atorvastatin Calcium [Lipitor 40 mg Tablet] 40 mg PO DAILY 04/13/19 Benzonatate [Tessalon Perles 100 mg Capsule] 100 mg PO Q8HP PRN 04/13/19 Fluticasone Propionate [Flonase Nasal [place] 50 Mcg/[place] 16 gm] 1 spray NASL DAILY 04/13/19 Loratadine [Claritin 10 mg Tablet] 10 mg PO DAILY 04/13/19 Lorazepam [Ativan 1 mg Tablet] 1 mg PO BID 04/13/19 Sotalol HCl [Sotalol AF] 120 mg PO Q12 04/13/19 Levofloxacin [Levaquin 500 mg Tablet] 500 mg PO DAILY 4 Days #4 tablet 04/21/19 Allergies/Adverse Reactions: No Known Allergies Allergy (Verified 09/24/19 22:56) Review of Systems Constitutional: PRESENT: as per HPI, fatigue, fever(s). ABSENT: chills, headach e(s), weight gain, weight loss Eyes: ABSENT: visual disturbances Ears: ABSENT: hearing changes Nose, Mouth, and Throat: PRESENT: as per HPI, other - Sinus congestion Cardiovascular: ABSENT: chest pain, dyspnea on exertion, edema, orthropnea, palpitations Respiratory: PRESENT: as per HPI, cough, sputum. ABSENT: hemoptysis Gastrointestinal: ABSENT: abdominal pain, constipation, diarrhea, hematemesis, hematochezia, nausea, vomiting Genitourinary: ABSENT: dysuria, hematuria Musculoskeletal: ABSENT: joint swelling Integumentary: ABSENT: rash, wounds Neurological: ABSENT: abnormal gait, abnormal speech, confusion, dizziness, focal weakness, syncope Psychiatric: ABSENT: anxiety, depression, homidical ideation, suicidal ideation Endocrine: ABSENT: cold intolerance, heat intolerance, polydipsia, polyuria Hematologic/Lymphatic: ABSENT: easy bleeding, easy bruising Physical Exam Vital Signs: Temp Pulse Resp BP Pulse Ox 98.8 F 85 24 H 123/45 L 95 09/25/19 04:23 09/25/19 04:23 09/25/19 04:23 09/25/19 04:23 09/25/19 04:23 Intake & Output 09/23/19 09/24/19 09/25/19 11:59 11:59 11:59 Intake Total 550 Balance 550 Weight 71.1 kg General appearance: PRESENT: cooperative, mild distress, well-developed, well- nourished Head exam: PRESENT: atraumatic, normocephalic Eye exam: PRESENT: conjunctiva pink, EOMI, PERRLA. ABSENT: scleral icterus Ear exam: PRESENT: normal external ear exam Mouth exam: PRESENT: moist, tongue midline Throat exam: PRESENT: post pharyngeal erythema Neck exam: ABSENT: carotid bruit, JVD, lymphadenopathy, thyromegaly Respiratory exam: PRESENT: crackles, symmetrical, tachypnea. ABSENT: chest wall tenderness, rales, rhonchi, wheezes Cardiovascular exam: PRESENT: RRR. ABSENT: diastolic murmur, rubs, systolic mu rmur Pulses: PRESENT: normal dorsalis pedis pul Vascular exam: PRESENT: normal capillary refill GI/Abdominal exam: PRESENT: normal bowel sounds, soft. ABSENT: distended, guarding, mass, organolmegaly, rebound, tenderness Rectal exam: PRESENT: deferred Extremities exam: PRESENT: full ROM. ABSENT: calf tenderness, clubbing, pedal edema Neurological exam: PRESENT: alert, awake, oriented to person, oriented to place, oriented to time, oriented to situation, CN II-XII grossly intact. ABSENT: motor sensory deficit Psychiatric exam: PRESENT: anxious, appropriate affect, normal mood. ABSENT: homicidal ideation, suicidal ideation Skin exam: PRESENT: dry, intact, warm. ABSENT: cyanosis, rash Results Laboratory Results: 09/24/19 23:03 09/24/19 09/24/19 09/24/19 23:03 23:03 23:03 WBC 6.6 RBC 1.94 L Hgb 6.9 L Hct 19.4 L MCV 100 H MCH 35.5 H MCHC 35.6 RDW 18.9 H Plt Count 5 L* Seg Neutrophils % Not Reportable VBG pH 7.45 H VBG pCO2 35.0 VBG HCO3 23.5 VBG Base Excess -0.3 Sodium 135.8 L Potassium 3.5 L Chloride 103 Carbon Dioxide 25 Anion Gap 8 BUN 8 Creatinine 0.46 L Est GFR ( Amer) > 60 Glucose 152 H Lactic Acid Calcium 8.2 L Total Bilirubin 0.6 AST 36 Alkaline Phosphatase 50 Total Protein 6.7 Albumin 3.4 L Urine Color Urine Appearance Urine pH Ur Specific [place] Urine Protein Urine Glucose (UA) Urine Ketones Urine Blood Urine RBC (Auto) Blood Type 09/24/19 09/25/19 09/25/19 23:03 02:40 03:55 WBC RBC Hgb Hct MCV MCH MCHC RDW Plt Count Seg Neutrophils % VBG pH VBG pCO2 VBG HCO3 VBG Base Excess Sodium Potassium Chloride Carbon Dioxide Anion Gap BUN Creatinine Est GFR ( Amer) Glucose Lactic Acid 2.0 Calcium Total Bilirubin AST Alkaline Phosphatase Total Protein Albumin Urine Color YELLOW Urine Appearance CLEAR Urine pH 7.0 Ur Specific [place] 1.011 Urine Protein 100 H Urine Glucose (UA) NEGATIVE Urine Ketones NEGATIVE Urine Blood LARGE H Urine RBC (Auto) 36 Blood Type A POSITIVE Impressions: Chest X-Ray 09/24/19 22:38 IMPRESSION: No evidence of acute cardiopulmonary disease. Assessment and Plan - Diagnosis (1) Neutropenia with fever Is this a current diagnosis for this admission?: Yes Plan: Complicated by myelodysplasia, platelet transfusion ordered, continue cefepime follow-up CBC COVID labs and blood culture (2) Thrombocytopenia Is this a current diagnosis for this admission?: Yes Plan: Platelet transfusion ordered, follow-up CBC (3) Sinusitis Qualifiers: Sinusitis location: maxillary Chronicity: acute Recurrence: not specified as recurrent Qualified Code(s): J01.00 - Acute maxillary sinusitis, unspecified Is this a current diagnosis for this admission?: Yes Plan: Incentive spirometry, Flonase, empiric antibiotics, follow-up blood culture and CBC (4) Suspected COVID-19 virus infection Is this a current diagnosis for this admission?: Yes Plan: COVID isolation, symptomatic management, follow-up COVID labs - Time Time Spent with patient: 25-34 minutes - Inpatient Certification Medical Necessity: Need Close Monitoring Due to Risk of Patient Decompensation
[2019-09-25 06:39] LABS: HEMOGLOBIN 6.1 g/dL (12.0-15.5); PLATELET COUNT 5 10^3/uL (150-450)
[2019-09-25 06:41] LABS: ABSOLUTE LYMPHOCYTES# (MANUAL) 2.3 10^3/uL (0.5-4.7); ABSOLUTE MONOCYTES # (MANUAL) 3.6 10^3/uL (0.1-1.4); BASOPHILS % (MANUAL) 0 % (0-2); EOSINOPHILS % (MANUAL) 0 % (0-6); LYMPHOCYTES % (MANUAL) 36 % (13-45); METAMYELOCYTES % (MANUAL) 1 % (0-1); MONOCYTES % (MANUAL) 57 % (3-13); MYELOCYTES % (MANUAL) 1 % (0); SEGMENTED NEUTROPHILS % (MAN) 5 % (42-78); TOTAL CELLS COUNTED 100
[2019-09-25 06:42] LABS: ANISOCYTOSIS 2+; OVALOCYTES SLIGHT; PLATELET COMMENT DECREASED; TEAR DROP CELLS SLIGHT
--- NOTE | 2019-09-25 08:34 | EKG REPORT ---
SEVERITY:- ABNORMAL ECG - SINUS RHYTHM PROBABLE LEFT ATRIAL ABNORMALITY LEFT VENTRICULAR HYPERTROPHY BORDERLINE T ABNORMALITIES, INFERIOR LEADS BORDERLINE PROLONGED QT INTERVAL : Confirmed by: Jeannine Sadler 25-Sep-2019 08:34:08
--- NOTE | 2019-09-25 08:34 | PDOC CONSULTATION ---
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 As an outpt she did have neutropenic fever and we attempted outpt rx w/ both levaquin followed by recent initiation of Ceftin but the fevers and weakness worsened and pt was brought to ED. Pt was hypotensive and tachycardic and had fever on admit. She has hb of 6, plt ct only of 5, ANC <500, has received cefepime and 1 unit plt so far. Past Medical History Cardiac Medical History: Reports: Atrial Fibrillation, Hyperlipidema, Hypertension Denies: Congestive Heart Failure, Myocardial Infarction Pulmonary Medical History: Denies: Asthma, Bronchitis, Chronic Obstructive Pulmonary Disease (COPD), Pneumonia, Tuberculosis Neurological Medical History: Denies: Seizures Renal/ Medical History: Denies: End Stage Renal Disease GI Medical History: Denies: Cirrhosis, Gastroesophageal Reflux Disease Musculoskeltal Medical History: Reports: Arthritis Psychiatric Medical History: Denies: Bipolar Disorder, Depression Hematology: Reports: Anemia Denies: Bleeding Tendencies Past Surgical History Past Surgical History: Reports: Pacemaker Social History Smoking Status: Never Smoker Frequency of Alcohol Use: None Hx Recreational Drug Use: No Drugs: None Hx Prescription Drug Abuse: No - Advance Directive Resuscitation Status: Full Code Family History Family History: CAD, Malignancy Parental Family History Reviewed: Yes Children Family History Reviewed: Yes Sibling(s) Family History Reviewed.: Yes Medication/Allergy Home Medications: Loratadine [Claritin 10 mg Tablet] 10 mg PO DAILY 04/13/19 Lorazepam [Ativan 1 mg Tablet] 1 mg PO TIDP PRN 04/13/19 Sotalol HCl [Sotalol AF] 120 mg PO Q12 04/13/19 Apixaban [Eliquis 5 mg Tablet] 5 mg PO BID 09/25/19 Chlorhexidine Gluconate [Periogard 0.12% Oral Rinse 15 ml] 15 ml MM BIDP PRN 09/25/19 Montelukast Sodium [Singulair 10 mg Tablet] 10 mg PO QHS 09/25/19 Allergies/Adverse Reactions: No Known Allergies Allergy (Verified 09/24/19 22:56) Review of Systems Constitutional: ABSENT: chills, fever(s), headache(s), weight gain, weight loss Eyes: ABSENT: visual disturbances Ears: ABSENT: hearing changes Cardiovascular: ABSENT: chest pain, dyspnea on exertion, edema, orthropnea, palpitations Respiratory: ABSENT: cough, hemoptysis Gastrointestinal: ABSENT: abdominal pain, constipation, diarrhea, hematemesis, hematochezia, nausea, vomiting Genitourinary: ABSENT: dysuria, hematuria Musculoskeletal: ABSENT: joint swelling Integumentary: ABSENT: rash, wounds Neurological: ABSENT: abnormal gait, abnormal speech, confusion, dizziness, fo martin weakness, syncope Psychiatric: ABSENT: anxiety, depression, homidical ideation, suicidal ideation Endocrine: ABSENT: cold intolerance, heat intolerance, polydipsia, polyuria Hematologic/Lymphatic: ABSENT: easy bleeding, easy bruising Physical Exam Vital Signs: Temp Pulse Resp BP Pulse Ox 98.6 F 76 25 H 114/41 L 97 09/25/19 06:45 09/25/19 07:00 09/25/19 06:45 09/25/19 06:45 09/25/19 06:45 Intake & Output 09/24/19 09/25/19 09/26/19 06:59 06:59 06:59 Intake Total 650 Output Total 250 Balance 400 Weight 71.1 kg Results Laboratory Results: 09/25/19 05:15 09/24/19 23:03 09/24/19 09/24/19 09/24/19 23:03 23:03 23:03 WBC 6.6 RBC 1.94 L Hgb 6.9 L Hct 19.4 L MCV 100 H MCH 35.5 H MCHC 35.6 RDW 18.9 H Plt Count 5 L* Seg Neutrophils % Not Reportable VBG pH 7.45 H VBG pCO2 35.0 VBG HCO3 23.5 VBG Base Excess -0.3 Sodium 135.8 L Potassium 3.5 L Chloride 103 Carbon Dioxide 25 Anion Gap 8 BUN 8 Creatinine 0.46 L Est GFR ( Amer) > 60 Glucose 152 H Lactic Acid Calcium 8.2 L Total Bilirubin 0.6 AST 36 Alkaline Phosphatase 50 Total Protein 6.7 Albumin 3.4 L Urine Color Urine Appearance Urine pH Ur Specific [place] Urine Protein Urine Glucose (UA) Urine Ketones Urine Blood Urine RBC (Auto) Blood Type 09/24/19 09/25/19 09/25/19 23:03 02:40 03:55 WBC RBC Hgb Hct MCV MCH MCHC RDW Plt Count Seg Neutrophils % VBG pH VBG pCO2 VBG HCO3 VBG Base Excess Sodium Potassium Chloride Carbon Dioxide Anion Gap BUN Creatinine Est GFR ( Amer) Glucose Lactic Acid 2.0 Calcium Total Bilirubin AST Alkaline Phosphatase Total Protein Albumin Urine Color YELLOW Urine Appearance CLEAR Urine pH 7.0 Ur Specific [place] 1.011 Urine Protein 100 H Urine Glucose (UA) NEGATIVE Urine Ketones NEGATIVE Urine Blood LARGE H Urine RBC (Auto) 36 Blood Type A POSITIVE 09/25/19 05:15 WBC 6.4 RBC 1.74 L Hgb 6.1 L Hct 17.1 L MCV 99 H MCH 35.3 H MCHC 35.8 RDW 19.1 H Plt Count 5 L* Seg Neutrophils % Not Reportable VBG pH VBG pCO2 VBG HCO3 VBG Base Excess Sodium Potassium Chloride Carbon Dioxide Anion Gap BUN Creatinine Est GFR ( Amer) Glucose Lactic Acid Calcium Total Bilirubin AST Alkaline Phosphatase Total Protein Albumin Urine Color Urine Appearance Urine pH Ur Specific [place] Urine Protein Urine Glucose (UA) Urine Ketones Urine Blood Urine RBC (Auto) Blood Type Impressions: Chest X-Ray 09/24/19 22:38 IMPRESSION: No evidence of acute cardiopulmonary disease. Assessment & Plan - Diagnosis (1) Neutropenia with fever Is this a current diagnosis for this admission?: Yes Plan: Pancytopenia 2nd to MDS/AML, I increased cefepime to 2g IV q 8 hours. Usually would add vanc to regimen until cultures neg x 48 hr but fevers have already devervesed after just 1 dose of cefepime so likely g- issue if bacterial cause. Con't cefepime until fevers neg x 48 hours (2) Pancytopenia Is this a current diagnosis for this admission?: Yes Plan: Given 1 unit plt already, may need another unit if plt ct does not improved >10, will give 2 units PRBC also today - Time Time Spent: 50 to 70 Minutes
[2019-09-25] MEDS ORDERED: AZITHROMYCIN INJ 500 MG VIAL IV ONE (08:39)
[2019-09-25] MEDS: CEFEPIME HCL 2 GM in DEXTROSE 5%-WATER 50 ML IV SCH ×2 (09:34→17:07)
[2019-09-25] MEDS ORDERED: AZITHROMYCIN 500 MG in DEXTROSE 5%-WATER 250 ML IV ONE (10:00)
[2019-09-25] MEDS ORDERED: CEFEPIME 1 GM/D5W RTU 1 GM/50 ML RTUPB IV SCH (10:00)
[2019-09-25] MEDS: DIPHENHYDRAMINE HCL 25 MG CAPSULE PO PRN ×2 (10:13→10:15)
[2019-09-25] MEDS ORDERED: SOTALOL HCL 80 MG TABLET PO ONE (16:18)
[2019-09-25] MEDS ORDERED: LORAZEPAM 1 MG TABLET PO PRN (16:18)
[2019-09-25] MEDS ORDERED: NITROGLYCERIN 0.4 MG/TAB 25 TAB/BOTTLE SL PRN (16:18)
[2019-09-25] MEDS ORDERED: METOPROLOL TARTRATE PF/INJ 5 MG/5 ML SDV IV ONE (16:24)
[2019-09-25 20:16] LABS: HEMATOCRIT 25.9 % (36.0-47.0); MEAN CORPUSCULAR HEMOGLOBIN 33.3 pg (27.0-33.4); MEAN CORPUSCULAR HGB CONC 35.9 g/dL (32.0-36.0); RED BLOOD COUNT 2.79 10^6/uL (3.72-5.28); RED CELL DISTRIBUTION WIDTH 17.2 % (11.5-14.0); WHITE BLOOD COUNT 6.4 10^3/uL (4.0-10.5)
[2019-09-25 20:37] LABS: HEMOGLOBIN 9.3 g/dL (12.0-15.5); MEAN CORPUSCULAR VOLUME 93 fl (80-97)
[2019-09-25 20:40] LABS: PLATELET COUNT 5 10^3/uL (150-450)
--- NOTE | 2019-09-25 21:42 | EKG REPORT ---
SEVERITY:- ABNORMAL ECG - ATRIAL FIBRILLATION LVH WITH SECONDARY REPOLARIZATION ABNORMALITY BORDERLINE PROLONGED QT INTERVAL : Confirmed by: Adrianne Camacho MD 25-Sep-2019 21:41:10
[2019-09-25] MEDS: MONTELUKAST SODIUM 10 MG TABLET PO SCH (22:33)
[2019-09-25] MEDS: METOPROLOL TARTRATE PF/INJ 5 MG/5 ML SDV IV PRN (23:42)
[2019-09-26] MEDS ORDERED: SOTALOL HCL 80 MG TABLET PO ONE (02:00)
[2019-09-26] MEDS ORDERED: METOPROLOL TARTRATE PF/INJ 5 MG/5 ML SDV IV ONE (02:00)
[2019-09-26] MEDS: CEFEPIME HCL 2 GM in DEXTROSE 5%-WATER 50 ML IV SCH ×3 (02:18→18:22)
[2019-09-26 04:39] LABS: HEMATOCRIT 22.8 % (36.0-47.0); HEMOGLOBIN 8.3 g/dL (12.0-15.5); MEAN CORPUSCULAR HEMOGLOBIN 33.5 pg (27.0-33.4); MEAN CORPUSCULAR HGB CONC 36.6 g/dL (32.0-36.0); MEAN CORPUSCULAR VOLUME 92 fl (80-97); RED BLOOD COUNT 2.49 10^6/uL (3.72-5.28); RED CELL DISTRIBUTION WIDTH 17.8 % (11.5-14.0); WHITE BLOOD COUNT 9.1 10^3/uL (4.0-10.5)
[2019-09-26 04:52] LABS: ANION GAP 7 (5-19); BLOOD UREA NITROGEN 12 mg/dL (7-20); CALCIUM 7.7 mg/dL (8.4-10.2); CARBON DIOXIDE 22 mmol/L (22-30); CHLORIDE 108 mmol/L (98-107); GLUCOSE 105 mg/dL (75-110); POTASSIUM 3.4 mmol/L (3.6-5.0)
[2019-09-26 05:48] LABS: ABSOLUTE LYMPHOCYTES# (MANUAL) 2.8 10^3/uL (0.5-4.7); ABSOLUTE MONOCYTES # (MANUAL) 5.9 10^3/uL (0.1-1.4); BASOPHILS % (MANUAL) 0 % (0-2); EOSINOPHILS % (MANUAL) 0 % (0-6); LYMPHOCYTES % (MANUAL) 31 % (13-45); METAMYELOCYTES % (MANUAL) 1 % (0-1); MONOCYTES % (MANUAL) 65 % (3-13); NUCLEATED RED BLOOD CELLS 2 /100 WBC (0); SEGMENTED NEUTROPHILS % (MAN) 3 % (42-78); TOTAL CELLS COUNTED 100
[2019-09-26 05:50] LABS: ANISOCYTOSIS 1+; PLATELET COMMENT DECREASED; POLYCHROMASIA SLIGHT; SCHISTOCYTES SLIGHT; TOXIC GRANULATION SLIGHT; TOXIC VACUOLATION PRESENT
[2019-09-26 05:51] LABS: PLATELET COUNT 6 10^3/uL (150-450)
[2019-09-26] MEDS: METOPROLOL TARTRATE PF/INJ 5 MG/5 ML SDV IV PRN ×3 (08:00→18:22)
--- NOTE | 2019-09-26 09:47 | PDOC PROGRESS REPORT ---
Subjective Progress Note for:: 09/26/19 Subjective:: Pt overall seems better per nursing today Reason For Visit: NEUTROPENIA,FEVER,PANCYTOPENIA Physical Exam Vital Signs: Temp Pulse Resp BP Pulse Ox 99.9 F 132 H 22 H 128/81 H 94 09/26/19 07:59 09/26/19 07:59 09/26/19 07:59 09/26/19 07:59 09/26/19 07:59 Intake & Output 09/25/19 09/26/19 09/27/19 06:59 06:59 06:59 Intake Total 650 4683 Output Total 250 2900 Balance 400 1783 Weight 71.1 kg 73.4 kg Results Laboratory Results: 09/26/19 04:24 09/26/19 04:24 09/25/19 09/25/19 09/26/19 02:40 20:00 04:24 WBC 6.4 9.1 RBC 2.79 L 2.49 L Hgb 9.3 L D 8.3 L Hct 25.9 L 22.8 L MCV 93 D 92 MCH 33.3 33.5 H MCHC 35.9 36.6 H RDW 17.2 H 17.8 H Plt Count 5 L* 6 L* Seg Neutrophils % Not Reportable Sodium Potassium Chloride Carbon Dioxide Anion Gap BUN Creatinine Est GFR ( Amer) Glucose Calcium Blood Type A POSITIVE Antibody Screen NEGATIVE 09/26/19 04:24 WBC RBC Hgb Hct MCV MCH MCHC RDW Plt Count Seg Neutrophils % Sodium 136.9 L Potassium 3.4 L Chloride 108 H Carbon Dioxide 22 Anion Gap 7 BUN 12 Creatinine 0.43 L Est GFR ( Amer) > 60 Glucose 105 Calcium 7.7 L Blood Type Antibody Screen Impressions: Chest X-Ray 09/24/19 22:38 IMPRESSION: No evidence of acute cardiopulmonary disease. Assessment & Plan - Diagnosis (1) Neutropenia with fever Is this a current diagnosis for this admission?: Yes Plan: Improved, low grade fever continued, cont w/ current atbx for now (2) Pancytopenia Is this a current diagnosis for this admission?: Yes Plan: plt ct still 5K today, give another unit plt today, hb ok for now, next cbc tomorrow. - Time Time Spent with patient: 15-24 minutes
[2019-09-26] MEDS ORDERED: AZITHROMYCIN 250 MG in DEXTROSE 5%-WATER 250 ML IV SCH (10:00)
[2019-09-26] MEDS ORDERED: AZITHROMYCIN IV SCH (10:00)
[2019-09-26] MEDS ORDERED: DEXTROSE 5% IV SCH (10:00)
[2019-09-26] MEDS ORDERED: AZITHROMYCIN INJ 500 MG VIAL IV SCH (10:00)
[2019-09-26] MEDS ORDERED: WATER IV SCH (10:00)
[2019-09-26] MEDS ORDERED: DIPHENHYDRAMINE HCL 25 MG CAPSULE PO PRN (10:17)
[2019-09-26] MEDS ORDERED: ACETAMINOPHEN 325 MG TABLET PO PRN (10:18)
[2019-09-26] MEDS: SOTALOL HCL 80 MG TABLET PO SCH ×2 (10:38→22:47)
[2019-09-26] MEDS: LORATADINE 10 MG TABLET PO SCH (10:53)
[2019-09-26] MEDS: CALCIUM CARBONATE 600 MG TABLET PO SCH (10:53)
[2019-09-26] MEDS: ASCORBIC ACID 500 MG TABLET PO SCH (10:53)
--- NOTE | 2019-09-26 12:53 | PDOC PROGRESS REPORT ---
Subjective Progress Note for:: 09/26/19 Subjective:: Patient states that her breathing is improved. She still short of breath. COVID test is negative so she was moved out of the COVID unit. Patient was found to be tachycardic however she had been taking off her sotalol and this was restarted during the night Reason For Visit: NEUTROPENIA,FEVER,PANCYTOPENIA Physical Exam Vital Signs: Temp Pulse Resp BP Pulse Ox 99.9 F 132 H 22 H 128/81 H 94 09/26/19 07:59 09/26/19 07:59 09/26/19 07:59 09/26/19 07:59 09/26/19 07:59 Intake & Output 09/25/19 09/26/19 09/27/19 06:59 06:59 06:59 Intake Total 650 4683 Output Total 250 2900 Balance 400 1783 Weight 71.1 kg 73.4 kg General appearance: PRESENT: no acute distress, other - mildly tachypneic Head exam: PRESENT: atraumatic, normocephalic Eye exam: PRESENT: conjunctiva pink, EOMI, PERRLA. ABSENT: scleral icterus Ear exam: PRESENT: normal external ear exam Mouth exam: PRESENT: moist, tongue midline Neck exam: ABSENT: carotid bruit, JVD, lymphadenopathy, thyromegaly Respiratory exam: PRESENT: clear to auscultation chapo. ABSENT: rales, rhonchi, wheezes Cardiovascular exam: PRESENT: irregular rhythm, +S1, +S2, tachycardia. ABSENT: diastolic murmur, rubs, systolic murmur Pulses: PRESENT: normal dorsalis pedis pul Vascular exam: PRESENT: normal capillary refill GI/Abdominal exam: PRESENT: normal bowel sounds, soft. ABSENT: distended, guarding, mass, organolmegaly, rebound, tenderness Rectal exam: PRESENT: deferred Extremities exam: PRESENT: full ROM. ABSENT: calf tenderness, clubbing, pedal edema Neurological exam: PRESENT: alert, awake, oriented to person, oriented to place, oriented to time, oriented to situation, CN II-XII grossly intact. ABSENT: motor sensory deficit Psychiatric exam: PRESENT: appropriate affect, normal mood. ABSENT: homicidal ideation, suicidal ideation Skin exam: PRESENT: dry, intact, warm. ABSENT: cyanosis, rash Results Laboratory Results: 09/26/19 04:24 09/26/19 04:24 09/25/19 09/25/19 09/26/19 02:40 20:00 04:24 WBC 6.4 9.1 RBC 2.79 L 2.49 L Hgb 9.3 L D 8.3 L Hct 25.9 L 22.8 L MCV 93 D 92 MCH 33.3 33.5 H MCHC 35.9 36.6 H RDW 17.2 H 17.8 H Plt Count 5 L* 6 L* Seg Neutrophils % Not Reportable Sodium Potassium Chloride Carbon Dioxide Anion Gap BUN Creatinine Est GFR ( Amer) Glucose Calcium Blood Type A POSITIVE Antibody Screen NEGATIVE 09/26/19 04:24 WBC RBC Hgb Hct MCV MCH MCHC RDW Plt Count Seg Neutrophils % Sodium 136.9 L Potassium 3.4 L Chloride 108 H Carbon Dioxide 22 Anion Gap 7 BUN 12 Creatinine 0.43 L Est GFR ( Amer) > 60 Glucose 105 Calcium 7.7 L Blood Type Antibody Screen Impressions: Chest X-Ray 09/24/19 22:38 IMPRESSION: No evidence of acute cardiopulmonary disease. Assessment and Plan - Diagnosis (1) Neutropenia with fever Is this a current diagnosis for this admission?: Yes Plan: Continue Cefepime (2) Thrombocytopenia Is this a current diagnosis for this admission?: Yes Plan: Platelet transfusion as ordered, follow-up CBC (3) Atrial fibrillation with rapid ventricular response Is this a current diagnosis for this admission?: Yes Plan: Lopressor IV, Restart Sotalol (4) Hypokalemia Is this a current diagnosis for this admission?: Yes Plan: Will replace (5) Myelodysplastic syndrome Is this a current diagnosis for this admission?: Yes Plan: Underlying responsible for her myelodysplasia (6) Sepsis Is this a current diagnosis for this admission?: Yes Plan: Although precise etiology is is is unknown however patient is neutropenic and running a constant fever - Plan Summary Summary: Patient has history of MDS/AML and is followed closely by the oncology. She was admitted with neutropenic fever. She received oral antibiotics as outpatient but did not improve. She has been on cefepime since admission. Patient has severe thrombocytopenia with platelet count of 5000 and ANC of less than 500. He has been seen by oncology and recommendations noted. Plan is for her to be transfused with platelets again. She received packed red blood cell and pl atelet transfusion on September 24 - Time Time Spent with patient: 15-24 minutes
[2019-09-26] MEDS ORDERED: DILTIAZEM HCL INJ 25 MG/5 ML VIAL ONE (19:43)
[2019-09-26] MEDS ORDERED: DILTIAZEM HCL/D5W 125 MG/125 ML RTUINJ IV ONE (19:46)
[2019-09-26] MEDS ORDERED: DILTIAZEM HCL INJ 25 MG/5 ML VIAL IV ONE (20:15)
[2019-09-26] MEDS: DILTIAZEM HCL/D5W 125 MG/125 ML RTUINJ IV PRN (20:27)
[2019-09-26] MEDS: MONTELUKAST SODIUM 10 MG TABLET PO SCH (22:47)
[2019-09-27] MEDS ORDERED: ONDANSETRON HCL INJ/PF 4 MG/2 ML SDV ONE (01:16)
[2019-09-27] MEDS ORDERED: ONDANSETRON HCL INJ/PF 4 MG/2 ML SDV IV PRN (01:21)
[2019-09-27] MEDS: CEFEPIME HCL 2 GM in DEXTROSE 5%-WATER 50 ML IV SCH ×3 (02:21→18:13)
[2019-09-27] MEDS: DILTIAZEM HCL/D5W 125 MG/125 ML RTUINJ IV PRN (04:50)
[2019-09-27] MEDS ORDERED: DIPHENHYDRAMINE HCL 25 MG CAPSULE PO PRN (05:00)
[2019-09-27] MEDS ORDERED: ACETAMINOPHEN 325 MG TABLET PO PRN (05:00)
[2019-09-27 06:08] LABS: HEMATOCRIT 21.9 % (36.0-47.0); HEMOGLOBIN 8.1 g/dL (12.0-15.5); MEAN CORPUSCULAR HEMOGLOBIN 33.8 pg (27.0-33.4); MEAN CORPUSCULAR VOLUME 92 fl (80-97); RED BLOOD COUNT 2.39 10^6/uL (3.72-5.28); RED CELL DISTRIBUTION WIDTH 17.5 % (11.5-14.0); WHITE BLOOD COUNT 10.9 10^3/uL (4.0-10.5)
[2019-09-27 07:52] LABS: PLATELET COUNT 4 10^3/uL (150-450)
[2019-09-27 07:54] LABS: ABSOLUTE LYMPHOCYTES# (MANUAL) 5.9 10^3/uL (0.5-4.7); ABSOLUTE MONOCYTES # (MANUAL) 4.9 10^3/uL (0.1-1.4); BASOPHILS % (MANUAL) 0 % (0-2); EOSINOPHILS % (MANUAL) 0 % (0-6); LYMPHOCYTES % (MANUAL) 47 % (13-45); MONOCYTES % (MANUAL) 45 % (3-13); NUCLEATED RED BLOOD CELLS 3 /100 WBC (0); SEGMENTED NEUTROPHILS % (MAN) 1 % (42-78); TOTAL CELLS COUNTED 100
[2019-09-27 07:55] LABS: POLYCHROMASIA SLIGHT
[2019-09-27 07:56] LABS: ANISOCYTOSIS 1+; OVALOCYTES SLIGHT; POIKILOCYTOSIS SLIGHT; TEAR DROP CELLS SLIGHT
[2019-09-27 07:57] LABS: PLATELET COMMENT DECREASED
--- NOTE | 2019-09-27 08:38 | PDOC PROGRESS REPORT ---
Subjective Progress Note for:: 09/27/19 Subjective:: No acute events overnight, plt ct still 4 this am after 1 unit Reason For Visit: NEUTROPENIA,FEVER,PANCYTOPENIA Physical Exam Vital Signs: Temp Pulse Resp BP Pulse Ox 98.9 F 60 28 H 105/56 L 98 09/27/19 03:37 09/27/19 07:00 09/27/19 03:37 09/27/19 06:00 09/27/19 03:37 Intake & Output 09/26/19 09/27/19 09/28/19 06:59 06:59 06:59 Intake Total 4683 1029 3 Output Total 2900 Balance 1783 1029 3 Weight 73.4 kg 73.4 kg Results Laboratory Results: 09/27/19 05:24 09/26/19 04:24 09/25/19 09/27/19 02:40 05:24 WBC 10.9 H RBC 2.39 L Hgb 8.1 L Hct 21.9 L MCV 92 MCH 33.8 H MCHC 37.0 H RDW 17.5 H Plt Count 4 L* Seg Neutrophils % Not Reportable Blood Type A POSITIVE Antibody Screen NEGATIVE Impressions: Chest X-Ray 09/24/19 22:38 IMPRESSION: No evidence of acute cardiopulmonary disease. Assessment & Plan - Diagnosis (1) Neutropenia with fever Is this a current diagnosis for this admission?: Yes Plan: Still had fever pastrycook, cont current atbx but probably more likely related to fevers from leukemia. Reviewed path notes from peripheral smear and blasts are noted. 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 Will discuss w/ family today about this change. - Time Time Spent with patient: 15-24 minutes
[2019-09-27] MEDS: SOTALOL HCL 80 MG TABLET PO SCH ×2 (10:16→23:03)
[2019-09-27] MEDS: LORATADINE 10 MG TABLET PO SCH (10:16)
[2019-09-27] MEDS: ASCORBIC ACID 500 MG TABLET PO SCH (10:17)
[2019-09-27] MEDS: CALCIUM CARBONATE 600 MG TABLET PO SCH (10:17)
--- NOTE | 2019-09-27 12:09 | Progress Note ---
Provider Note Provider Note: Spoke w/ daughter today in office, recommended hospice care. They note that they would like to think about it and talk to the pt and her about it at home in a controlled environment. To that extent, I will give one more unit plt today and I discussed w/ Hospitalist team to plan for d/c tomorrow, then have home hospice consulted thereafter if family decides on that. Thus we will plan on d/c tomorrow.
--- NOTE | 2019-09-27 12:37 | PDOC PROGRESS REPORT ---
Subjective Progress Note for:: 09/27/19 Subjective:: Patient states that her breathing is improved. She still short of breath. COVID test is negative so she was moved out of the COVID unit. Patient was found to be tachycardic however she had been taking off her sotalol and this was restarted during the night 09/26 patient's condition remains pretty poor. I talked to Dr. Valdez At this point he thinks she may be hospice appropriate. The plan is to give her 1 more unit of platelet and will plan on discharge in a.m. for outpatient hospice arrangements to be made by Dr. Valdez Reason For Visit: NEUTROPENIA,FEVER,PANCYTOPENIA Physical Exam Vital Signs: Temp Pulse Resp BP Pulse Ox 98.9 F 60 28 H 105/56 L 98 09/27/19 03:37 09/27/19 07:00 09/27/19 03:37 09/27/19 06:00 09/27/19 03:37 Intake & Output 09/26/19 09/27/19 09/28/19 06:59 06:59 06:59 Intake Total 4683 1029 53 Output Total 2900 Balance 1783 1029 53 Weight 73.4 kg 73.4 kg General appearance: PRESENT: no acute distress, hard of hearing, other - Chronically ill looking Head exam: PRESENT: atraumatic, normocephalic Eye exam: PRESENT: conjunctiva pink, EOMI, PERRLA. ABSENT: scleral icterus Mouth exam: PRESENT: tongue midline Neck exam: ABSENT: carotid bruit, JVD, lymphadenopathy, thyromegaly Respiratory exam: PRESENT: clear to auscultation chapo. ABSENT: rales, rhonchi, wheezes Cardiovascular exam: PRESENT: RRR, +S1, +S2. ABSENT: diastolic murmur, rubs, systolic murmur Pulses: PRESENT: normal dorsalis pedis pul Vascular exam: PRESENT: normal capillary refill GI/Abdominal exam: PRESENT: normal bowel sounds, soft. ABSENT: distended, guarding, mass, organolmegaly, rebound, tenderness Rectal exam: PRESENT: deferred Extremities exam: PRESENT: full ROM. ABSENT: calf tenderness, clubbing, pedal edema Neurological exam: PRESENT: alert, awake, oriented to person, oriented to place, CN II-XII grossly intact. ABSENT: motor sensory deficit Psychiatric exam: PRESENT: normal mood. ABSENT: homicidal ideation, suicidal ideation Skin exam: PRESENT: dry, intact, warm. ABSENT: cyanosis, rash Results Laboratory Results: 09/27/19 05:24 09/26/19 04:24 09/25/19 09/27/19 02:40 05:24 WBC 10.9 H RBC 2.39 L Hgb 8.1 L Hct 21.9 L MCV 92 MCH 33.8 H MCHC 37.0 H RDW 17.5 H Plt Count 4 L* Seg Neutrophils % Not Reportable Blood Type A POSITIVE Antibody Screen NEGATIVE Impressions: Chest X-Ray 09/24/19 22:38 IMPRESSION: No evidence of acute cardiopulmonary disease. Assessment and Plan - Diagnosis (1) Neutropenia with fever Is this a current diagnosis for this admission?: Yes (2) Thrombocytopenia Is this a current diagnosis for this admission?: Yes Plan: Very severe with minimal response to transfused platelets. Will transfuse 1 mor e unit as per my discussions with Dr. DANIELS (3) Atrial fibrillation with rapid ventricular response Is this a current diagnosis for this admission?: Yes (4) Hypokalemia Is this a current diagnosis for this admission?: Yes (5) Myelodysplastic syndrome Is this a current diagnosis for this admission?: Yes (6) Sepsis Is this a current diagnosis for this admission?: Yes - Plan Summary Summary: Patient has history of MDS/AML and is followed closely by the oncology. She was admitted with neutropenic fever. She received oral antibiotics as outpatient but did not improve. She has been on cefepime since admission. Patient has severe thrombocytopenia with platelet count of 5000 and ANC of less than 500. He has been seen by oncology and recommendations noted. Plan is for her to be transfused with platelets again. She received packed red blood cell and platelet transfusion on September 24 She was placed on Cardizem drip during the night but she is currently at 2.5 mg/h so this will be discontinued. We will continue with her sotalol
[2019-09-27] MEDS: MONTELUKAST SODIUM 10 MG TABLET PO SCH (23:03)
[2019-09-28] MEDS: CEFEPIME HCL 2 GM in DEXTROSE 5%-WATER 50 ML IV SCH (02:21)
[2019-09-28] MEDS: ACETAMINOPHEN 325 MG TABLET PO PRN ×2 (03:50→11:42)
[2019-09-28] MEDS ORDERED: ACETAMINOPHEN 325 MG TABLET PO PRN (05:00)
[2019-09-28] MEDS ORDERED: FUROSEMIDE INJ/PF 20 MG/2 ML SDV IV PRN (05:00)
[2019-09-28] MEDS ORDERED: DIPHENHYDRAMINE HCL 25 MG CAPSULE PO PRN (05:00)
[2019-09-28 05:55] LABS: HEMATOCRIT 20.3 % (36.0-47.0); MEAN CORPUSCULAR HEMOGLOBIN 33.2 pg (27.0-33.4); MEAN CORPUSCULAR VOLUME 92 fl (80-97); RED BLOOD COUNT 2.21 10^6/uL (3.72-5.28); RED CELL DISTRIBUTION WIDTH 17.4 % (11.5-14.0); WHITE BLOOD COUNT 12.1 10^3/uL (4.0-10.5)
[2019-09-28 06:17] LABS: ABSOLUTE LYMPHOCYTES# (MANUAL) 5.6 10^3/uL (0.5-4.7); ABSOLUTE MONOCYTES # (MANUAL) 6.1 10^3/uL (0.1-1.4); BASOPHILS % (MANUAL) 0 % (0-2); EOSINOPHILS % (MANUAL) 0 % (0-6); LYMPHOCYTES % (MANUAL) 46 % (13-45); MONOCYTES % (MANUAL) 50 % (3-13); SEGMENTED NEUTROPHILS % (MAN) 0 % (42-78); TOTAL CELLS COUNTED 100
[2019-09-28 06:18] LABS: IMMATURE MONONUCLEAR% (MANUAL) 4 % (0)
[2019-09-28 06:19] LABS: ANISOCYTOSIS SLIGHT; OVALOCYTES SLIGHT; PLATELET COMMENT DECREASED; POIKILOCYTOSIS SLIGHT
[2019-09-28 06:22] LABS: HEMOGLOBIN 7.3 g/dL (12.0-15.5); PLATELET COUNT 4 10^3/uL (150-450)
--- NOTE | 2019-09-28 08:03 | PDOC PROGRESS REPORT ---
Subjective Progress Note for:: 09/28/19 Subjective:: Hb down to 7.3 today, will give 1 unit PRBC prior to d/c, d/w nursing, that will mean pt will leave in afternoon Reason For Visit: NEUTROPENIA,FEVER,PANCYTOPENIA Physical Exam Vital Signs: Temp Pulse Resp BP Pulse Ox 98.4 F 70 24 H 135/55 H 90 L 09/28/19 04:50 09/28/19 02:00 09/28/19 00:00 09/28/19 00:00 09/28/19 00:00 Intake & Output 09/27/19 09/28/19 09/29/19 06:59 06:59 06:59 Intake Total 1029 982 Balance 1029 982 Weight 73.4 kg 74 kg Results Laboratory Results: 09/28/19 05:06 09/26/19 04:24 09/25/19 09/28/19 02:40 05:06 WBC 12.1 H RBC 2.21 L Hgb 7.3 L Hct 20.3 L MCV 92 MCH 33.2 MCHC 36.0 RDW 17.4 H Plt Count 4 L* Seg Neutrophils % Not Reportable Blood Type A POSITIVE Antibody Screen NEGATIVE Impressions: Chest X-Ray 09/24/19 22:38 IMPRESSION: No evidence of acute cardiopulmonary disease. Assessment & Plan - Diagnosis (1) Neutropenia with fever Is this a current diagnosis for this admission?: Yes Plan: cont current therapy until d/c (2) Pancytopenia Is this a current diagnosis for this admission?: Yes Plan: 2nd MDS/AML, giving 1 more unit prbc today, holding on plt since there is not much response any longer. Giving blood b/c of known afib and hope that another unit will delay a resergence of rapid afib and may make the pt feel a little better at home. 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
[2019-09-28] MEDS ORDERED: AZITHROMYCIN 250 MG in DEXTROSE 5%-WATER 250 ML IV SCH (10:00)
[2019-09-28] MEDS: LORATADINE 10 MG TABLET PO SCH (11:42)
[2019-09-28] MEDS: ASCORBIC ACID 500 MG TABLET PO SCH (11:42)
[2019-09-28] MEDS: SOTALOL HCL 80 MG TABLET PO SCH (11:42)
[2019-09-28] MEDS: CALCIUM CARBONATE 600 MG TABLET PO SCH (11:43)
--- NOTE | 2019-09-28 15:44 | PDOC DISCHARGE SUMMARY ---
Impression - Admit/DC Date/PCP Admission Date/Primary Care Provider: 09/25/19 01:08 RKAAN HUTTON MD Discharge Date: 09/28/19 - Discharge Diagnosis (1) Neutropenia with fever Is this a current diagnosis for this admission?: Yes (2) Thrombocytopenia Is this a current diagnosis for this admission?: Yes (3) Atrial fibrillation with rapid ventricular response Is this a current diagnosis for this admission?: Yes (4) Hypokalemia Is this a current diagnosis for this admission?: Yes (5) Myelodysplastic syndrome Is this a current diagnosis for this admission?: Yes (6) Sepsis Is this a current diagnosis for this admission?: Yes - Assessment Summary: Patient has history of MDS/AML and is followed closely by the oncology. She was admitted with neutropenic fever. She received oral antibiotics as outpatient but did not improve. She has been on cefepime since admission. Patient has severe thrombocytopenia with platelet count of 5000 and ANC of less than 500. He has been seen by oncology and recommendations noted. Plan is for her to be transfused with platelets again. She received packed red blood cell and platelet transfusion on September 24 She was placed on Cardizem drip during the night but she is currently at 2.5 mg/h so this will be discontinued. We will continue with her sotalol - Additional Information Resuscitation Status: Full Code Discharge Activity: Activity As Tolerated Referrals: [facility] [Outside] (PATIENT WILL BE FOLLOWED BY [facility]. UPON D/C ON SELF QUARANTINE. ONCE CLEARED BY THEM PATIENT MAY MAKE A FOLLOW UP APPT. WITH PCP.) RAKAN HUTTON MD [Primary Care Provider] - Follow up as needed Prescriptions: Amoxicillin/Potassium Clav [Augmentin 875-125 Tablet] 1 tab PO NOW #10 tablet Home Medications: Loratadine [Claritin 10 mg Tablet] 10 mg PO DAILY 04/13/19 Lorazepam [Ativan 1 mg Tablet] 1 mg PO TIDP PRN 04/13/19 Sotalol HCl [Sotalol AF] 120 mg PO Q12 04/13/19 Ascorbic Acid [Vitamin C 500 mg Tablet] 500 mg PO DAILY 09/25/19 Calcium Carbonate [Os-Shilo 500 mg Tablet (Oyster-Shell)] 500 mg PO DAILY 09/25/19 Chlorhexidine Gluconate [Periogard 0.12% Oral Rinse 15 ml] 15 ml MM BIDP PRN 09/25/19 Lutein Extract/Zeaxanthin Ext [Lutein 15 mg Softgel] 1 each PO DAILY 09/25/19 Montelukast Sodium [Singulair 10 mg Tablet] 10 mg PO QHS 09/25/19 Multivit-Min/Iron/Folic/Lutein [Centrum Silver Women Tablet] 1 each PO DAILY 09/25/19 Rosuvastatin Calcium [Crestor] 20 mg PO QHS 09/25/19 Fluticasone Propionate [Flonase Nasal Sanderson 50 Mcg/Sanderson 16 gm] 1 spray NASL Q12 09/26/19 Amoxicillin/Potassium Clav [Augmentin 875-125 Tablet] 1 tab PO NOW #10 tablet 09/28/19 History of Present Illiness History of Present Illness: PHOEBE SOSA is a 78 year old female Patient admitted with neutropenic fever. She has the underlying history of myelodysplastic syndrome. Has acute myeloid leukemia. Blood count was found to be 5000 on presentation to the emergency room. She also had a fever of 101. Patient was admitted for further management. Hospital Course Hospital Course: Was started on empiric antibiotics due to being neutropenic and febrile. She was started on cefepime and Zithromax which she received through today September 27. Patient's platelet count was diminished at 6000. She received multiple units of platelets with the last being on September 26 but despite this her platelet count remained suppressed at 4000. She also received 3 units packed red blood cells transfusion. Patient also went into atrial fibrillation with a rapid kyle tricular response. Her home sotalol had been held initially and so she had to be briefly placed on Cardizem drip. She has since been restarted on sotalol with improved rate. She was tested for coronavirus and this was negative Patient's persistent severe thrombocytopenia Dr. Glass feels at this time the patient will be better served with hospice and he has talked with the family. The plan is to continue with this instrument outpatient but in the interim it appears we have very little to offer this patient at this time so she is to be discharged home today after receiving blood transfusion Patient does continue to have hemoptysis, mild however this is secondary to her severe thrombocytopenia and no further intervention planned at this time Physical Exam Vital Signs: Temp Pulse Resp BP Pulse Ox 98.3 F 110 H 28 H 116/62 92 09/28/19 15:20 09/28/19 15:20 09/28/19 15:20 09/28/19 15:20 09/28/19 15:20 Intake & Output 09/27/19 09/28/19 09/29/19 06:59 06:59 06:59 Intake Total 1029 982 0 Balance 1029 982 0 Weight 73.4 kg 74 kg General appearance: PRESENT: no acute distress, well-developed Head exam: PRESENT: atraumatic, normocephalic Eye exam: PRESENT: conjunctiva pink, PERRLA. ABSENT: scleral icterus Ear exam: PRESENT: normal external ear exam Mouth exam: PRESENT: moist, tongue midline Neck exam: ABSENT: carotid bruit, JVD, lymphadenopathy, thyromegaly Respiratory exam: PRESENT: clear to auscultation chapo. ABSENT: rales, rhonchi, wheezes Cardiovascular exam: PRESENT: irregular rhythm, +S1, +S2. ABSENT: diastolic murmur, rubs, systolic murmur Pulses: PRESENT: normal dorsalis pedis pul Vascular exam: PRESENT: normal capillary refill GI/Abdominal exam: PRESENT: normal bowel sounds, soft. ABSENT: distended, guarding, mass, organolmegaly, rebound, tenderness Rectal exam: PRESENT: deferred Extremities exam: PRESENT: full ROM. ABSENT: calf tenderness, clubbing, pedal edema Neurological exam: PRESENT: alert, awake, oriented to person, oriented to place, oriented to time, oriented to situation, CN II-XII grossly intact. ABSENT: motor sensory deficit Psychiatric exam: PRESENT: appropriate affect, normal mood. ABSENT: homicidal ideation, suicidal ideation Skin exam: PRESENT: dry, intact, warm. ABSENT: cyanosis, rash Results Laboratory Results: WBC 12.1 10^3/uL (4.0-10.5) H 09/28/19 05:06 RBC 2.21 10^6/uL (3.72-5.28) L 09/28/19 05:06 Hgb 7.3 g/dL (12.0-15.5) L 09/28/19 05:06 Hct 20.3 % (36.0-47.0) L 09/28/19 05:06 MCV 92 fl (80-97) 09/28/19 05:06 MCH 33.2 pg (27.0-33.4) 09/28/19 05:06 MCHC 36.0 g/dL (32.0-36.0) 09/28/19 05:06 RDW 17.4 % (11.5-14.0) H 09/28/19 05:06 Plt Count 4 10^3/uL (150-450) L* 09/28/19 05:06 Lymph % (Auto) Not Reportable 09/28/19 05:06 Dundy % (Auto) Not Reportable 09/28/19 05:06 Eos % (Auto) Not Reportable 09/28/19 05:06 Baso % (Auto) Not Reportable 09/28/19 05:06 Absolute Neuts (auto) Not Reportable 09/28/19 05:06 Absolute Lymphs (auto) Not Reportable 09/28/19 05:06 Absolute Monos (auto) Not Reportable 09/28/19 05:06 Absolute Eos (auto) Not Reportable 09/28/19 05:06 Absolute Basos (auto) Not Reportable 09/28/19 05:06 Total Counted 100 09/28/19 05:06 Seg Neutrophils % Not Reportable 09/28/19 05:06 Seg Neuts % (Manual) 0 % (42-78) L 09/28/19 05:06 Lymphocytes % (Manual) 46 % (13-45) H 09/28/19 05:06 Atypical Lymphs % 7 % (0) 09/27/19 05:24 Monocytes % (Manual) 50 % (3-13) H 09/28/19 05:06 Eosinophils % (Manual) 0 % (0-6) 09/28/19 05:06 Basophils % (Manual) 0 % (0-2) 09/28/19 05:06 Metamyelocytes % 1 % (0-1) 09/26/19 04:24 Myelocytes % 1 % (0) H 09/25/19 05:15 Immature Leukocytes % 4 % (0) H 09/28/19 05:06 Abs Neuts (Manual) 0.0 10^3/uL (1.7-8.2) L 09/28/19 05:06 Abs Lymphs (Manual) 5.6 10^3/uL (0.5-4.7) H 09/28/19 05:06 Abs Monocytes (Manual) 6.1 10^3/uL (0.1-1.4) H 09/28/19 05:06 Absolute Eos (Manual) 0.0 10^3/uL (0.0-0.6) 09/28/19 05:06 Abs Basophils (Manual) 0.0 10^3/uL (0.0-0.2) 09/28/19 05:06 Nucleated RBCs 3 /100 WBC (0) 09/27/19 05:24 Toxic Granulation SLIGHT 09/26/19 04:24 Toxic Vacuolation PRESENT 09/26/19 04:24 WBC Morphology Comment Not Reportable 09/24/19 23:03 Platelet Comment DECREASED 09/28/19 05:06 Polychromasia SLIGHT 09/27/19 05:24 Poikilocytosis SLIGHT 09/28/19 05:06 Anisocytosis SLIGHT 09/28/19 05:06 Macrocytosis SLIGHT 09/25/19 05:15 Tear Drop Cells SLIGHT 09/27/19 05:24 Ovalocytes SLIGHT 09/28/19 05:06 Schistocytes SLIGHT 09/26/19 04:24 PT 16.5 SEC (11.4-15.4) H 09/24/19 23:03 INR 1.32 09/24/19 23:03 VBG pH 7.45 (7.30-7.42) H 09/24/19 23:03 VBG pCO2 35.0 mmHg (35-63) 09/24/19 23:03 VBG HCO3 23.5 mmol/L (20-32) 09/24/19 23:03 VBG Base Excess -0.3 mmol/L 09/24/19 23:03 Sodium 136.9 mmol/L (137-145) L 09/26/19 04:24 Potassium 3.4 mmol/L (3.6-5.0) L 09/26/19 04:24 Chloride 108 mmol/L (98-107) H 09/26/19 04:24 Carbon Dioxide 22 mmol/L (22-30) 09/26/19 04:24 Anion Gap 7 (5-19) 09/26/19 04:24 BUN 12 mg/dL (7-20) 09/26/19 04:24 Creatinine 0.43 mg/dL (0.52-1.25) L 09/26/19 04:24 Est GFR ( Amer) > 60 (>60) 09/26/19 04:24 Est GFR (MDRD) Non-Af > 60 (>60) 09/26/19 04:24 Glucose 105 mg/dL (75-110) 09/26/19 04:24 POC Glucose 94 mg/dL (70-110) 09/26/19 07:57 Lactic Acid 2.0 mmol/L (0.7-2.1) 09/24/19 23:03 Calcium 7.7 mg/dL (8.4-10.2) L 09/26/19 04:24 Total Bilirubin 0.6 mg/dL (0.2-1.3) 09/24/19 23:03 Direct Bilirubin 0.0 mg/dL (0.0-0.4) 09/24/19 23:03 Neonat Total Bilirubin Not Reportable 09/24/19 23:03 Neonat Direct Bilirubin Not Reportable 09/24/19 23:03 Neonat Indirect Bili Not Reportable 09/24/19 23:03 AST 36 U/L (14-36) 09/24/19 23:03 ALT 15 U/L (<35) 09/24/19 23:03 Alkaline Phosphatase 50 U/L (38-126) 09/24/19 23:03 Total Protein 6.7 g/dL (6.3-8.2) 09/24/19 23:03 Albumin 3.4 g/dL (3.5-5.0) L 09/24/19 23:03 Urine Color YELLOW 09/25/19 03:55 Urine Appearance CLEAR 09/25/19 03:55 Urine pH 7.0 (5.0-9.0) 09/25/19 03:55 Ur Specific [place] 1.011 09/25/19 03:55 Urine Protein 100 mg/dL (NEGATIVE) H 09/25/19 03:55 Urine Glucose (UA) NEGATIVE mg/dL (NEGATIVE) 09/25/19 03:55 Urine Ketones NEGATIVE mg/dL (NEGATIVE) 09/25/19 03:55 Urine Blood LARGE (NEGATIVE) H 09/25/19 03:55 Urine Nitrite (Reflex) NEGATIVE (NEGATIVE) 09/25/19 03:55 Urine Bilirubin NEGATIVE (NEGATIVE) 09/25/19 03:55 Urine Urobilinogen NEGATIVE mg/dL (<2.0) 09/25/19 03:55 Leukocyte Esterase Rfl NEGATIVE (NEGATIVE) 09/25/19 03:55 Urine RBC (Auto) 36 /HPF 09/25/19 03:55 U Hyaline Cast (Auto) 3 /LPF 09/25/19 03:55 Urine Bacteria (Auto) TRACE /HPF 09/25/19 03:55 Urine WBC (Reflex) 3 /HPF 09/25/19 03:55 Squamous Epi Cells Auto 1 /HPF 09/25/19 03:55 Urine Mucus (Auto) OCC /LPF 09/25/19 03:55 Urine Ascorbic Acid NEGATIVE (NEGATIVE) 09/25/19 03:55 COVID-19 Source NASOPHARYNGEAL 09/25/19 01:54 COVID-19 (CHDA) NOT DETECTED 09/25/19 01:54 Slides for Path Review SEE COMMENT 09/28/19 05:06 Blood Type A POSITIVE 09/28/19 08:25 Blood Type Confirm A POSITIVE 09/25/19 02:40 Antibody Screen NEGATIVE 09/28/19 08:25 Crossmatch See Detail 09/28/19 08:25 Impressions: Chest X-Ray 09/24/19 22:38 IMPRESSION: No evidence of acute cardiopulmonary disease. Plan Health Concerns: Unfortunately patient's prognosis is very poor has very short survival odds Plan of Treatment: Plan is to arrange for outpatient hospice by Dr. Hutton Time Spent: Greater than 30 Minutes Stroke Is this a Stroke Patient?: No Acute Heart Failure - Is this a Heart Failure Patient?: No
[2019-09-28 16:11] VITALS: BP 113/56
[2019-09-29] MEDS ORDERED: AZITHROMYCIN 250 MG TABLET PO SCH (10:00)
== END 2019-09-28 17:10 | disposition home or self-care (01) | DRG 835 ==
LOC: ER 21:36 → EH 09-25 01:08 → 5 09-25 03:50 → 3W 09-26 10:25
PROVIDERS: ADMIT Internal Medicine; ATTEND Internal Medicine
PROC: 30233R1 Transfusion of Nonautologous Platelets into Peripheral Vein, Percutaneous Approach (ICD-10-PCS; principal; 2019-09-25)
PROC: 30233N1 Transfusion of Nonautologous Red Blood Cells into Peripheral Vein, Percutaneous Approach (ICD-10-PCS; 2019-09-25)
PROC: 30233R1 Transfusion of Nonautologous Platelets into Peripheral Vein, Percutaneous Approach (ICD-10-PCS; 2019-09-26)
PROC: 30233R1 Transfusion of Nonautologous Platelets into Peripheral Vein, Percutaneous Approach (ICD-10-PCS; 2019-09-27)
PROC: 30233N1 Transfusion of Nonautologous Red Blood Cells into Peripheral Vein, Percutaneous Approach (ICD-10-PCS; 2019-09-28)
DX: C92.02 Acute myeloblastic leukemia, in relapse (principal); D61.818 Other pancytopenia; R50.81 Fever presenting with conditions classified elsewhere; D46.9 Myelodysplastic syndrome, unspecified; I48.91 Unspecified atrial fibrillation; E87.6 Hypokalemia; E78.00 Pure hypercholesterolemia, unspecified; I10 Essential (primary) hypertension; D69.6 Thrombocytopenia, unspecified; J01.00 Acute maxillary sinusitis, unspecified; Z03.818 Encounter for observation for suspected exposure to other biological agents ruled out
CPT/HCPCS: 36415; 36430; 71045; 80048; 80053; 81001; 82803; 82962; 83605; 85025; 85610; 86850; 86900; 86901; 86920; 87040; 87635; 93005; 93010; 94640; 94799; 96360; 99285; J0456; J0692; J1940; J2405; J3490; J7030; J7040; J7060; P9016; P9035